=== PATIENT | female | born 1955 | race African-American/Black ===

== ENCOUNTER 2018-08-14 16:31 | Inpatient (IN) | payer MEDICARE, MEDICAID | END 2018-08-17 18:50 | LOC: ER 16:31 → OVERFLOW 20:49 → WEST WING 21:44 | DX: G40.89 Other seizures (principal); N18.6 End stage renal disease; I13.11 Hypertensive heart and chronic kidney disease without heart failure, with stage 5 chronic kidney disease, or end stage renal disease; E11.22 Type 2 diabetes mellitus with diabetic chronic kidney disease ==

== ENCOUNTER 2018-09-24 19:57 | Emergency (ER) | payer MEDICARE, MEDICAID ==
[~2018-09-24] VITALS: Ht 165.1 cm; Wt 68.0 kg
[~2018-09-24 19:57] MED LIST: ASP81EC PO; HYDR-4296 PO; KEP500T PO; MIRT15TA PO
[2018-09-24 21:20] LABS: Basophils # (auto) 0.1 uL; Basophils % (auto) 1.1 % (0.0-2.0); Eosinophils # (auto) 0.2 uL; Eosinophils % (auto) 1.7 % (0.0-7.0); Hematocrit 35.5 % (36.0-46.0); Hemoglobin 11.8 g/dL (12.2-16.2); Lymphocytes # (auto) 2.2 uL; Lymphocytes % (auto) 22.2 % (10.0-50.0); Mean Corpuscular Hemoglobin 30.3 pg (28.0-32.0); Mean Corpuscular Hgb Conc. 33.1 g/dL (32.0-36.0); Mean Corpuscular Volume 91.6 fL (80.0-100.0); Monocytes # (auto) 0.9 uL; Monocytes % (auto) 9.6 % (0.0-12.0); Neutrophils # (auto) 6.4 uL; Neutrophils % (auto) 65.4 % (37.0-80.0); Nucleated Red Blood Cells % 0.1 %; Platelet Count (auto) 217 10^3/uL (140-450); Red Blood Cells 3.88 10^6/uL (4.0-5.20); Red Cell Distribution Width 15.9 % (11.8-14.3); White Blood Cell 9.8 10^3/uL (4.4-10.8)
[2018-09-24 21:36] LABS: Albumin 3.5 g/dL (3.4-5.0)
[2018-09-24 21:40] LABS: BUN/Creatinine Ratio 4.1; Bilirubin, Total 0.6 mg/dL (0.2-1.0)
[2018-09-24 21:41] LABS: INR 0.96 (0.9-1.15); Prothrombin Time 10.3 sec (9.27-12.13)
[2018-09-24] MEDS ORDERED: LORazepam 2MG/ML-1ML VIAL ONE (21:47)
[2018-09-24] MEDS ORDERED: LORazepam 2MG/ML-1ML VIAL IV ONE (22:00)
[2018-09-24] MEDS ORDERED: cefTRIAXone 1GM/50ML D5W 50 ML IV ONE (23:15)
[2018-09-24] MEDS ORDERED: cefTRIAXone W LIDOCAINE 1 GM IM IM ONE (23:45)
[2018-09-25] MEDS ORDERED: cefTRIAXone SOD 1,000 MG VL ONE (00:17)
[2018-09-25 05:50] VITALS: BP 105/44
== END 2018-09-25 06:28 | disposition home or self-care (01) ==
LOC: EDBD → MERGE 20:02 → ER 20:02
DX: N30.01 Acute cystitis with hematuria (principal); E11.22 Type 2 diabetes mellitus with diabetic chronic kidney disease; I12.0 Hypertensive chronic kidney disease with stage 5 chronic kidney disease or end stage renal disease; N18.6 End stage renal disease; Z99.2 Dependence on renal dialysis; Z79.4 Long term (current) use of insulin; Z86.73 Personal history of transient ischemic attack (TIA), and cerebral infarction without residual deficits
CPT/HCPCS: 36415; 74176; 80053; 85025; 85610; 85730; 96372; 96374; 99284; J0696; J2060

== ENCOUNTER 2018-12-18 19:33 | Inpatient (IN) | payer MEDICARE, MEDICAID ==
[~2018-12-18] VITALS: Ht 162.6 cm; Wt 71.6 kg
[2018-12-18] MEDS ORDERED: cloNIDine HCL 0.1 MG TAB PO ONE (20:45)
[2018-12-18 20:55] LABS: Basophils # (auto) 0.1 uL; Basophils % (auto) 0.5 % (0.0-2.0); Eosinophils # (auto) 0 uL; Eosinophils % (auto) 0.4 % (0.0-7.0); Hematocrit 36.8 % (36.0-46.0); Lymphocytes # (auto) 1.5 uL; Lymphocytes % (auto) 14.1 % (10.0-50.0); Mean Corpuscular Hemoglobin 30.1 pg (28.0-32.0); Mean Corpuscular Hgb Conc. 32.7 g/dL (32.0-36.0); Mean Corpuscular Volume 91.9 fL (80.0-100.0); Monocytes # (auto) 0.9 uL; Monocytes % (auto) 8.4 % (0.0-12.0); Neutrophils # (auto) 8.4 uL; Neutrophils % (auto) 76.6 % (37.0-80.0); Nucleated Red Blood Cells % 0.1 %; Platelet Count (auto) 136 10^3/uL (140-450); Red Blood Cells 4.01 10^6/uL (4.0-5.20); Red Cell Distribution Width 15.1 % (11.8-14.3)
[2018-12-18 21:12] LABS: Chloride 101 mmol/L (98-107); Sodium 138 mmol/L (136-145)
[2018-12-18] MEDS ORDERED: MORPHINE SULF INJ 2 MG/ML SYRINGE 1ML IM ONE (21:15)
[2018-12-18 21:16] LABS: Alanine Aminotransferase 23 U/L (13-56); Albumin 3.8 g/dL (3.4-5.0); Anion Gap 14 (5-15); Aspartate Aminotransferase 28 U/L (15-37); BUN/Creatinine Ratio 5.7; Blood Alcohol < 3.0 mg/dL (0-5); Blood Urea Nitrogen 65 mg/dL (7-18); Carbon Dioxide 23 mmol/L (21-32); GFR African American 4 mL/min; GFR Non-African American 4 mL/min; Glucose 99 mg/dL (74-106)
[2018-12-18 21:18] LABS: Alkaline Phosphatase 192 U/L (45-117); Total Protein 9.4 g/dL (6.4-8.2)
[2018-12-18 21:23] LABS: Potassium 6.3 mmol/L (3.5-5.1)
[2018-12-18] MEDS ORDERED: ONDANSETRON HCL 4 MG/2 ML VIAL IV ONE (21:30)
[2018-12-18] MEDS ORDERED: SODIUM BICARBONATE 8.4 % INJ 50ML VIAL IV ONE (21:30)
[2018-12-18] MEDS ORDERED: DEXTROSE (50%) 50ML SYRG IV ONE (21:30)
[2018-12-18] MEDS ORDERED: InsuLIN REG 1unit/0.01ml Soln (100units/ml) IV ONE (21:30)
[2018-12-18] MEDS: CLOPIDOGREL BISULFATE 75 MG TAB PO ONE ×2 (23:11→23:20)
[2018-12-18] MEDS ORDERED: SODIUM CHLORIDE 0.9% 500 ML IV ONE (23:15)
[2018-12-19] VITALS (7 sets, daily range): BP systolic 139–163; BP diastolic 72–86
[2018-12-19] MEDS ORDERED: metroNIDAZOLE 500MG/100ML 100 ML IV ONE (00:45)
[2018-12-19] MEDS ORDERED: cefTRIAXone 1GM/50ML D5W 50 ML IV ONE (00:45)
[2018-12-19] MEDS ORDERED: ACETAMINOPHEN 500 MG TAB PO PRN (02:15)
[2018-12-19] MEDS ORDERED: LORazepam 2MG/ML-1ML VIAL IV PRN (02:15)
[2018-12-19] MEDS ORDERED: ONDANSETRON HCL 4 MG/2 ML VIAL IV PRN (02:15)
[2018-12-19] MEDS ORDERED: CALCIUM GLUC 4.65meq/50ml D5AE 50 ML IV ONE (02:15)
[2018-12-19] MEDS ORDERED: DEXTROSE (50%) 50ML SYRG IV PRN (03:00)
[2018-12-19 03:12] LABS: Basophils # (auto) 0 uL; Basophils % (auto) 0.3 % (0.0-2.0); Eosinophils # (auto) 0 uL; Eosinophils % (auto) 0.5 % (0.0-7.0); Lymphocytes # (auto) 1.9 uL; Mean Corpuscular Hemoglobin 29.9 pg (28.0-32.0); Mean Corpuscular Hgb Conc. 32.4 g/dL (32.0-36.0); Mean Corpuscular Volume 92.3 fL (80.0-100.0); Monocytes % (auto) 11.1 % (0.0-12.0); Neutrophils # (auto) 6.4 uL; Neutrophils % (auto) 68.1 % (37.0-80.0); Nucleated Red Blood Cells % 0.2 %; Platelet Count (auto) 122 10^3/uL (140-450); Red Blood Cells 3.69 10^6/uL (4.0-5.20); White Blood Cell 9.5 10^3/uL (4.4-10.8)
[2018-12-19 03:31] LABS: BUN/Creatinine Ratio 6.1; Calcium 10.1 mg/dL (8.5-10.1)
[2018-12-19 03:37] LABS: Potassium 6.4 mmol/L (3.5-5.1)
[2018-12-19] MEDS ORDERED: SODIUM BICARBONATE 8.4 % INJ 50ML VIAL IV ONE (03:45)
[2018-12-19] MEDS ORDERED: DEXTROSE (50%) 50ML SYRG IV ONE (03:45)
[2018-12-19] MEDS ORDERED: InsuLIN REG 1unit/0.01ml Soln (100units/ml) IV ONE (03:45)
[2018-12-19] MEDS ORDERED: hydrALAZINE HCL 20 MG/ML VL IV ONE (04:45)
[2018-12-19] MEDS: InsuLIN REG 1unit/0.01ml Soln (100units/ml) SC SCH ×3 (06:00→18:00)
[2018-12-19] MEDS: hydrALAZINE HCL 25 MG TAB PO SCH ×3 (06:00→22:14)
--- NOTE | 2018-12-19 06:10 | NUR ---
Telemetry admit from ER MIGUEL OLIVARES admitted to Telemetry unit after SBAR received. Patient oriented to Dania avendaño RN, unit, room, bed, and unit policies regarding patient care and visiting hours. Patient now on continuous telemetry monitoring, tele box # 31 and telemetry reading on arrival to unit is SINUS RHYTHM AT 63. Patient placed on bedside oxygen, weighed by bedscale and encouraged to call if they need something. All questions and concerns addressed, patient verbalized understanding. Note: FALL PRECAUTIONS AND SEIZURE PRECAUTIONS INITIATED. SOLE FILLER AT BEDSIDE. PATIENT AROUSABLE TO STERNAL RUB. WILL OPEN EYES AND THEN WILL CLOSE EYES AGAIN.
--- NOTE | 2018-12-19 06:25 | NUR ---
BLOOD SUGAR CHECKED, 27 MG/DL AND 32 MG/DL ON SECOND CHECK. WILL MEDICATED WITH D50. PATIENT UNABLE TO DRINK ANY JUICE AT THIS TIME.
[2018-12-19] MEDS: ACCU-CHEK COMFORT CURVE STRIP VI SCH ×3 (06:30→18:00)
--- NOTE | 2018-12-19 06:50 | NUR ---
PAGED HOSPITALIST RE; PRN FOR BP AND DIET. AWAITING CALLBACK.
--- NOTE | 2018-12-19 06:55 | NUR ---
RECHECKED BS - 118 MG/DL. CONTINUE PATIENT CARE
--- NOTE | 2018-12-19 07:35 | NUR ---
Opening Shift Note Assumed care of patient, currently sleeping, currently on 2L via NC, breathing even and unlabored, HOB >30, bed alarm on and call light within reach. No S/S of distress/SOB or pain reported at this time. Patient easily awakened via verbal and tactile stimuli, IV 20g to right upper shoulder site benign and patent, will continue to monitor for changes Q1hr and PRN.
--- NOTE | 2018-12-19 08:10 | NUR ---
FAMILY SPOKE WITH NIECE ANJANA, UPDATED ON POC, STATES PT LIVES AT HOME WITH HER, AND NOT AT A SNF, [facility]
--- NOTE | 2018-12-19 08:13 | NUR ---
PAGED DR CONDE REGARDING CONSULT AND DIALYSIS ORDERS, SPOKE WITH KWASI PENA
[2018-12-19] MEDS ORDERED: SODIUM CHL 0.9% 1000 ML BAG XX ONE (10:45)
--- NOTE | 2018-12-19 10:50 | NUR ---
ADJUNCT SPANISH INSTRUCTOR AT BEDSIDE GENARO S.S AT BEDSIDE DISCUSSING POC WITH PT, CONT CARE
[2018-12-19] MEDS: metroNIDAZOLE 500MG/100ML 100 ML IV SCH ×3 (10:58→22:12)
[2018-12-19] MEDS: LEVETIRACETAM 500 MG TAB PO SCH ×2 (10:58→22:15)
[2018-12-19] MEDS: PANTOPRAZOLE 40 MG TAB PO SCH (10:58)
--- NOTE | 2018-12-19 11:44 | NUR ---
DIALYSIS AT BEDSIDE FOR TX, PT ASYMPTOMATIC, AXOX4, CONT CARE
--- NOTE | 2018-12-19 15:06 | NUR ---
DIALYSIS TX ENDED 3.5L WERE REMOVED, AND VS 139/72, PT AWAKE AXOX4, REQUESTING MEAL, PT CURRENTLY NPO PENDING HIDA SCAN, PT UPDATED ON POC, CONT CARE
--- NOTE | 2018-12-19 15:32 | NUR ---
IV Insertion to Right Upper Arm, 20g, using US machine x 1 attempt. Sterile technique used, patent, intact. Tolerated well. Primary RN notified.
--- NOTE | 2018-12-19 15:48 | NUR ---
IV insertion IV access obtained, via clean sterile technique by inserting 20 gauge catheter at Right upper arm after 1 attempt by Radiology nurse Joseph. IV secured properly. No trauma to site. Patient tolerated well.
[2018-12-19] MEDS: SODIUM CHLORIDE 0.9% 1,000 ML IV SCH (16:15)
--- NOTE | 2018-12-19 16:15 | NUR ---
assessment Patient is a 63 year old female who is answering appropriately. Prior to admission patient lived home with her niece Zofia and functioned with assistance. Patient is on dialysis with [facility] . Patients emergency contact is Zofia her niece [phone]. I informed patient she has a right to speak to a medical social consultant regarding all care. I informed patient she has a right to participate in any and all discharge planning. Patient is aware of visiting hours on the hospital floor. I informed patient she has a right to privacy. Patient does not have a POA and advanced directive. I have offered patient information on POA and advanced directives. I informed the patient the advantages and benefits of having an Advanced Directive. Patient verbalized understanding and agreed to discharge plan. Per ss consult from SNF. Patient discharged from [facility] once her IV ABX was finished and went home with her family. Addendum: 12/19/18 at 1620 by Niesha PERAZA Amended: Links added.
--- NOTE | 2018-12-19 18:00 | NUR ---
SKIN SACRAL OPTIFOAM APPLIED FOR PREVENTATIVE REASON TO SACRUM, SITE INTACT, NO OPEN AREAS NOTED, ABD FOLD CONT TO APPLY Z-GUARD AND PLACE A PILLOW CASE TO MINIMIZE MOISTURE, CONT CARE
--- NOTE | 2018-12-19 19:05 | NUR ---
SHIFT REPORT GIVEN TO NIGHT RN LYNNETTE, PT CURRENTLY AWAKE, AXOX4, NO DISTRESS NOTED, BREATHING EVEN AND UNLABORED, NO C/O CP SOB, N/V AT THIS TIME, SIDE RAILS PADDED FOR SEIZURE PRECAUTIONS, HOB >30, CALL LIGHT WITHIN REACH AND BED ALARM ON
--- NOTE | 2018-12-19 19:45 | NUR ---
Opening Shift Note Assumed care of patient, that is awake and alert. No S/S of distress/SOB and patient is currently using nasal canula with 4 liters. Patient's has history of seizures so safety precautions set with padded side rails and bed at lowest height. Instructed POC which includes NPO after midnight for imaging on 12/20.Call light within reach and instructed to use for assist PRN, will continue to monitor. Signed: 12/19/18 at 2330 by SN AUSTIN <Co-Signature Required> Co-Signed: 12/19/18 at 2330 by LYNNETTE OHARA RN
[2018-12-19] MEDS: MIRTAZAPINE 30 MG TAB PO SCH (22:14)
[2018-12-20] MEDS: InsuLIN REG 1unit/0.01ml Soln (100units/ml) SC SCH ×5 (00:31→23:58)
[2018-12-20] MEDS: ACCU-CHEK COMFORT CURVE STRIP VI SCH ×5 (00:31→23:02)
[2018-12-20 04:49] VITALS: BP 136/68
[2018-12-20] MEDS: metroNIDAZOLE 500MG/100ML 100 ML IV SCH ×3 (05:32→22:00)
[2018-12-20] MEDS: hydrALAZINE HCL 25 MG TAB PO SCH ×3 (05:39→22:00)
[2018-12-20] MEDS: PANTOPRAZOLE 40 MG TAB PO SCH (06:11)
--- NOTE | 2018-12-20 07:30 | NUR ---
Opening Shift Note Assuming care of patient at this time. Patient is awake, alert, and oriented x4. Patient is resting in bed. Bed is locked and lowered with side rails upx2. Patient denies pain. Patient shows no signs or symptoms of distress or shortness of breath. Instructed patient on the plan of care for today and to call for assistance as needed. Patient is aware of nothing by mouth status. Will continue to round hourly and as needed. Call light within reach. Sitter at bedside.
--- NOTE | 2018-12-20 08:00 | NUR ---
Patient complaining of hunger Patient is complaining that she cannot have anything to eat. Notified patient that she cannot have anything to eat or drink due to her having a HIDA scan later today. Patient continues to say that she wants something to eat.
--- NOTE | 2018-12-20 08:30 | NUR ---
Patient Complaining of Hunger Patient is complaining of hunger and wants to eat. Reeducated patient on the upcoming procedure.
--- NOTE | 2018-12-20 08:45 | NUR ---
Patient complaining of Hunger Patient wants to eat. Told patient that she cannot have anything to eat. Educated patient on the upcoming procedure.
--- NOTE | 2018-12-20 08:52 | NUR ---
Call to Nuclear Medicine Patient will go to HIDA scan around 12 or 1 this afternoon. Will notify patient.
--- NOTE | 2018-12-20 08:55 | NUR ---
Call from Family Call from Niece at this time. Addressed all questions and concerns at this time.
[2018-12-20 09:00] VITALS: BP 104/44
[2018-12-20 09:32] LABS: Albumin 3.2 g/dL (3.4-5.0); Calcium 9.2 mg/dL (8.5-10.1); Magnesium 2.4 mg/dL (1.6-2.6); Potassium 4.5 mmol/L (3.5-5.1)
[2018-12-20 09:35] LABS: BUN/Creatinine Ratio 5.4; Bilirubin, Total 0.5 mg/dL (0.2-1.0); Total Protein 7.7 g/dL (6.4-8.2)
--- NOTE | 2018-12-20 09:45 | NUR ---
Patient wanting to leave AMA Patient verbalized that she wants to sign out of the hospital. Sandra notified.
--- NOTE | 2018-12-20 10:00 | NUR ---
Call from Nuclear Medicine Call from Nuclear Medicine. Patient will be going down to HIDA scan.
--- NOTE | 2018-12-20 10:21 | NUR ---
IV Insertion to Right Upper Arm, 20g x 1 attempt using US machine and with sterile technique. Called by Nuclear Medicine in Radiology. Tolerated well. Previous IV removed, infiltrated, not patent.
[2018-12-20] MEDS: LEVETIRACETAM 500 MG TAB PO SCH ×2 (11:22→22:00)
[2018-12-20] MEDS: cefTRIAXone 1GM/50ML D5W 50 ML IV SCH (11:23)
[2018-12-20] MEDS: SODIUM CHLORIDE 0.9% 1,000 ML IV SCH (12:23)
[2018-12-20 13:00] VITALS: BP 107/51
[2018-12-20 13:47] LABS: Basophils # (auto) 0.1 uL; Basophils % (auto) 1.3 % (0.0-2.0); Eosinophils # (auto) 0.2 uL; Eosinophils % (auto) 3.8 % (0.0-7.0); Hemoglobin 10.8 g/dL (12.2-16.2); Lymphocytes # (auto) 1.4 uL; Lymphocytes % (auto) 26.8 % (10.0-50.0); Mean Corpuscular Hemoglobin 29.8 pg (28.0-32.0); Mean Corpuscular Hgb Conc. 32.6 g/dL (32.0-36.0); Mean Corpuscular Volume 91.4 fL (80.0-100.0); Monocytes # (auto) 0.7 uL; Neutrophils # (auto) 2.8 uL; Neutrophils % (auto) 54.1 % (37.0-80.0); Nucleated Red Blood Cells % 0.1 %; Platelet Count (auto) 121 10^3/uL (140-450); Red Blood Cells 3.61 10^6/uL (4.0-5.20); Red Cell Distribution Width 14.8 % (11.8-14.3); White Blood Cell 5.2 10^3/uL (4.4-10.8)
--- NOTE | 2018-12-20 15:36 | NUR ---
Page to Dr. Georges Page to Dr. Georges at this time. Patient is requesting to be discharged.
[2018-12-20 17:00] VITALS: BP 99/54
--- NOTE | 2018-12-20 19:30 | NUR ---
Opening Shift Note Assumed care of patient, that is awake and alert X4 with PERIODS OF CONFUSION. Sitter at bed side for safety. No S/S of distress/SOB. Denies pain at this time. Patient's has history of seizures so safety precautions set with padded side rails and bed at lowest height. Call light within reach and instructed to use for assist PRN, will continue to monitor.
--- NOTE | 2018-12-20 19:33 | NUR ---
Closing Note Patient is resting in bed. Patient denies pain. Patient is expressing that she wants to go home. Report given. Will endorse care to the shift foreman RN.
--- NOTE | 2018-12-20 19:45 | NUR ---
OFF TELE REFUSING TO LET THIS RN FIX ELECTRODES. PATIENT STATED, " JUST GO AWAY." "LEAVE ME ALONE." TELECOM COORDINATOR ALSO ATTEMPTED TO FIX ELECTRODES PATIENT CONTINUED TO REFUSE.
--- NOTE | 2018-12-20 19:51 | NUR ---
CALLED SECURITY PATIENT OUT OF BED, SITTING ON END OF BED RAIL. REFUSING TO GET BACK IN BED OR THE CHAIR. PATIENT UNSTEADY AT RISK FOR FALLS. PATIENT HAS PERIODS OF CONFUSION. BECOMING INCREASINGLY AGITATED AND ANXIOUS. 1999-SECURITY NOW AT BEDSIDE. PATIENT CRYING STATED MULTIPLE TIME, "JUST LEAVE ME ALONE." EXPLAINED TO PATIENT SHE WAS A FALL RISK AND DIDN'T WANT HER TO FALL. PATIENT YELLING AT STAFF AND SECURITY. CRYING AT TIMES. WITH ASSISTANCE HELPED PATIENT SIT IN CHAIR NEXT TO BED .
--- NOTE | 2018-12-20 20:40 | NUR ---
HOSPITALIST CAMILA CALLED BACK INFORMER HER THAT PATIENT HAD BECOME AGITATED AND WAS HAVING PERIODS OF CONFUSION. SHE WAS REFUSING TO GET BACK IN BED, SHE WAS UNSTEADY AND AT RISK FOR FALLING. ORDERS RECEIVED READ BACK AND VERIFIED. ATIVAN IV Q8 PRN
[2018-12-20] MEDS ORDERED: LORazepam 2MG/ML-1ML VIAL IV PRN (20:45)
[2018-12-20 22:00] VITALS: BP 138/66
[2018-12-20] MEDS: MIRTAZAPINE 30 MG TAB PO SCH (22:00)
--- NOTE | 2018-12-21 | NUR ---
OFF TELE STILL REFUSING TO WEAR TELE BOX DESPITE EDUCATION ON IMPORTANCE OF MONITORING HEART.
--- NOTE | 2018-12-21 02:30 | NUR ---
ROUNDS PATIENT SLEEPING NO S/S OF DISTRESS OR SOB AT THIS TIME. RESPIRATIONS EVEN AND UNLABORED.
[2018-12-21 05:21] VITALS: BP 143/55
--- NOTE | 2018-12-21 05:45 | NUR ---
refusing morning medication
[2018-12-21] MEDS: metroNIDAZOLE 500MG/100ML 100 ML IV SCH ×2 (05:59→14:00)
[2018-12-21] MEDS: hydrALAZINE HCL 25 MG TAB PO SCH ×2 (06:00→13:27)
[2018-12-21] MEDS: InsuLIN REG 1unit/0.01ml Soln (100units/ml) SC SCH ×2 (06:00→11:06)
[2018-12-21] MEDS: ACCU-CHEK COMFORT CURVE STRIP VI SCH ×2 (06:00→11:06)
[2018-12-21] MEDS ORDERED: HEPARIN 1,000 UNITS/ml 1ML VIAL IV ONE ×2 (07:00)
[2018-12-21] MEDS ORDERED: SODIUM CHL 0.9% 1000 ML BAG XX ONE (07:00)
[2018-12-21] MEDS: PANTOPRAZOLE 40 MG TAB PO SCH ×2 (07:30→13:28)
--- NOTE | 2018-12-21 07:30 | NUR ---
Opening Shift Note Assuming care of patient at this time. Patient is awake and alert. Patient denies pain. Patient verbalizes that she wants to go home. Patient is resting in bed with bed locked and lowered with side rails up x2. Instructed patient on the plan of care for today and to call for assistance as needed. Will continue to round hourly and as needed.
--- NOTE | 2018-12-21 07:32 | NUR ---
Refusing Medication Patient is refusing her morning medication, Protonix, at this time. Educated patient on the need to take her medications as prescribed. Patient still continues to refuse. Will continue to educate.
[2018-12-21] MEDS: SODIUM CHLORIDE 0.9% 1,000 ML IV SCH (08:15)
--- NOTE | 2018-12-21 08:25 | NUR ---
Refusing Tele Box Patient is refusing to wear tele box at this time. Patient states, "There is nothing wrong with my heart." Educated patient on the importance of wearing monitor per doctor's orders but patient continues to refuse.
[2018-12-21] MEDS: cefTRIAXone 1GM/50ML D5W 50 ML IV SCH (08:51)
[2018-12-21] MEDS: LEVETIRACETAM 500 MG TAB PO SCH (08:52)
[2018-12-21 09:41] VITALS: BP 97/54
--- NOTE | 2018-12-21 11:40 | NUR ---
Call to Niece Call to patient's niece at this time to notify of discharge. No answer at this time. Will attempt to talk to niece at a later time.
--- NOTE | 2018-12-21 12:08 | NUR ---
Call to Niece Call to Patient's niece at this time. No answer. Will attempt to call again at a later time.
--- NOTE | 2018-12-21 12:13 | NUR ---
Patient refusing dialysis Patient refusing dialysis at this time. Educated patient on the importance of receiving treatment before discharge. Patient verbalizes understanding. Patient will get dialysis after she eats her lunch. Will attempt to contact niece again to make aware of discharge.
--- NOTE | 2018-12-21 12:17 | NUR ---
Spoke with Sandra Flores, Ivy, is aware of patient's discharge. Ivy has no way to sampler pickup patient. Will attempt to get taxi voucher for patient.
--- NOTE | 2018-12-21 12:20 | NUR ---
Call to Consumer Services Consultant Call to material handling warehouse supervisor at this time. No answer. Will call again.
--- NOTE | 2018-12-21 12:38 | NUR ---
Re: Taxi Voucher Spoke with housekeeper, Miriam. Will bring taxi voucher for patient to use once dialysis is finished.
[2018-12-21 12:42] VITALS: BP 97/54
[2018-12-21] MEDS ORDERED: diphenhdrAMINE HCL 50 MG/1 ML VL IM ONE (13:00)
--- NOTE | 2018-12-21 16:00 | NUR ---
Dialysis Dialysis is complete. Blood pressure is 141/75 at this time. Per Dialysis nurse, 3L removed at this time. Patient is ready for discharge.
--- NOTE | 2018-12-21 17:20 | NUR ---
Patient discharged Discharge instructions given as ordered. Encourage to follow up with PMD as instructed. All questions and concerns addressed. Patient verbalized understanding. IV removed with catheter intact, pressure dressing applied. Telemetry unit returned to [facility]. Patient taken to vehicle via wheelchair with all personal belongings, accompanied by staff. Taxi is downstairs to knot picker cloth patient to take to [place] address that niece gave. No distress noted at time of departure.
== END 2018-12-21 17:20 | disposition home or self-care (01) | DRG 70 ==
LOC: EDUNIT# 19:33 → EDBD 19:33 → ER 19:38 → TELE 12-19 02:32 → TELE-WESTW 12-19 06:07
PROVIDERS: ADMIT Nurse Practitioner Family; ATTEND Internal Medicine
PROC: 5A1D70Z Performance of Urinary Filtration, Intermittent, Less than 6 Hours Per Day (ICD-10-PCS; principal; 2018-12-19)
PROC: 5A1D70Z Performance of Urinary Filtration, Intermittent, Less than 6 Hours Per Day (ICD-10-PCS; 2018-12-21)
DX: G93.41 Metabolic encephalopathy (principal); N18.6 End stage renal disease; I12.0 Hypertensive chronic kidney disease with stage 5 chronic kidney disease or end stage renal disease; E87.5 Hyperkalemia; G40.909 Epilepsy, unspecified, not intractable, without status epilepticus; D63.8 Anemia in other chronic diseases classified elsewhere; F43.20 Adjustment disorder, unspecified; F32.9 Major depressive disorder, single episode, unspecified; E11.22 Type 2 diabetes mellitus with diabetic chronic kidney disease; K57.30 Diverticulosis of large intestine without perforation or abscess without bleeding; E78.5 Hyperlipidemia, unspecified; E87.70 Fluid overload, unspecified; Z99.2 Dependence on renal dialysis; Z95.0 Presence of cardiac pacemaker; Z86.73 Personal history of transient ischemic attack (TIA), and cerebral infarction without residual deficits; Z79.84 Long term (current) use of oral hypoglycemic drugs
CPT/HCPCS: 36415; 70450; 71045; 74176; 76705; 78226; 80048; 80053; 80061; 80320; 82140; 82962; 83036; 83690; 83735; 84132; 84484; 85025; 87040; 87081; 90935; 93005; 94761; 96365; 96366; 96375; G0378; J0610; J0696; J1815; J2405; J3490

== ENCOUNTER 2019-01-01 14:35 | Inpatient (IN) | payer MEDICARE, MEDICAID ==
[~2019-01-01] VITALS: Ht 160 cm; Wt 68.2 kg
[2019-01-01] MEDS ORDERED: SODIUM CHLORIDE 0.9% 1,000 ML IV ONE (15:33)
[2019-01-01] MEDS ORDERED: LORazepam 2MG/ML-1ML VIAL IV ONE (15:45)
[2019-01-01 15:47] LABS: Basophils # (auto) 0.1 uL; Basophils % (auto) 1.4 % (0.0-2.0); Eosinophils # (auto) 0.1 uL; Eosinophils % (auto) 1.2 % (0.0-7.0); Hematocrit 32.6 % (36.0-46.0); Hemoglobin 10.7 g/dL (12.2-16.2); Lymphocytes # (auto) 1.9 uL; Lymphocytes % (auto) 22.3 % (10.0-50.0); Mean Corpuscular Hgb Conc. 32.8 g/dL (32.0-36.0); Mean Corpuscular Volume 91.3 fL (80.0-100.0); Monocytes # (auto) 0.9 uL; Monocytes % (auto) 11.1 % (0.0-12.0); Neutrophils # (auto) 5.4 uL; Nucleated Red Blood Cells % 0.1 %; Platelet Count (auto) 128 10^3/uL (140-450); Red Blood Cells 3.56 10^6/uL (4.0-5.20); Red Cell Distribution Width 14.7 % (11.8-14.3); White Blood Cell 8.4 10^3/uL (4.4-10.8)
[2019-01-01 16:03] LABS: Albumin 3.3 g/dL (3.4-5.0); Anion Gap 8 (5-15); Blood Urea Nitrogen 36 mg/dL (7-18); Calcium 10.5 mg/dL (8.5-10.1); Carbon Dioxide 32 mmol/L (21-32); Chloride 101 mmol/L (98-107); Glucose 79 mg/dL (74-106); Potassium 4.9 mmol/L (3.5-5.1); Sodium 141 mmol/L (136-145)
[2019-01-01 16:10] LABS: Alanine Aminotransferase 22 U/L (13-56); Alkaline Phosphatase 183 U/L (45-117); Aspartate Aminotransferase 23 U/L (15-37); BUN/Creatinine Ratio 4.8; Bilirubin, Total 0.6 mg/dL (0.2-1.0); GFR African American 7 mL/min; GFR Non-African American 6 mL/min; Total Protein 8.2 g/dL (6.4-8.2)
[2019-01-01] MEDS ORDERED: MORPHINE SULF INJ 2 MG/ML SYRINGE 1ML IV PRN (19:45)
[2019-01-01] MEDS ORDERED: NITROGLYCERIN 0.4 MG SL TAB SL PRN (19:45)
--- NOTE | 2019-01-01 21:35 | NUR ---
Patient transferred from ER via gurney/bed. Patient sleeping with eyes closed, arousable to verbal stimuli, however will close eyes immediately. Patient alert and oriented x 2 with periods of forgetfulness and episodes of confusion. Patient's respiration even and unlabored, on O2 at 2lpm via nasal cannula with 100% O2 saturation tolerating well. Patient noted with frequent head banging movements, encouraged patient to calm self, however, per patient "I cannot help it" Side rails padded and extra pillows provided for safety. Patient refused body assessment at this time and patient unable to answer admission questions, patient requested RN to call Ximena Pedro/ torri for information, however, patient unable to provide contact number. Patient's chart person to notify noted "none, per patient". No family at bedside. Called the number in patient's chart, however, "disconnected". Plan of care discussed, however patient went back to sleep. Will continue to monitor.
--- NOTE | 2019-01-01 21:40 | NUR ---
Home meds unable to verify/ obtain at this time.
[2019-01-01] MEDS: HYDRALAZINE HCL 25 MG PO SCH (22:00)
[2019-01-01 22:33] VITALS: BP 144/95
[2019-01-02] MEDS: LORazepam 2MG/ML-1ML VIAL IV PRN ×2 (00:45→12:56)
--- NOTE | 2019-01-02 00:45 | NUR ---
Patient had one episode of seizure lasted for 60 seconds. Lorazepam administered as ordered. Patient placed on her side with head of bed elevated post ictal. Vital signs taken 160/55, 79, 18, 95%. Will continue to monitor.
[2019-01-02] MEDS: HYDRALAZINE HCL 25 MG PO SCH ×3 (05:27→22:00)
[2019-01-02 05:48] VITALS: BP 161/106
--- NOTE | 2019-01-02 06:18 | NUR ---
MRSA swab done, sent to lab via bullet.
--- NOTE | 2019-01-02 06:30 | NUR ---
Received call from Dialysis nurse from [facility] dialysis. Per nurse, will be in the facility at 7am.
[2019-01-02 08:03] LABS: Basophils # (auto) 0.1 uL; Eosinophils # (auto) 0.1 uL; Eosinophils % (auto) 2.5 % (0.0-7.0); Hematocrit 30.8 % (36.0-46.0); Hemoglobin 10.1 g/dL (12.2-16.2); Lymphocytes # (auto) 1.2 uL; Lymphocytes % (auto) 24.5 % (10.0-50.0); Mean Corpuscular Hemoglobin 29.9 pg (28.0-32.0); Mean Corpuscular Hgb Conc. 32.9 g/dL (32.0-36.0); Monocytes # (auto) 0.4 uL; Monocytes % (auto) 7.7 % (0.0-12.0); Neutrophils # (auto) 3.2 uL; Neutrophils % (auto) 64.3 % (37.0-80.0); Nucleated Red Blood Cells % 0.1 %; Platelet Count (auto) 116 10^3/uL (140-450); Red Blood Cells 3.39 10^6/uL (4.0-5.20); Red Cell Distribution Width 14.9 % (11.8-14.3); White Blood Cell 4.9 10^3/uL (4.4-10.8)
[2019-01-02 08:22] LABS: Potassium 4.3 mmol/L (3.5-5.1)
[2019-01-02 08:25] LABS: BUN/Creatinine Ratio 4.8; Bilirubin, Total 0.5 mg/dL (0.2-1.0); Total Protein 7.5 g/dL (6.4-8.2)
[2019-01-02 09:00] VITALS: BP 174/100
[2019-01-02] MEDS ORDERED: LEVETIRACETAM INJ 1,000 MG in D5W 5% 100 ML IV SCH (10:00)
[2019-01-02] MEDS: PANTOPRAZOLE 40 MG TAB PO SCH (11:12)
[2019-01-02] MEDS: ASPirin-EC 81 mg tab PO SCH (11:12)
[2019-01-02 13:00] VITALS: BP 149/76
[2019-01-02] MEDS: IBUPROFEN 600 MG TAB PO PRN ×2 (13:04→22:30)
[2019-01-02 17:00] VITALS: BP 146/72
--- NOTE | 2019-01-02 19:30 | NUR ---
Opening shift note Patient in bed sleeping with eyes closed easily arousable to verbal stimuli. Patient's respiration even and unlabored, denies pain and discomfort at this time. Plan of care discussed, patient verbalized understanding. All needs attended, will continue to monitor.
--- NOTE | 2019-01-02 21:30 | NUR ---
Patient requested for sandwich and juice. All needs attended, will continue to monitor.
[2019-01-02 22:00] VITALS: BP 135/105
--- NOTE | 2019-01-02 22:00 | NUR ---
POM Called Ivy/torri for patient's POM. Per Zofia, will bring medication in the am.
[2019-01-03 05:00] VITALS: BP 155/74
[2019-01-03] MEDS: HYDRALAZINE HCL 25 MG PO SCH ×3 (05:20→21:23)
[2019-01-03] MEDS ORDERED: SODIUM CHL 0.9% 1000 ML BAG XX ONE (07:00)
[2019-01-03 09:00] VITALS: BP 159/84
[2019-01-03] MEDS: ASPirin-EC 81 mg tab PO SCH (10:24)
[2019-01-03] MEDS: PANTOPRAZOLE 40 MG TAB PO SCH (10:24)
[2019-01-03] MEDS ORDERED: LEVETIRACETAM 500 MG TAB PO ONE (10:30)
[2019-01-03 13:00] VITALS: BP 159/93
[2019-01-03 17:00] VITALS: BP 154/60
--- NOTE | 2019-01-03 19:05 | NUR ---
DR. SIDHU AT BEDSIDE.
--- NOTE | 2019-01-03 19:06 | NUR ---
VERBAL ORDERS RECEIVED READ BACK AND VERIFIED IV ATIVAN 0.5MG Q6 PRN FOR ANXIETY
--- NOTE | 2019-01-03 19:15 | NUR ---
PATIENT YELLING TOOK OFF TELE BOX AND PULLED OUT IV. SITTING ON SIDE OF BED. ANXIOUS, CRYING AND YELLING. REQUESTING TO LEAVE. PER DR SIDHU PATIENT NOT STABLE TO LEAVE AT THIS TIME. EXPLAINED TO PATIENT SHE IS NOT MEDICALLY CLEARED AT THIS TIME SHE IS SCHEDULED FOR DIALYSIS TOMORROW. PATIENT CONTINUES TO BE UPSET. REFUSING ALL TREATMENT AT THIS TIME. WILL REQUEST SITTER FOR SAFETY.WILL INFORM CHARGE NURSE ODESSA.
--- NOTE | 2019-01-03 19:30 | NUR ---
SPOKE WITH FAMILY, CECILIA UPDATED WITH PATIENT STATUS. DR. SIDHU DOES NOT RECOMMEND PATIENT TO BE TO GO HOME AT THIS TIME. PATIENT AGITATED, CRYING AND WANTING TO GO HOME. PER CECILIA SHE IS NOT IN TOWN SHE IS IN [place]. PATIENT REFUSING TO TALK TO CECILIA.
[2019-01-03] MEDS ORDERED: LORazepam 2MG/ML-1ML VIAL IV PRN (20:00)
--- NOTE | 2019-01-03 20:00 | NUR ---
DESPITE EDUCATION PATIENT REFUSING PHYSICAL EXAM AND REPLACING IV. EXPLAINED THE RISKS AND BENEFITS. PATIENT CONTINUES TO REFUSE. SITTER AT BEDSIDE FOR SAFETY.
[2019-01-03] MEDS ORDERED: EPOETIN ALFA 4,000 UNIT/ML VL SC ONE (21:00)
[2019-01-03] MEDS: LEVETIRACETAM 500 MG TAB PO SCH (21:21)
--- NOTE | 2019-01-03 22:00 | NUR ---
IV START KIT AT BEDSIDE FOR EMERGENCY. PATIENT IS ON SEIZURE PRECAUTIONS. BED LOCKED IN LOWEST POSITION. SIDE RALES PADDED. PATIENT CONTINUES TO REFUSE IV PLACEMENT. SITTER AT BEDSIDE FOR SAFETY.
[2019-01-04 00:12] VITALS: BP 121/76
--- NOTE | 2019-01-04 04:30 | NUR ---
ATTEMPTED TO PLACE TELE BOX ON PATIENT BECAME UPSET STATED " NO ONE IS TOUCHING ME."
[2019-01-04] MEDS: HYDRALAZINE HCL 25 MG PO SCH (05:01)
[2019-01-04 05:37] VITALS: BP 161/84
[2019-01-04] MEDS ORDERED: SODIUM CHL 0.9% 1000 ML BAG XX ONE (07:00)
--- NOTE | 2019-01-04 07:20 | NUR ---
Opening Shift Note Assumed care of patient, awake and alert. No S/S of distress/SOB or pain. Patient is on-going dialysis at this time. Instructed on POC-continue medications as ordered, seizure precautions. Patient informed to call for assist PRN, will continue to monitor for changes Q1hr and PRN.
[2019-01-04 08:30] VITALS: BP 176/82
--- NOTE | 2019-01-04 08:56 | NUR ---
Called patient's niece, Ivy, left a message as call was not answered and informed niece that patient wanted to leave hospital and wanted to go home. Informed niece that patient may not be ready for discharge yet. Awaiting phone call. Charge nurse Maeto made aware of this.
[2019-01-04] MEDS: PANTOPRAZOLE 40 MG TAB PO SCH (10:14)
[2019-01-04] MEDS: LEVETIRACETAM 500 MG TAB PO SCH (10:14)
[2019-01-04] MEDS: ASPirin-EC 81 mg tab PO SCH (10:14)
--- NOTE | 2019-01-04 11:00 | NUR ---
Hemodialysis finished, per spray technician, 3L off. Patient is stable.
--- NOTE | 2019-01-04 12:08 | NUR ---
Page Dr. Atkinson to clarify if patient needs a statin order as per protocol, patient has a discharge diagnosis of chronic stroke. Awaiting call back from MD. Charge nurse Mateo also made aware.
[2019-01-04 12:25] VITALS: BP 148/97
--- NOTE | 2019-01-04 12:40 | NUR ---
Page Dr. Atkinson again to clarify if patient needs a statin order as per protocol, patient has a discharge diagnosis of chronic stroke. Awaiting call back from MD. Charge nurse Mateo also made aware that MD has not called back.
--- NOTE | 2019-01-04 12:45 | NUR ---
Dr. Atkinson called back, asked if patient needs to be on statin as per protocol, patient diagnosed with stroke needs to be on statin and on an anticoagulant. MD said that patient does not need to be on statin as this is chronic stroke, it is not acute stroke.
--- NOTE | 2019-01-04 13:30 | NUR ---
Discharge Discharge instructions given as ordered. Encourage to follow up with Primary MD and with Neurologist Dr. Dubon as instructed. Patient instructed to call doctor's offices on Sunday to book for an appointment as today is weekend, no appointment was made. All questions and concerns addressed. Patient verbalized understanding. Patient refused the pneumonia vaccine. Patient no longer has IV as she removed it already since last night. Telemetry unit returned to [facility] since this morning as patient is refusing to have it. Patient taken to vehicle via wheelchair with all personal belongings, accompanied by staff and family member is awaiting for her in the lobby. No distress noted at time of departure.
== END 2019-01-04 13:30 | disposition home or self-care (01) | DRG 100 ==
LOC: EDUNIT# 14:35 → EDBD 14:42 → ER 14:42 → TELE 19:42 → TELE-EAST 21:36
PROVIDERS: ADMIT Nurse Practitioner Acute Care; ATTEND Internal Medicine Pulmonary Disease
PROC: 5A1D70Z Performance of Urinary Filtration, Intermittent, Less than 6 Hours Per Day (ICD-10-PCS; principal; 2019-01-02)
PROC: 5A1D70Z Performance of Urinary Filtration, Intermittent, Less than 6 Hours Per Day (ICD-10-PCS; 2019-01-04)
DX: G40.901 Epilepsy, unspecified, not intractable, with status epilepticus (principal); N18.6 End stage renal disease; I50.23 Acute on chronic systolic (congestive) heart failure; E44.0 Moderate protein-calorie malnutrition; N17.9 Acute kidney failure, unspecified; I13.2 Hypertensive heart and chronic kidney disease with heart failure and with stage 5 chronic kidney disease, or end stage renal disease; I69.351 Hemiplegia and hemiparesis following cerebral infarction affecting right dominant side; D63.1 Anemia in chronic kidney disease; E11.22 Type 2 diabetes mellitus with diabetic chronic kidney disease; E83.52 Hypercalcemia; F17.200 Nicotine dependence, unspecified, uncomplicated; F41.9 Anxiety disorder, unspecified; F32.9 Major depressive disorder, single episode, unspecified; R27.0 Ataxia, unspecified; G93.89 Other specified disorders of brain; Z79.899 Other long term (current) drug therapy; Z82.3 Family history of stroke; Z83.3 Family history of diabetes mellitus; Z99.2 Dependence on renal dialysis; Z68.26 Body mass index [BMI] 26.0-26.9, adult; Z88.6 Allergy status to analgesic agent; Z88.5 Allergy status to narcotic agent; Z88.7 Allergy status to serum and vaccine
CPT/HCPCS: 36415; 71045; 80053; 82542; 83735; 84484; 85025; 87081; 90935; 93005; 94761; 96361; 96365; 96375; G0378; J1642; J7060

== ENCOUNTER 2019-04-30 10:54 | Emergency (ER) | payer MEDICARE, MEDICAID ==
[2019-04-30] MEDS ORDERED: SODIUM CHLORIDE 0.9% 1,000 ML IV ONE (11:16)
[2019-04-30] MEDS ORDERED: LORazepam 2MG/ML-1ML VIAL IV ONE (11:30)
[2019-04-30 13:47] LABS: Hematocrit 36.5 % (36.0-46.0); Hemoglobin 12.2 g/dL (12.2-16.2); Mean Corpuscular Hemoglobin 29.8 pg (28.0-32.0); Mean Corpuscular Hgb Conc. 33.5 g/dL (32.0-36.0); Platelet Count (auto) 160 10^3/uL (140-450); Red Blood Cells 4.09 10^6/uL (4.0-5.20); Red Cell Distribution Width 15.6 % (11.8-14.3); White Blood Cell 7.7 10^3/uL (4.4-10.8)
[2019-04-30 13:55] LABS: Basophils % (manual) 0 (0.0-2.0); Blast Cells 0; Eosinophils % (manual) 0 (0-7); Lymphocytes % (manual) 0 (10.0-50.0); Metamyelocytes % 0; Monocytes % (manual) 0 (0-12); Myelocytes % 0; Promyelocytes % 0; Reactive Lymphocytes 0
[2019-04-30 14:04] LABS: Albumin 3.2 g/dL (3.4-5.0); Potassium 3.7 mmol/L (3.5-5.1)
[2019-04-30 14:08] LABS: BUN/Creatinine Ratio 3.8; Bilirubin, Total 0.5 mg/dL (0.2-1.0); Total Protein 8.6 g/dL (6.4-8.2)
[2019-04-30 14:14] LABS: Basophils # (auto) 0.1 uL; Basophils % (auto) 0.8 % (0.0-2.0); Eosinophils # (auto) 0.1 uL; Eosinophils % (auto) 1.1 % (0.0-7.0); Lymphocytes # (auto) 1.5 uL; Lymphocytes % (auto) 19.8 % (10.0-50.0); Monocytes # (auto) 1.4 uL; Monocytes % (auto) 17.9 % (0.0-12.0); Neutrophils # (auto) 4.6 uL; Neutrophils % (auto) 60.4 % (37.0-80.0); Nucleated Red Blood Cells % 0.1 %
[2019-04-30] MEDS ORDERED: LEVETIRACETAM 500 MG TAB PO ONE (14:30)
[2019-04-30] MEDS ORDERED: LORazepam 0.5 MG TAB PO ONE (14:30)
[2019-04-30 15:53] VITALS: BP 146/45
== END 2019-04-30 17:24 | disposition home or self-care (01) ==
LOC: EDBD 10:54 → EDUNIT# 10:54 → ER 10:54
DX: G40.909 Epilepsy, unspecified, not intractable, without status epilepticus (principal); E11.22 Type 2 diabetes mellitus with diabetic chronic kidney disease; I12.0 Hypertensive chronic kidney disease with stage 5 chronic kidney disease or end stage renal disease; N18.6 End stage renal disease; Z95.0 Presence of cardiac pacemaker
CPT/HCPCS: 36415; 70450; 71045; 80053; 83735; 85007; 85025; 85027; 93005; 99284; J2060

== ENCOUNTER 2019-05-02 17:14 | Inpatient (IN) | payer MEDICARE, MEDICAID ==
[~2019-05-02] VITALS: Ht 157.5 cm; Wt 60.0 kg
[2019-05-02] MEDS ORDERED: LORazepam 2MG/ML-1ML VIAL IV ONE ×2 (18:45→20:15)
[2019-05-02] MEDS ORDERED: ONDANSETRON HCL 4 MG/2 ML VIAL IV ONE (18:45)
[2019-05-02 20:43] LABS: Basophils # (auto) 0 uL; Basophils % (auto) 0.7 % (0.0-2.0); Eosinophils # (auto) 0.1 uL; Eosinophils % (auto) 0.9 % (0.0-7.0); Hematocrit 36.3 % (36.0-46.0); Hemoglobin 11.8 g/dL (12.2-16.2); Lymphocytes # (auto) 1.2 uL; Mean Corpuscular Hgb Conc. 32.6 g/dL (32.0-36.0); Monocytes # (auto) 0.9 uL; Monocytes % (auto) 12.7 % (0.0-12.0); Neutrophils # (auto) 4.9 uL; Neutrophils % (auto) 68.7 % (37.0-80.0); Nucleated Red Blood Cells % 0.2 %; Platelet Count (auto) 167 10^3/uL (140-450); Red Blood Cells 3.94 10^6/uL (4.0-5.20); Red Cell Distribution Width 15.4 % (11.8-14.3); White Blood Cell 7.1 10^3/uL (4.4-10.8)
[2019-05-02 20:51] LABS: INR 1.03 (0.9-1.15); Partial Thromboplastin Time 33.4 sec (23.64-32.05)
[2019-05-02 21:17] LABS: Chloride 96 mmol/L (98-107); Lipase 110 U/L (73-393); Potassium 3.4 mmol/L (3.5-5.1); Sodium 137 mmol/L (136-145)
[2019-05-02 21:22] LABS: Alanine Aminotransferase 19 U/L (13-56); Albumin 3.4 g/dL (3.4-5.0); Alkaline Phosphatase 140 U/L (45-117); Amylase 75 U/L (25-115); Anion Gap 10 (5-15); Aspartate Aminotransferase 23 U/L (15-37); BUN/Creatinine Ratio 2.9; Bilirubin, Total 0.5 mg/dL (0.2-1.0); Blood Urea Nitrogen 17 mg/dL (7-18); Calcium 9.9 mg/dL (8.5-10.1); Carbon Dioxide 31 mmol/L (21-32); GFR African American 9 mL/min; GFR Non-African American 8 mL/min; Glucose 95 mg/dL (74-106); Magnesium 2.3 mg/dL (1.6-2.6)
[2019-05-03] MEDS ORDERED: SODIUM CHLORIDE 0.9% 1,000 ML IV ONE (00:15)
[2019-05-03] MEDS ORDERED: OCTREOTIDE ACETATE 500 MCG in SODIUM CHL 0.9% 99 ML IV SCH (06:00)
[2019-05-03] MEDS ORDERED: LEVETIRACETAM INJ 1,000 MG in D5W 5% 100 ML IV ONE (06:00)
[2019-05-03] MEDS ORDERED: OCTREOTIDE ACETATE 100 MCG in SODIUM CHL 0.9% 50 ML IV ONE (06:00)
[2019-05-03] MEDS ORDERED: LORazepam 2MG/ML-1ML VIAL IV PRN (06:30)
[2019-05-03] MEDS ORDERED: NITROGLYCERIN 0.4 MG SL TAB SL PRN (06:30)
[2019-05-03] MEDS ORDERED: MORPHINE SULF INJ 2 MG/ML SYRINGE 1ML IV PRN (06:30)
[2019-05-03] MEDS ORDERED: ONDANSETRON HCL 4 MG/2 ML VIAL IV PRN (06:30)
[2019-05-03] MEDS ORDERED: LEVETIRACETAM 500 MG/5ML INJ IV ONE (06:46)
[2019-05-03 07:10] LABS: Hematocrit 33.3 % (36.0-46.0); Hemoglobin 10.9 g/dL (12.2-16.2)
[2019-05-03] MEDS: SEVELAMER 800 MG TAB PO SCH ×3 (08:00→18:59)
[2019-05-03] MEDS ORDERED: NALOXONE HCL 0.4 MG/ML VIAL ONE (10:58)
[2019-05-03] MEDS ORDERED: MIDAZOLAM HCL 5 MG/ML-1ML VIAL ONE (10:59)
[2019-05-03] MEDS ORDERED: diphenhdrAMINE HCL 50 MG/1 ML VL ONE (10:59)
[2019-05-03] MEDS ORDERED: FLUMAZENIL 0.1 MG/ML INJ 10ML MDV IV ONE (10:59)
[2019-05-03] MEDS ORDERED: fentaNYL CITRATE 100 MCG/2 ML VL ONE (10:59)
[2019-05-03] MEDS ORDERED: SODIUM CHLORIDE LOCK 10 ML ONE (10:59)
[2019-05-03] MEDS ORDERED: LIDOCAINE VISCOUS 2% 15ML UD ONE (10:59)
[2019-05-03 12:32] VITALS: BP 100/44
--- NOTE | 2019-05-03 12:38 | NUR ---
PT ADMITTED TO FLOOR FROM GI LAB VIA [facility] AND STAFF. PT HAD EGD WITH DR ROBLERO. PT REPORTS NO PAIN AT THIS TIME BUT IS CRYING. SHE REPORTS SHE WANTS TO SPEAK WITH THE DOCTOR SO SHE CAN GO HOME. PT ORIENTED TO UNIT AND CALL LIGHT. BED IN LOWEST LOCKED POSITION, SIDE RAILS UP X 2, SEIZURE PRECAUTIONS IN PLACE. BED ALARM ON. PT HAD SMALL LIGHT BROWN LIQUID STOOL WHEN TRANSFERRING FROM [facility] TO BED. PT CLEANED. PT REPORTS SHE HAD DIALYSIS SUNDAY. PT HAS FISTULA ON LEFT ARM AND RU CHEST DIALYSIS CATHETER. VITALS: T 98.0, HR 70, BP 100/44, RR 18, 02 100 ON 2 L NC.
--- NOTE | 2019-05-03 12:45 | NUR ---
DR ASHER CAME TO NURSING STATION, HE REPORTS HE HAS PATIENT. NOTIFIED PT BLOOD CULTURES ARE POSITIVE. NOTIFIED PT IS CRYING AND REPORTS SHE WANTS TO GO HOME, REQUESTED ANXIETY MEDICATION. DR ASHER REQUESTS TO CALL DR CONDE, PT JOSÉ ANTONIO MCMAHON MD. CALLED DR CONDE'S OFFICE, LEFT MESSAGE REQUESTING CONSULT. CLAIM ATTORNEY REPORTS SHE WILL PAGE DR CONDE AND NOTIFY HIM. DR ASHER UPDATED. 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 ASKED DR ASHER TO UPDATE CHART.
[2019-05-03] MEDS ORDERED: VANCOMYCIN PER PHARMACY 0 MG IV SCH (13:15)
[2019-05-03] MEDS ORDERED: VANCOMYCIN 1GM/250ML 250 ML IV ONE (14:00)
[2019-05-03] MEDS: hydrALAZINE HCL 25 MG TAB PO SCH ×2 (14:00→21:26)
[2019-05-03] MEDS: PANTOPRAZOLE 40 MG TAB PO SCH ×2 (14:32→21:26)
[2019-05-03] MEDS: LEVETIRACETAM 500 MG TAB PO SCH ×2 (14:32→21:26)
--- NOTE | 2019-05-03 14:41 | NUR ---
PT APPEARS MILDLY CONFUSED. PT KEEPS REPEATING SHE HAD DIALYSIS SUNDAY AND WANTS TO SPEAK WITH THE DOCTOR. EDUCATED PT SHE ALREADY SPOKE WITH THE DOCTOR EARLIER TODAY. PT REPORTS, "THAT WAS YESTERDAY!" PT UPSET AND CRYING AND KEEPS REPEATING SHE WANTS TO SPEAK WITH THE DOCTOR AND GO HOME. (DR ASHER SPOKE WITH PATIENT EARLIER AND EDUCATED PT SHE HAS AN INFECTION IN HER BLOOD STREAM AND NEEDS TO STAY A FEW DAYS. PT REPORTED SHE DID NOT WANT TO STAY.) Addendum: 05/03/19 at 1448 by LISBETH TRENT RN MRSA SWAB SENT.
--- NOTE | 2019-05-03 15:35 | NUR ---
PT UPSET AND REPORTS SHE HAS NOT EATEN IN 7 DAYS. MEDICAL OFFICE TECHNOLOGIST REPORTS PATIENT REFUSED HER LUNCH TRAY. OFFERED PATIENT CRACKERS AND JUICE. PT REPORTS SHE DOESN'T EAT CRACKERS AND JUICE. ASKED PATIENT WHAT SHE EATS. PT REPORTS SHE EATS BREAD. OFFERED PATIENT DINNER ROLL THAT IS STILL ON BEDSIDE TABLE IN WRAPPER. PT NOW REPORTS SHE DOESN'T EAT BREAD. NOTIFIED PATIENT DINNER WILL BE BETWEEN 5 OR 6. WILL CONTINUE TO MONITOR.
--- NOTE | 2019-05-03 15:40 | NUR ---
CALLED DR ASHER, REQUESTED ANXIETY MEDICATION AGAIN, MD REPORTS PATIENT CANNOT HAVE ANXIETY MEDICATIONS, WILL CONTINUE TO MONITOR.
[2019-05-03 17:00] VITALS: BP 142/43
--- NOTE | 2019-05-03 17:21 | NUR ---
CHECKED ON PATIENT. PT SITTING UP IN BED EATING A SANDWICH AND WATCHING T.V..
--- NOTE | 2019-05-03 20:00 | NUR ---
ASSUMED CARE, PT. AWAKE, NO C/O PAIN, PT. WITH PERIODS OF CONFUSIONS, NOT IN DISTRESS.
[2019-05-03 21:32] VITALS: BP 128/81
--- NOTE | 2019-05-04 04:30 | NUR ---
pt. refused blood draw, explained to pt. the importance of having lab. to ba drawn, still refusing, asked lab. blow mold technician to come back later.
[2019-05-04 05:00] VITALS: BP 127/71
[2019-05-04] MEDS: hydrALAZINE HCL 25 MG TAB PO SCH ×3 (05:18→21:28)
--- NOTE | 2019-05-04 07:45 | NUR ---
LABS LAB AT BEDSIDE, PATIENT REFUSING LABS TO BE DRAWN.
[2019-05-04] MEDS: SEVELAMER 800 MG TAB PO SCH ×3 (08:00→18:00)
--- NOTE | 2019-05-04 08:15 | NUR ---
ROUNDS DR Don ASHER AT BEDSIDE DISCUSSING POC WITH PATIENT. PATIENT REFUSING POC, STATING "SHE WANTS TO GO BACK TO [facility]". PATIENT EDUCATED ON IMPORTANCE OF TREATMENT. PATIENT STILL REFUSING Addendum: 05/04/19 at 0848 by YASMEEN ESCALANTE RN RN PATIENT VERBALIZED UNDERSTANDING
[2019-05-04] MEDS: PANTOPRAZOLE 40 MG TAB PO SCH ×2 (08:40→21:28)
[2019-05-04] MEDS: LEVETIRACETAM 500 MG TAB PO SCH ×2 (08:40→21:28)
--- NOTE | 2019-05-04 08:41 | NUR ---
MEDS PASS PATIENT REFUSING MORNING MEDICATIONS. PATIENT EDUCATED ON IMPORTANCE OF MORNING MEDICATIONS. PATIENT STILL REFUSING Addendum: 05/04/19 at 0847 by YASMEEN ESCALANTE RN RN PATIENT VERBALIZED UNDERSTANDING
[2019-05-04 09:00] VITALS: BP 131/71
--- NOTE | 2019-05-04 12:33 | NUR ---
PHARMACY CALL PHARMACY CALLED RE: ORDERS FOR VANCOMYCIN. PHARMACIST RECOMMENDING ZYVOX DUE TO PATIENT REFUSING LABS. WILL NOTIFY
--- NOTE | 2019-05-04 12:41 | NUR ---
PAGED PAGEShanta ASHER RE: PHARMACIST RECOMMENDING ZYVOX ANTIBIOTIC. NEW ORDERS RECEIVED/CARRIED OUT. WILL CONTINUE TO MONITOR
--- NOTE | 2019-05-04 12:44 | NUR ---
PAGE LORETTA MAC PAGED LORETTA MAC RE:PATIENT REFUSING ALL TREATMENT SPOKE WITH SAMUEL ODEN RE: PATIENTS REFUSAL OF TREATMENT AND WANTING TO RETURN BACK TO [facility]. LORETTA MAC STATED "SHE WOULD SPEAK TO PATIENT ABOUT TREATMENT"
[2019-05-04 13:00] VITALS: BP 129/84
[2019-05-04] MEDS: LINEZOLID 600MG/300ML 300 ML IV SCH (13:00)
--- NOTE | 2019-05-04 13:04 | NUR ---
MEDS PASS PATIENT REFUSING AFTERNOON MEDICATIONS. PATIENT EDUCATED ON IMPORTANCE OF AFTERNOON MEDICATIONS. PATIENT VERBALIZED UNDERSTANDING. PATIENT STILL REFUSING
--- NOTE | 2019-05-04 13:23 | NUR ---
LUNCH PATIENT REFUSING TO EAT LUNCH.
--- NOTE | 2019-05-04 18:12 | NUR ---
MEDS PASS PATIENT REFUSING DINNERTIME MEDICATIONS. PATIENT EDUCATED ON IMPORTANCE OF DINNERTIME MEDICATIONS. PATIENT VERBALIZED UNDERSTANDING. PATIENT STILL REFUSING
--- NOTE | 2019-05-04 21:29 | NUR ---
PT REFUSING Pt is refusing all 2200 medications. Explained the importance of each medication and pt continues to refuse. Pt states that she does not care care what the doctor wants now because she told him she wants to go back to [facility]. Explained to pt why that is not currently an option but she continues to refuse.
[2019-05-04 22:00] VITALS: BP 119/65
[2019-05-05] MEDS: LINEZOLID 600MG/300ML 300 ML IV SCH ×2 (00:36→13:00)
[2019-05-05 05:03] VITALS: BP 142/84
[2019-05-05] MEDS: hydrALAZINE HCL 25 MG TAB PO SCH ×2 (05:53→14:00)
[2019-05-05] MEDS ORDERED: SODIUM CHL 0.9% 1000 ML BAG XX ONE ×2 (07:00)
--- NOTE | 2019-05-05 07:40 | NUR ---
Opening Shift Note Assumed care of patient asleep. No S/S of distress/SOB or pain. Bed in low/locked position, bed rails up x2. Call light within reach. Will continue to monitor for changes Q1hr and PRN.
[2019-05-05] MEDS ORDERED: diphenhdrAMINE HCL 50 MG/1 ML VL ONE (08:12)
[2019-05-05] MEDS ORDERED: MIDAZOLAM HCL 5 MG/ML-1ML VIAL ONE (08:12)
[2019-05-05] MEDS ORDERED: fentaNYL CITRATE 100 MCG/2 ML VL ONE (08:12)
[2019-05-05] MEDS ORDERED: SODIUM CHLORIDE LOCK 10 ML ONE (08:12)
[2019-05-05] MEDS ORDERED: LIDOCAINE VISCOUS 2% 15ML UD ONE (08:12)
[2019-05-05 08:21] VITALS: BP 149/72
[2019-05-05] MEDS: LEVETIRACETAM 500 MG TAB PO SCH (08:22)
[2019-05-05] MEDS: PANTOPRAZOLE 40 MG TAB PO SCH (08:23)
[2019-05-05] MEDS: SEVELAMER 800 MG TAB PO SCH ×3 (08:23→18:00)
--- NOTE | 2019-05-05 08:50 | NUR ---
MD ROUNDS DR ASHER AT BEDSIDE DISCUSSING POC WITH PATIENT. ALL QUESTIONS/CONCERNS ANSWERED. WILL CONTINUE TO MONITOR
[2019-05-05 12:58] VITALS: BP 115/53
[2019-05-05 14:08] VITALS: BP 115/53
--- NOTE | 2019-05-05 15:28 | NUR ---
assessment Patient is a 64 year old female who is answering appropriately. 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 Per patient she will return to [facility] on discharge. Patient is on dialysis with [facility] . Patients emergency contact was Zofia wild [phone]. Patient does not want to list her since she has moved out of state. I informed patient she has a right to speak to a school social worker regarding all care. I informed patient she has a right to participate in any and all discharge planning. Patient is aware of visiting hours on the hospital floor. I informed patient she has a right to privacy. Patient does not have a POA and advanced directive. I have offered patient information on POA and advanced directives. I informed the patient the advantages and benefits of having an Advanced Directive. Patient verbalized understanding and agreed to discharge plan. Addendum: 05/05/19 at 1530 by Niesha PERAZA Amended: Links added.
--- NOTE | 2019-05-05 15:47 | NUR ---
Discharge planning per consult, patient has orders to return to [facility]. Referral faxed, placed a follow up call, spoke with Nicole and was advised that they will accept this patient back into room [address] Yeison Miles. Transportation was arranged with [facility] and they will be here to pick the patient up via gurney at approximately 7pm. Nurse Donnelly was advised of the dc plan. Addendum: 05/05/19 at 1551 by ABY SPAULDING Amended: Links added.
[2019-05-05 16:54] VITALS: BP 140/70
--- NOTE | 2019-05-05 18:35 | NUR ---
REPORT GIVEN CALLED REPORT TO MARVA AT [facility]. ALL QUESTIONS/CONCERNS ANSWERED.
--- NOTE | 2019-05-05 19:07 | NUR ---
Discharge instructions given as ordered. All questions and concerns addressed. Patient verbalized understanding. IV removed with catheter intact, pressure dressing applied. Telemetry unit returned to ICU. Report given to at MARVA @ [facility]. Patient transported by [facility] with all personal belongings. No distress noted at time of departure.
== END 2019-05-05 19:07 | DRG 871 ==
LOC: EDBD 17:14 → ER 17:14 → TELE 17:15 → TELE-EAST 05-03 12:13 → UNDODISIN 05-05 19:13
PROVIDERS: ADMIT Nurse Practitioner; ATTEND Family Medicine
PROC: 0DB68ZX Excision of Stomach, Via Natural or Artificial Opening Endoscopic, Diagnostic (ICD-10-PCS; principal; 2019-05-03 11:21)
PROC: 5A1D70Z Performance of Urinary Filtration, Intermittent, Less than 6 Hours Per Day (ICD-10-PCS; 2019-05-05)
DX: A41.9 Sepsis, unspecified organism (principal); N18.6 End stage renal disease; K29.71 Gastritis, unspecified, with bleeding; G40.89 Other seizures; I12.0 Hypertensive chronic kidney disease with stage 5 chronic kidney disease or end stage renal disease; D62 Acute posthemorrhagic anemia; I31.3 Pericardial effusion (noninflammatory); N32.9 Bladder disorder, unspecified; K44.9 Diaphragmatic hernia without obstruction or gangrene; K57.30 Diverticulosis of large intestine without perforation or abscess without bleeding; E11.22 Type 2 diabetes mellitus with diabetic chronic kidney disease; F32.9 Major depressive disorder, single episode, unspecified; K21.0 Gastro-esophageal reflux disease with esophagitis; D63.8 Anemia in other chronic diseases classified elsewhere; Z99.2 Dependence on renal dialysis; Z86.73 Personal history of transient ischemic attack (TIA), and cerebral infarction without residual deficits; Z95.0 Presence of cardiac pacemaker; Z88.6 Allergy status to analgesic agent; Z88.5 Allergy status to narcotic agent; Z88.7 Allergy status to serum and vaccine; Z83.3 Family history of diabetes mellitus; Z79.899 Other long term (current) drug therapy
CPT/HCPCS: 36415; 43239; 70450; 71045; 74176; 80053; 82150; 82962; 83605; 83690; 83735; 84484; 85007; 85014; 85018; 85025; 85027; 85610; 85730; 86850; 86900; 86901; 87040; 87081; 90935; 93005; 96365; 96375; G0378; J1642; J2250; J2405; J7060

== ENCOUNTER 2019-11-25 06:34 | Inpatient (IN) | payer MEDICARE, MEDICAID ==
[~2019-11-25] VITALS: Ht 165.1 cm; Wt 69.5 kg
[2019-11-25] MEDS ORDERED: SODIUM CHLORIDE 0.9% 1,000 ML IV ONE ×2 (07:00)
[2019-11-25 07:11] LABS: Basophils # (auto) 0 10 ^3/uL (0-0.2); Basophils % (auto) 0.9 % (0.0-2.0); Eosinophils # (auto) 0.1 10 ^3/uL (0-0.8); Eosinophils % (auto) 2.1 % (0.0-7.0); Hematocrit 34.6 % (36.0-46.0); Hemoglobin 11.3 g/dL (12.2-16.2); Lymphocytes # (auto) 1.1 10 ^3/uL (0.4-5.4); Lymphocytes % (auto) 23.1 % (10.0-50.0); Mean Corpuscular Hemoglobin 29.3 pg (28.0-32.0); Mean Corpuscular Hgb Conc. 32.5 g/dL (32.0-36.0); Mean Corpuscular Volume 90.1 fL (80.0-100.0); Monocytes # (auto) 0.5 10 ^3/uL (0-1.3); Monocytes % (auto) 9.5 % (0.0-12.0); Neutrophils # (auto) 3.2 10 ^3/uL (1.6-8.6); Neutrophils % (auto) 64.4 % (37.0-80.0); Nucleated Red Blood Cells % 0.1 %; Platelet Count (auto) 144 10^3/uL (140-450); Red Blood Cells 3.84 10^6/uL (4.0-5.20); Red Cell Distribution Width 17.1 % (11.8-14.3)
[2019-11-25 07:32] LABS: Alanine Aminotransferase 14 U/L (13-56); Albumin 3.1 g/dL (3.4-5.0); Anion Gap 7 (5-15); Aspartate Aminotransferase 18 U/L (15-37); Blood Urea Nitrogen 25 mg/dL (7-18); Calcium 9.4 mg/dL (8.5-10.1); Carbon Dioxide 33 mmol/L (21-32); Chloride 98 mmol/L (98-107); GFR African American 9 mL/min; GFR Non-African American 7 mL/min; Glucose 89 mg/dL (74-106); Magnesium 2.3 mg/dL (1.6-2.6); Sodium 138 mmol/L (136-145)
[2019-11-25 07:37] LABS: Alkaline Phosphatase 262 U/L (45-117); Bilirubin, Total 0.5 mg/dL (0.2-1.0); Total Protein 8.4 g/dL (6.4-8.2)
[2019-11-25 07:40] LABS: INR 1.13 (0.9-1.15); Partial Thromboplastin Time 48.4 sec (23.64-32.05)
[2019-11-25] MEDS ORDERED: NITROGLYCERIN 0.4 MG SL TAB SL PRN (09:15)
[2019-11-25] MEDS ORDERED: HYDROcodone-ACET 5/325MG TAB PO PRN (09:15)
[2019-11-25] MEDS ORDERED: DEXTROSE (50%) 50ML SYRG IV PRN (09:15)
[2019-11-25] MEDS ORDERED: LORazepam 2MG/ML-1ML VIAL IV PRN (09:15)
[2019-11-25] MEDS ORDERED: ACETAMINOPHEN 500 MG TAB PO PRN (09:15)
[2019-11-25] MEDS ORDERED: MORPHINE SULF INJ 2 MG/ML SYRINGE 1ML IV PRN ×2 (09:15)
[2019-11-25] MEDS: GABAPENTIN 100 MG CAP PO SCH ×2 (09:35→22:19)
[2019-11-25] MEDS ORDERED: FAMOTIDINE 20 MG TAB PO SCH (10:00)
[2019-11-25] MEDS ORDERED: levETIRAcetam 500 MG TAB PO SCH (10:00)
[2019-11-25] MEDS ORDERED: amLODIPine BESYLATE 5 MG TAB PO SCH (10:00)
[2019-11-25] MEDS ORDERED: ASPirin-EC 81 mg tab PO SCH (10:00)
[2019-11-25 11:00] VITALS: BP 113/53
[2019-11-25] MEDS: InsuLIN REG 1unit/0.01ml Soln (100units/ml) SC SCH ×3 (11:30→22:00)
[2019-11-25] MEDS: ACCU-CHEK COMFORT CURVE STRIP VI SCH ×3 (11:30→22:26)
[2019-11-25] MEDS ORDERED: LABETALOL HCL 5 MG/ML 4ML SYRINGE IV PRN (11:45)
[2019-11-25 12:45] VITALS: BP 113/53
[2019-11-25] MEDS ORDERED: hydrALAZINE HCL 25 MG TAB PO SCH (14:00)
[2019-11-25 16:51] VITALS: BP 93/53
[2019-11-25] MEDS: PANTOPRAZOLE 40 MG/10 ML VIAL INJ IV SCH (17:06)
[2019-11-25] MEDS: levETIRAcetam 500 MG TAB PO SCH (22:19)
[2019-11-25] MEDS: ONDANSETRON HCL 4 MG/2 ML VIAL IV PRN (22:20)
[2019-11-26 05:00] VITALS: BP 134/64
[2019-11-26] MEDS: ONDANSETRON HCL 4 MG/2 ML VIAL IV PRN (05:10)
[2019-11-26] MEDS ORDERED: SODIUM CHL 0.9% 1000 ML BAG XX ONE (06:15)
[2019-11-26] MEDS: InsuLIN REG 1unit/0.01ml Soln (100units/ml) SC SCH ×4 (06:38→22:00)
[2019-11-26] MEDS: ACCU-CHEK COMFORT CURVE STRIP VI SCH ×4 (06:38→22:01)
[2019-11-26 08:00] VITALS: BP 146/47
[2019-11-26 09:22] VITALS: BP 146/47
[2019-11-26] MEDS: levETIRAcetam 500 MG TAB PO SCH ×2 (09:47→22:01)
[2019-11-26] MEDS: GABAPENTIN 100 MG CAP PO SCH ×2 (09:48→22:01)
[2019-11-26] MEDS: PANTOPRAZOLE 40 MG/10 ML VIAL INJ IV SCH (09:48)
[2019-11-26 11:20] LABS: Basophils # (auto) 0 10 ^3/uL (0-0.2); Basophils % (auto) 0.8 % (0.0-2.0); Eosinophils # (auto) 0.1 10 ^3/uL (0-0.8); Eosinophils % (auto) 1.7 % (0.0-7.0); Hematocrit 35.5 % (36.0-46.0); Hemoglobin 11.2 g/dL (12.2-16.2); Mean Corpuscular Hemoglobin 28.7 pg (28.0-32.0); Mean Corpuscular Hgb Conc. 31.4 g/dL (32.0-36.0); Mean Corpuscular Volume 91.4 fL (80.0-100.0); Monocytes # (auto) 0.6 10 ^3/uL (0-1.3); Monocytes % (auto) 12.6 % (0.0-12.0); Neutrophils # (auto) 3.1 10 ^3/uL (1.6-8.6); Neutrophils % (auto) 63.9 % (37.0-80.0); Nucleated Red Blood Cells % 0.1 %; Platelet Count (auto) 149 10^3/uL (140-450); Red Blood Cells 3.89 10^6/uL (4.0-5.20); Red Cell Distribution Width 17.1 % (11.8-14.3); White Blood Cell 4.8 10^3/uL (4.4-10.8)
[2019-11-26 11:39] LABS: BUN/Creatinine Ratio 3.5; Calcium 9.6 mg/dL (8.5-10.1); Potassium 4.2 mmol/L (3.5-5.1)
[2019-11-26 13:00] VITALS: BP 107/76
[2019-11-26 17:02] VITALS: BP 134/70
[2019-11-26 21:47] VITALS: BP 135/73
[2019-11-27 05:00] VITALS: BP 105/60
[2019-11-27] MEDS: ACCU-CHEK COMFORT CURVE STRIP VI SCH ×3 (06:40→17:00)
[2019-11-27] MEDS: InsuLIN REG 1unit/0.01ml Soln (100units/ml) SC SCH ×3 (06:40→17:00)
[2019-11-27 08:32] VITALS: BP 130/81
[2019-11-27] MEDS: PANTOPRAZOLE 40 MG/10 ML VIAL INJ IV SCH (09:07)
[2019-11-27] MEDS: levETIRAcetam 500 MG TAB PO SCH (09:07)
[2019-11-27] MEDS: GABAPENTIN 100 MG CAP PO SCH (09:07)
[2019-11-27 11:13] VITALS: BP 130/81
[2019-11-27 13:00] VITALS: BP 123/53
== END 2019-11-27 17:37 | DRG 100 ==
LOC: ER 06:34 → EDBD 06:34 → TELE 06:35 → TELE-CENTR 10:36
PROVIDERS: ADMIT Nurse Practitioner Acute Care; ATTEND Internal Medicine
PROC: 5A1D70Z Performance of Urinary Filtration, Intermittent, Less than 6 Hours Per Day (ICD-10-PCS; principal; 2019-11-26)
DX: G40.909 Epilepsy, unspecified, not intractable, without status epilepticus (principal); N18.6 End stage renal disease; E44.1 Mild protein-calorie malnutrition; I13.2 Hypertensive heart and chronic kidney disease with heart failure and with stage 5 chronic kidney disease, or end stage renal disease; I50.32 Chronic diastolic (congestive) heart failure; E11.22 Type 2 diabetes mellitus with diabetic chronic kidney disease; Z66 Do not resuscitate; E11.51 Type 2 diabetes mellitus with diabetic peripheral angiopathy without gangrene; D63.1 Anemia in chronic kidney disease; F03.90 Unspecified dementia, unspecified severity, without behavioral disturbance, psychotic disturbance, mood disturbance, and anxiety; Z99.2 Dependence on renal dialysis; Z86.73 Personal history of transient ischemic attack (TIA), and cerebral infarction without residual deficits; Z79.84 Long term (current) use of oral hypoglycemic drugs; Z83.3 Family history of diabetes mellitus; Z88.6 Allergy status to analgesic agent; Z88.5 Allergy status to narcotic agent
CPT/HCPCS: 36415; 70450; 71045; 80048; 80053; 82962; 83036; 83735; 84484; 85025; 85610; 85730; 87081; 93005; C9113; G0378; J1642; J2405; J7060

== ENCOUNTER 2020-01-31 04:58 | Inpatient (IN) | payer MEDICARE, MEDICAID ==
[~2020-01-31] VITALS: Ht 165.1 cm; Wt 69.1 kg
[~2020-01-31 04:58] MED LIST changes: -ASP81EC PO; +ASPI-394 PO
[2020-01-31] MEDS ORDERED: ACCU-CHEK COMFORT CURVE STRIP VI ONE (05:30)
[2020-01-31 06:30] LABS: Basophils # (auto) 0 10 ^3/uL (0-0.2); Basophils % (auto) 0.8 % (0.0-2.0); Eosinophils # (auto) 0.1 10 ^3/uL (0-0.8); Eosinophils % (auto) 2.3 % (0.0-7.0); Hematocrit 33.2 % (36.0-46.0); Hemoglobin 10.7 g/dL (12.2-16.2); Lymphocytes # (auto) 1.7 10 ^3/uL (0.4-5.4); Lymphocytes % (auto) 27.7 % (10.0-50.0); Mean Corpuscular Hemoglobin 29.5 pg (28.0-32.0); Mean Corpuscular Hgb Conc. 32.1 g/dL (32.0-36.0); Mean Corpuscular Volume 91.9 fL (80.0-100.0); Monocytes # (auto) 0.7 10 ^3/uL (0-1.3); Monocytes % (auto) 12.3 % (0.0-12.0); Neutrophils # (auto) 3.5 10 ^3/uL (1.6-8.6); Neutrophils % (auto) 56.9 % (37.0-80.0); Nucleated Red Blood Cells % 0.1 %; Platelet Count (auto) 138 10^3/uL (140-450); Red Blood Cells 3.62 10^6/uL (4.0-5.20); Red Cell Distribution Width 19.1 % (11.8-14.3); White Blood Cell 6.1 10^3/uL (4.4-10.8)
[2020-01-31 06:46] LABS: INR 1.09 (0.9-1.15); Partial Thromboplastin Time 32.9 sec (23.64-32.05)
[2020-01-31 06:52] LABS: Calcium 9.3 mg/dL (8.5-10.1); Potassium 3.2 mmol/L (3.5-5.1)
[2020-01-31 07:00] LABS: Albumin 3.1 g/dL (3.4-5.0); BUN/Creatinine Ratio 3.9; Bilirubin, Total 0.5 mg/dL (0.2-1.0); Total Protein 8.1 g/dL (6.4-8.2)
[2020-01-31] MEDS ORDERED: PANT40T (09:44)
[2020-01-31] MEDS ORDERED: SUCR1TAB (09:44)
[2020-01-31] MEDS ORDERED: LEVE500T3 (09:44)
[2020-01-31] MEDS ORDERED: SEVE800T8 (09:44)
[2020-01-31] MEDS ORDERED: FUROSEMIDE 40 MG/4 ML VIAL IV ONE (12:45)
[2020-01-31] MEDS ORDERED: DOCUSATE SOD 100 MG CAP PO PRN (13:45)
[2020-01-31] MEDS ORDERED: NITROGLYCERIN 0.4 MG SL TAB SL PRN (13:45)
[2020-01-31] MEDS ORDERED: HYDROcodone-ACET 5/325MG TAB PO PRN (13:45)
[2020-01-31] MEDS ORDERED: ALUM & MAG HYDROX-SIMETH LIQ(MAALOX) 30 ML PO PRN (13:45)
[2020-01-31] MEDS ORDERED: ONDANSETRON HCL 4 MG/2 ML VIAL IV PRN (13:45)
[2020-01-31] MEDS ORDERED: LORazepam 0.5 MG TAB PO PRN (13:45)
[2020-01-31] MEDS ORDERED: MORPHINE SULF INJ 2 MG/ML SYRINGE 1ML IV PRN ×2 (13:45)
[2020-01-31] MEDS ORDERED: hydrALAZINE HCL 20 MG/ML VL IV PRN (13:45)
[2020-01-31] MEDS: hydrALAZINE HCL 25 MG TAB PO SCH ×2 (14:00→22:00)
[2020-01-31] MEDS ORDERED: POTASSIUM EFFERVESENT TAB 25 MEQ PO ONE (14:15)
[2020-01-31 14:44] LABS: Cholesterol 134 mg/dL (< 200); HDL Cholesterol 73 mg/dL (40-59); LDL Cholesterol 43 mg/dL (< 100); Triglycerides 97 mg/dL (< 150)
[2020-01-31] MEDS ORDERED: LORazepam 2MG/ML-1ML VIAL IV PRN (16:30)
[2020-01-31] MEDS: SUCRALFATE 1 GM TAB PO SCH ×2 (17:00→22:10)
--- NOTE | 2020-01-31 18:02 | NUR ---
Telemetry admit from ER MIGUEL OLIVARES admitted to Telemetry unit after SBAR received. Patient oriented to WENDI SOTORN primary RN, unit, room 239, bed, and unit policies regarding patient care and visiting hours. Patient now on continuous telemetry monitoring, tele box #6 and telemetry reading on arrival to unit is SR70. Patient placed on bedside oxygen, weighed by bedscale and encouraged to call if they need something. All questions and concerns addressed, patient verbalized understanding. Note:
[2020-01-31 18:56] VITALS: BP 134/63
--- NOTE | 2020-01-31 19:25 | NUR ---
Opening note Assumed care of patient. Patient alert and orientated x2. only to self and time. poc reviewed. Bed locked in lowest position.Side rails up x2. Call light within reach. Will continue to monitor.
[2020-01-31 20:05] LABS: Basophils # (auto) 0.1 10 ^3/uL (0-0.2); Basophils % (auto) 1.6 % (0.0-2.0); Eosinophils # (auto) 0.1 10 ^3/uL (0-0.8); Eosinophils % (auto) 1.8 % (0.0-7.0); Hematocrit 37.4 % (36.0-46.0); Hemoglobin 11.5 g/dL (12.2-16.2); Lymphocytes # (auto) 1.3 10 ^3/uL (0.4-5.4); Lymphocytes % (auto) 30.2 % (10.0-50.0); Mean Corpuscular Hgb Conc. 30.8 g/dL (32.0-36.0); Mean Corpuscular Volume 94.4 fL (80.0-100.0); Monocytes # (auto) 0.4 10 ^3/uL (0-1.3); Monocytes % (auto) 9.3 % (0.0-12.0); Neutrophils # (auto) 2.5 10 ^3/uL (1.6-8.6); Neutrophils % (auto) 57.1 % (37.0-80.0); Nucleated Red Blood Cells % 0.2 %; Red Blood Cells 3.96 10^6/uL (4.0-5.20); Red Cell Distribution Width 19.3 % (11.8-14.3); White Blood Cell 4.4 10^3/uL (4.4-10.8)
[2020-01-31 20:06] LABS: Platelet Count (auto) 102 10^3/uL (140-450)
[2020-01-31] MEDS ORDERED: levETIRAcetam 500 MG/5ML INJ IV ONE (22:00)
[2020-01-31] MEDS: PIPERACILLIN-TAZOB 2.25GM 50 ML IV SCH (22:10)
[2020-01-31 22:17] VITALS: BP 119/76
--- NOTE | 2020-01-31 22:40 | NUR ---
Closing note Patient is covid negative. Patient alert and orientated x2. Transferred to RN Kim. after giving sbar report. Patient is going to room 222-B. ALL Belongings with patient. Patient transferred on wheelchair.
--- NOTE | 2020-01-31 22:50 | NUR ---
Transfer from covid unit, negative fo covid, per wheelchair,very weak weight,transfer in the bed by 2 person, vital signs checked.
[2020-02-01] VITALS: BP 150/81
[2020-02-01 05:00] VITALS: BP 104/50
[2020-02-01] MEDS: hydrALAZINE HCL 25 MG TAB PO SCH ×3 (06:00→21:52)
[2020-02-01] MEDS: SUCRALFATE 1 GM TAB PO SCH ×5 (06:27→21:21)
--- NOTE | 2020-02-01 07:34 | NUR ---
Report given to Guy Sanchez, patient is resting no respiratory distress, resistive to care.
[2020-02-01 09:00] VITALS: BP 130/78
[2020-02-01] MEDS: PIPERACILLIN-TAZOB 2.25GM 50 ML IV SCH ×2 (10:59→21:20)
[2020-02-01] MEDS: ENOXAPARIN SOD 30 MG/0.3 ML SYRINGE SC SCH (11:00)
[2020-02-01] MEDS: ASPirin-EC 81 mg tab PO SCH (11:00)
[2020-02-01] MEDS: PANTOPRAZOLE 40 MG TAB PO SCH (11:00)
--- NOTE | 2020-02-01 11:03 | NUR ---
Ondina is being sent for patient by pharmacy
[2020-02-01 13:00] VITALS: BP 129/50
[2020-02-01 15:19] LABS: Basophils # (auto) 0 10 ^3/uL (0-0.2); Eosinophils # (auto) 0.1 10 ^3/uL (0-0.8); Hematocrit 31.5 % (36.0-46.0); Hemoglobin 10.1 g/dL (12.2-16.2); Lymphocytes # (auto) 1.2 10 ^3/uL (0.4-5.4); Mean Corpuscular Hemoglobin 29.6 pg (28.0-32.0); Mean Corpuscular Hgb Conc. 31.9 g/dL (32.0-36.0); Mean Corpuscular Volume 92.8 fL (80.0-100.0); Monocytes # (auto) 0.5 10 ^3/uL (0-1.3); Monocytes % (auto) 11.2 % (0.0-12.0); Neutrophils # (auto) 2.8 10 ^3/uL (1.6-8.6); Neutrophils % (auto) 59.8 % (37.0-80.0); Platelet Count (auto) 125 10^3/uL (140-450); Red Blood Cells 3.39 10^6/uL (4.0-5.20); Red Cell Distribution Width 18.6 % (11.8-14.3); White Blood Cell 4.7 10^3/uL (4.4-10.8)
[2020-02-01 15:35] LABS: INR 1.09 (0.9-1.15); Partial Thromboplastin Time 31.8 sec (23.64-32.05)
[2020-02-01 15:47] LABS: Albumin 2.8 g/dL (3.4-5.0); Calcium 8.9 mg/dL (8.5-10.1); Potassium 3.8 mmol/L (3.5-5.1)
[2020-02-01 15:51] LABS: BUN/Creatinine Ratio 4.5; Bilirubin, Total 0.5 mg/dL (0.2-1.0); Magnesium 2.6 mg/dL (1.6-2.6); Phosphorus 3.5 mg/dL (2.5-4.90); Total Protein 7.5 g/dL (6.4-8.2)
--- NOTE | 2020-02-01 16:34 | NUR ---
PATIENT REFUSED CARAFATE STATES "IM NOT TAKING THAT STUFF".
[2020-02-01 17:00] VITALS: BP 128/62
--- NOTE | 2020-02-01 17:57 | NUR ---
applied lotion/barrier cream to patient for dry itchy skin.
--- NOTE | 2020-02-01 20:05 | NUR ---
Opening Shift Note Assumed care of patient, awake and alert. No S/S of distress/SOB or pain. Instructed on POC and to call for assist PRN, will continue to monitor for changes Q1hr and PRN.
--- NOTE | 2020-02-02 01:15 | NUR ---
Noted that the patient is shaking her head eyes open but looks like blank, non responsive to verbal stimuli ,vital signs checked 126/110,98% oxygen saturation,tele monitor asked the reading its SR 80, blood sugar checked its 95, and at 0117 given Ativan 1mg.i.v.p for seizure,
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
[2020-02-02 02:10] VITALS: BP 125/58
[2020-02-02 05:57] VITALS: BP 106/70
[2020-02-02] MEDS: hydrALAZINE HCL 25 MG TAB PO SCH ×3 (05:57→21:35)
[2020-02-02] MEDS: SUCRALFATE 1 GM TAB PO SCH ×4 (05:59→21:41)
[2020-02-02 07:08] LABS: Basophils # (auto) 0.1 10 ^3/uL (0-0.2); Basophils % (auto) 0.9 % (0.0-2.0); Eosinophils # (auto) 0.2 10 ^3/uL (0-0.8); Eosinophils % (auto) 3.6 % (0.0-7.0); Hematocrit 34.5 % (36.0-46.0); Hemoglobin 10.6 g/dL (12.2-16.2); Lymphocytes # (auto) 1.6 10 ^3/uL (0.4-5.4); Lymphocytes % (auto) 24.6 % (10.0-50.0); Mean Corpuscular Hemoglobin 29.6 pg (28.0-32.0); Mean Corpuscular Hgb Conc. 30.6 g/dL (32.0-36.0); Mean Corpuscular Volume 96.7 fL (80.0-100.0); Monocytes # (auto) 0.8 10 ^3/uL (0-1.3); Monocytes % (auto) 11.8 % (0.0-12.0); Neutrophils # (auto) 3.9 10 ^3/uL (1.6-8.6); Neutrophils % (auto) 59.1 % (37.0-80.0); Nucleated Red Blood Cells % 0.4 %; Platelet Count (auto) 130 10^3/uL (140-450); Red Blood Cells 3.57 10^6/uL (4.0-5.20); Red Cell Distribution Width 18.6 % (11.8-14.3); White Blood Cell 6.6 10^3/uL (4.4-10.8)
--- NOTE | 2020-02-02 07:25 | NUR ---
Opening Note Received report from maintenance technician 3rd shift RN. Patient is resting in bed, easy to wake by calling name. Patient is alert and oriented to self and place. Patient is on 2L NC, respirations even and unlabored. Patient denies pain at this time. Seizure precautions in place. Bed in low and locked position, call light within reach. Will continue to monitor Q1 hour and PRN.
[2020-02-02 07:30] LABS: Potassium 4.3 mmol/L (3.5-5.1)
[2020-02-02 07:36] LABS: BUN/Creatinine Ratio 4.8; Calcium 9.3 mg/dL (8.5-10.1)
[2020-02-02 09:00] VITALS: BP_SYST 113; BP_SYST 120; BP_DIAS 55; BP_DIAS 56
[2020-02-02] MEDS: PANTOPRAZOLE 40 MG TAB PO SCH (09:45)
[2020-02-02] MEDS: ENOXAPARIN SOD 30 MG/0.3 ML SYRINGE SC SCH (09:45)
[2020-02-02] MEDS: ASPirin-EC 81 mg tab PO SCH (09:45)
[2020-02-02] MEDS: PIPERACILLIN-TAZOB 2.25GM 50 ML IV SCH ×2 (09:46→22:12)
[2020-02-02 13:00] VITALS: BP 119/60
--- NOTE | 2020-02-02 14:15 | NUR ---
ELECTROENCEPHALOGRAM PT REFUSED EEG AT THIS TIME. STATES SHE IS SEVERELY ITCHY AND WILL NOT HOLD STILL FOR EXAM. DR. SIDHU AND RN CHRISTIANO NOTIFIED.
--- NOTE | 2020-02-02 14:25 | NUR ---
Dr. Pack at bedside Discussing plan of care with patient and this RN. Will continue to monitor Q1 hour and PRN.
--- NOTE | 2020-02-02 14:31 | NUR ---
Unable to complete EEG Per tech they were unable to complete EEG on the patient at this time.
--- NOTE | 2020-02-02 14:45 | NUR ---
Call from Dr. Sahni Patient on schedule for dialysis tomorrow. Patient updated on plan of care. Will continue to monitor Q1 hour and PRN.
[2020-02-02 17:00] VITALS: BP 139/64
--- NOTE | 2020-02-02 19:20 | NUR ---
Closing Note Report given to maintenance supervisor 2nd shift RN. No signs or symptoms of distress noted at this time.
[2020-02-02 22:00] VITALS: BP 106/67
[2020-02-02] MEDS ORDERED: CALCIUM CARB 500 MG CHEW TAB PO ONE (23:15)
[2020-02-03 05:00] VITALS: BP 104/59
[2020-02-03] MEDS: SUCRALFATE 1 GM TAB PO SCH ×4 (05:09→21:43)
[2020-02-03] MEDS: hydrALAZINE HCL 25 MG TAB PO SCH ×3 (05:49→22:00)
[2020-02-03] MEDS ORDERED: SODIUM CHL 0.9% 1000 ML BAG XX ONE (09:00)
[2020-02-03 09:21] VITALS: BP 101/65
--- NOTE | 2020-02-03 10:00 | NUR ---
IV medications held due to Pt starting Hemodialysis, as per HD nurse to be given after dialysis.
[2020-02-03] MEDS: ASPirin-EC 81 mg tab PO SCH (10:39)
[2020-02-03] MEDS: PANTOPRAZOLE 40 MG TAB PO SCH (10:39)
[2020-02-03] MEDS: ENOXAPARIN SOD 30 MG/0.3 ML SYRINGE SC SCH (10:39)
--- NOTE | 2020-02-03 10:40 | NUR ---
Called EEG department, spoke to tech to inquire on pt's order for EEG, as per hazmat technician, pt refused yesterday, pt stated that she does not need a brain test, tech also stated that Dr. Dubon /neuro was informed, Dr. Pack informed.
--- NOTE | 2020-02-03 10:40 | NUR ---
Dr. Pack at bed side to see pt,
[2020-02-03] MEDS ORDERED: diphenhdrAMINE HCL 25 MG CAP PO PRN (10:45)
[2020-02-03] MEDS ORDERED: CALCIUM CARB 500 MG CHEW TAB PO PRN (10:45)
[2020-02-03 12:12] LABS: Basophils # (auto) 0 10 ^3/uL (0-0.2); Basophils % (auto) 0.3 % (0.0-2.0); Eosinophils # (auto) 0.3 10 ^3/uL (0-0.8); Eosinophils % (auto) 5.2 % (0.0-7.0); Hematocrit 30.6 % (36.0-46.0); Hemoglobin 9.8 g/dL (12.2-16.2); Lymphocytes # (auto) 0.7 10 ^3/uL (0.4-5.4); Lymphocytes % (auto) 12.9 % (10.0-50.0); Mean Corpuscular Hemoglobin 29.2 pg (28.0-32.0); Mean Corpuscular Hgb Conc. 32.1 g/dL (32.0-36.0); Monocytes # (auto) 0.3 10 ^3/uL (0-1.3); Monocytes % (auto) 6.8 % (0.0-12.0); Neutrophils # (auto) 3.8 10 ^3/uL (1.6-8.6); Neutrophils % (auto) 74.8 % (37.0-80.0); Platelet Count (auto) 119 10^3/uL (140-450); Red Blood Cells 3.36 10^6/uL (4.0-5.20); Red Cell Distribution Width 18.1 % (11.8-14.3); White Blood Cell 5.1 10^3/uL (4.4-10.8)
[2020-02-03 12:21] VITALS: BP 114/62
[2020-02-03 12:27] LABS: BUN/Creatinine Ratio 4.4; Calcium 8.6 mg/dL (8.5-10.1); Potassium 3.4 mmol/L (3.5-5.1)
--- NOTE | 2020-02-03 14:00 | NUR ---
Attempted to turn pt and reposition, pt refused to turn at this time, pt stated that she can turn by herself.
--- NOTE | 2020-02-03 14:13 | NUR ---
Est energy needs 1259-5518 kcal (25-30 kcal/kg BW 692.kg) Est protein needs 69-90g (1-1.3g/kg BW 69.2kg ESRD, HD ) will reassess prn Addendum: 02/03/20 at [address] Amended: Links added.
--- NOTE | 2020-02-03 14:30 | NUR ---
Received a call from [facility] regarding floor representative to inform me that pt will be back to room 96 and that she will arrange for transportation.
[2020-02-03] MEDS: PIPERACILLIN-TAZOB 2.25GM 50 ML IV SCH ×2 (14:43→21:44)
--- NOTE | 2020-02-03 15:07 | NUR ---
Called pt's sister/ Louise Macedo at [phone] to inform that pt will be transfer back to [facility] today, no answer and unable to leave a message.
--- NOTE | 2020-02-03 15:45 | NUR ---
assessment Patient is a 64-year old female who is alert and oriented. Prior to admission patient was a long-term at [facility]. Patient is on dialysis with [facility] MWF. Patient will return to [facility] on discharge. consult for patient to return to [facility] has been sent to [facility]. Per Nicole patient will go back to room 9a and Dr Juan Miles will follow. [employer] will transport patient to [facility] at 1015pm tonight. JACKIE Hutson has been notified as well as Jami charge nurse. Informed patient she has the right to participate in all discharge planning. Patient verbalized understanding and agrees to discharge plan back to [facility]. Addendum: 02/03/20 at 1550 by Niesha PERAZA Amended: Links added.
[2020-02-03 15:47] VITALS: BP 114/62
--- NOTE | 2020-02-03 16:00 | NUR ---
Called [facility] [phone] spoke to JACKIE De Jesus and gave report. 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
--- NOTE | 2020-02-03 16:26 | NUR ---
Discharge instructions given as ordered. Encourage to follow up with PMD as instructed. All questions and concerns addressed. Patient verbalized understanding. Medication reconciliation form completed and copy given to patient. No home medications held in Pharmacy, and no needed vaccines to be given. 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
[2020-02-03 16:51] VITALS: BP 106/58
--- NOTE | 2020-02-03 16:53 | NUR ---
As per Niesha Kin/ social worker assistant, time of flower picker has been changed to 2300.
--- NOTE | 2020-02-03 23:50 | NUR ---
Patient discharged Patient picked up by [facility], patient to be transported to [facility]. IV DC'd with sterile technique, catheter fully intact. Pressure dressing applied to site. Patient tolerated procedure well. Telemetry box sent to ICU. At this time patient has no s/s of distress or SOB. Discharged with aftercare instructions per MD.
[2020-02-05 09:30] LABS: Hepatitis B Surface Antibody Negative
[2020-02-05 12:41] LABS: Hepatitis B Surface Antigen Negative (Negative)
== END 2020-02-03 23:59 | DRG 100 ==
LOC: ER 04:58 → EDBD 04:58 → EDUNIT# 04:58 → TELE 04:59 → TELE-EAST 17:46 → TELE-CENTR 23:08
PROVIDERS: ADMIT Hospitalist; ATTEND Internal Medicine
PROC: 5A1D70Z Performance of Urinary Filtration, Intermittent, Less than 6 Hours Per Day (ICD-10-PCS; principal; 2020-02-03)
DX: G40.909 Epilepsy, unspecified, not intractable, without status epilepticus (principal); N18.6 End stage renal disease; J69.0 Pneumonitis due to inhalation of food and vomit; E44.0 Moderate protein-calorie malnutrition; I69.351 Hemiplegia and hemiparesis following cerebral infarction affecting right dominant side; I12.0 Hypertensive chronic kidney disease with stage 5 chronic kidney disease or end stage renal disease; D63.8 Anemia in other chronic diseases classified elsewhere; F41.9 Anxiety disorder, unspecified; E11.22 Type 2 diabetes mellitus with diabetic chronic kidney disease; E87.6 Hypokalemia; F03.90 Unspecified dementia, unspecified severity, without behavioral disturbance, psychotic disturbance, mood disturbance, and anxiety; Z20.828 Contact with and (suspected) exposure to other viral communicable diseases; K21.9 Gastro-esophageal reflux disease without esophagitis; K29.70 Gastritis, unspecified, without bleeding; Z79.82 Long term (current) use of aspirin; Z79.899 Other long term (current) drug therapy; Z82.3 Family history of stroke; Z83.3 Family history of diabetes mellitus; Z91.14 Patient's other noncompliance with medication regimen; Z95.0 Presence of cardiac pacemaker
CPT/HCPCS: 36415; 70450; 71045; 80048; 80053; 80061; 82962; 83036; 83605; 83735; 83880; 84100; 84443; 84484; 85025; 85610; 85730; 86704; 86706; 87040; 87340; 93005; 93306; 96365; G0378; J2405; J2543; J7060

== ENCOUNTER 2020-02-17 05:44 | Inpatient (IN) | payer MEDICARE, MEDICAID ==
[~2020-02-17] VITALS: Ht 157.5 cm; Wt 65.0 kg
--- NOTE | 2020-02-17 00:05 | NUR ---
Respiratory note: PT SEEN FOR SCHEDULED MED NEB TX. PT REFUSED TREATMENT AT THIS TIME, REFUSING TO WEAR AEROSOL MASK. NO DISTRESS NOTED. HR 75 18 RR 18 SP02 95% ON ROOM AIR.
[~2020-02-17 05:44] MED LIST changes: +LEVE500T3; +PANT40T PO; +SEVE800T8; +SUCR1TAB PO
[2020-02-17 08:49] LABS: Basophils # (auto) 0.1 10 ^3/uL (0-0.2); Basophils % (auto) 1.3 % (0.0-2.0); Eosinophils # (auto) 0.5 10 ^3/uL (0-0.8); Eosinophils % (auto) 9.7 % (0.0-7.0); Hematocrit 36.2 % (36.0-46.0); Hemoglobin 11.4 g/dL (12.2-16.2); Lymphocytes # (auto) 1.5 10 ^3/uL (0.4-5.4); Lymphocytes % (auto) 26.6 % (10.0-50.0); Mean Corpuscular Hemoglobin 29.8 pg (28.0-32.0); Mean Corpuscular Hgb Conc. 31.6 g/dL (32.0-36.0); Mean Corpuscular Volume 94.4 fL (80.0-100.0); Monocytes # (auto) 0.7 10 ^3/uL (0-1.3); Monocytes % (auto) 12.9 % (0.0-12.0); Neutrophils # (auto) 2.7 10 ^3/uL (1.6-8.6); Neutrophils % (auto) 49.5 % (37.0-80.0); Nucleated Red Blood Cells % 0.1 %; Platelet Count (auto) 136 10^3/uL (140-450); Red Blood Cells 3.83 10^6/uL (4.0-5.20); White Blood Cell 5.6 10^3/uL (4.4-10.8)
[2020-02-17 09:16] LABS: INR 1.07 (0.9-1.15); Partial Thromboplastin Time 34.1 sec (23.64-32.05)
[2020-02-17 09:18] LABS: Albumin 3.1 g/dL (3.4-5.0); Calcium 9.6 mg/dL (8.5-10.1); Potassium 3.6 mmol/L (3.5-5.1)
[2020-02-17 09:24] LABS: BUN/Creatinine Ratio 3.5; Bilirubin, Total 0.6 mg/dL (0.2-1.0); Total Protein 7.9 g/dL (6.4-8.2)
[2020-02-17] MEDS ORDERED: diphenhdrAMINE HCL 50 MG/1 ML VL IV ONE (13:00)
[2020-02-17] MEDS ORDERED: diphenhdrAMINE HCL 50 MG/1 ML VL ONE (13:01)
[2020-02-17] MEDS ORDERED: cefTRIAXone 1GM/50ML D5W 50 ML IV ONE (13:30)
[2020-02-17] MEDS ORDERED: NITROGLYCERIN 0.4 MG SL TAB SL PRN (13:30)
[2020-02-17] MEDS ORDERED: hydrOXYzine 25 MG TAB or CAP PO ONE (13:45)
[2020-02-17] MEDS ORDERED: cefTRIAXone SOD 1,000 MG VL ONE (14:38)
[2020-02-17] MEDS ORDERED: ACYC-166 PO (15:15)
[2020-02-17] MEDS ORDERED: ONDA-188 PO (15:15)
[2020-02-17] MEDS ORDERED: HYDR-4833 PO (15:15)
[2020-02-17] MEDS ORDERED: HYDR-2691 PO (15:15)
[2020-02-17] MEDS ORDERED: LORA0.5T20 PO (15:15)
[2020-02-17] MEDS ORDERED: ZOLPIDEM TARTRATE 5 MG TAB PO PRN (16:45)
[2020-02-17] MEDS ORDERED: ACETAMINOPHEN 500 MG TAB PO PRN (16:45)
[2020-02-17] MEDS ORDERED: LACTULOSE 20Gm/30ML SOLN PO PRN (16:45)
[2020-02-17] MEDS ORDERED: ALBUTEROL SULF 2.5 MG/0.5ML(0.5%) NEB SOLN NEB PRN (16:45)
[2020-02-17] MEDS ORDERED: LABETALOL HCL 5 MG/ML ML 20ML VIAL IV PRN (16:45)
[2020-02-17] MEDS ORDERED: DEXTROSE (50%) 50ML SYRG IV PRN (16:45)
[2020-02-17 17:14] LABS: CRP High Sensitivity 1.24 mg/dL (< 0.3)
[2020-02-17] MEDS: FUROSEMIDE 40 MG/4 ML VIAL IV SCH (17:47)
[2020-02-17] MEDS ORDERED: LORazepam 2MG/ML-1ML VIAL IV PRN (18:45)
[2020-02-17] MEDS: IPRATROPIUM BROM 0.5 MG/2.5ML INH SOL NEB SCH (19:09)
[2020-02-17] MEDS: ALBUTEROL SULF 2.5 MG/0.5ML(0.5%) NEB SOLN NEB SCH (19:09)
[2020-02-17] MEDS: ACCU-CHEK COMFORT CURVE STRIP VI SCH (20:00)
[2020-02-17] MEDS: hydrALAZINE HCL 25 MG TAB PO SCH (23:15)
[2020-02-17] MEDS ORDERED: diphenhdrAMINE HCL 25 MG CAP PO ONE (23:15)
[2020-02-17] MEDS: ATORVASTATIN 20 MG TAB PO SCH (23:16)
[2020-02-17] MEDS: levETIRAcetam 500 MG TAB PO SCH (23:16)
[2020-02-17] MEDS: cefTRIAXone 1GM/50ML D5W 50 ML IV SCH (23:36)
[2020-02-18] MEDS: LORazepam 0.5 MG TAB PO PRN (01:53)
[2020-02-18] MEDS ORDERED: hydrOXYzine HCL 10 MG TAB PO ONE (02:45)
[2020-02-18 04:03] VITALS: BP 132/54
[2020-02-18 05:00] VITALS: BP 161/81
--- NOTE | 2020-02-18 05:00 | NUR ---
PT RECEIVED ON STRETCHER FROM ED, ALERT AND ORIENTED TO SELF, CONFUSED AT TIME, ON CONTINUOUS TELE MONITOR SR, LUNGS SOUND ARE DIMINISHED, PT BREATHING IN RA, NO SOB REPORTED. PULSE TO ALL EXTREMITY INTACT, PT COMPLAINT OF ITCHING BENADRYL GIVEN IN ER, LOW BLOOD GLUCOSE REPORTED AND RESOLVED FROM ED. OLD AV GRAFT TO LEFT UPPER ARM NOTED, MID-LINE SINGLE LUMEN TO LEFT UPPER ARM. LEFT CHEST PORT A CATH FOR DIALYSIS. OLD HEALING WOUND TO LEFT BUTTOCK. CLOSE WOUND TO RIGHT WRIST. NO ACUTE DISTRESS NOTED, WILL CONTINUE MONITOR. Addendum: 02/18/20 at 0649 by SHARON SCHUSTER RN RN PT REMAIN ON FALL AND SEIZURE PRECAUTION, LEXI SEIZURE ACTIVITY NOTED AT THIS TIME.
[2020-02-18] MEDS: FUROSEMIDE 40 MG/4 ML VIAL IV SCH ×2 (06:34→17:59)
[2020-02-18] MEDS: hydrALAZINE HCL 25 MG TAB PO SCH ×3 (06:34→22:03)
--- NOTE | 2020-02-18 07:30 | NUR ---
Opening Shift Note Assumed care of patient, awake and alert. No S/S of distress/SOB or pain. Instructed on POC and to call for assist PRN, will continue to monitor for changes Q1hr and PRN. Fall precautions in place per safety protocol.
[2020-02-18] MEDS: IPRATROPIUM BROM 0.5 MG/2.5ML INH SOL NEB SCH ×4 (08:11→19:21)
[2020-02-18] MEDS: ALBUTEROL SULF 2.5 MG/0.5ML(0.5%) NEB SOLN NEB SCH ×4 (08:11→19:21)
[2020-02-18] MEDS: ACCU-CHEK COMFORT CURVE STRIP VI SCH ×6 (08:30→23:44)
[2020-02-18 09:37] LABS: Albumin 3.4 g/dL (3.4-5.0); Calcium 8.4 mg/dL (8.5-10.1); Potassium 4.3 mmol/L (3.5-5.1)
[2020-02-18 09:40] LABS: BUN/Creatinine Ratio 18.5; Bilirubin, Total 0.7 mg/dL (0.2-1.0)
[2020-02-18] MEDS: NITROGLYCERIN 0.2MG/HR TOPICAL PATCH TD SCH (10:00)
[2020-02-18] MEDS: ENALAPRIL MALEATE 2.5 MG TAB PO SCH (10:00)
[2020-02-18] MEDS: PANTOPRAZOLE 40 MG TAB PO SCH (11:19)
[2020-02-18] MEDS: ENOXAPARIN SOD 30 MG/0.3 ML SYRINGE SC SCH (11:19)
[2020-02-18] MEDS: cefTRIAXone 1GM/50ML D5W 50 ML IV SCH ×2 (11:19→22:03)
[2020-02-18] MEDS: levETIRAcetam 500 MG TAB PO SCH ×2 (11:19→22:03)
[2020-02-18] MEDS: AZITHROMYCIN 500MG/ 250ML 250 ML IV SCH (11:19)
--- NOTE | 2020-02-18 11:42 | NUR ---
WOUND CARE NOTE: Wound care in to see patient per wound care request regarding multiple skin integrity issue that are noted present on admission. Bedside nurse took photograph of patient's skin issue upon admission for reference. Patient is 64 years old female with admitting diagnosis of ALOC, Poss Seizure, Pna, HF. Patient is resting in bed in room 209A. Patient is awake, alert and oriented x2. Patient is in no stated pain at this time. She' s self turning and repositioning. Her Gilles score is 19. Skin assessment done with the assistance of patient's nurse, JACKIE High. Patient's Rt forearm noted with multiple dry intact scabs. Her L posterior thigh, ischial area has multi intact pink collagen scar tissue, are s clean and dry, left open to air. Patient is incontinent of bowel and bladder. She passed moderate amount of soft stool. Assisted JACKIE High to clean patient. Noted erythema with skin erosion to her lower buttocks, and perirectal area consistent with moisture associated skin damage. Applied Z Guard cream to patient's sacral, buttocks area. Patient tolerated well, JACKIE High at bedside. RECOMMENDATION: Nursing to continue with BID/PRN cleaning and application of Barrier cream to sacral/buttocks per MD order, redistribute pressure points with pillows, frequent rosanna care/check, keep clean and dry, elevate heels on pillows, continue monitoring by wound care while patient is hospitalized. Addendum: 02/18/20 at 1616 by Denia Mckeon RN Amended: Links added.
[2020-02-18] MEDS: diphenhdrAMINE HCL 25 MG CAP PO PRN ×2 (12:03→20:36)
[2020-02-18 13:00] VITALS: BP 136/73
[2020-02-18 17:00] VITALS: BP 121/83
--- NOTE | 2020-02-18 19:20 | NUR ---
Opening Shift Note Received report from Anila MEJIA. Assumed care of patient, awake and alert. No S/S of distress/SOB or pain. Instructed on POC and to call for assist PRN. Fall precaution measures in place, will continue to monitor for changes Q1hr and PRN.
--- NOTE | 2020-02-18 19:51 | NUR ---
1950 BS 97 no coverage needed Signed: 02/18/20 at 1952 by REYES MA SN <Co-Signature Required> Co-Signed: 02/18/20 at 1952 by Anali Price RN
[2020-02-18 21:37] VITALS: BP 118/71
[2020-02-18] MEDS ORDERED: CALCIUM CARB 500 MG CHEW TAB PO PRN (21:45)
[2020-02-18] MEDS: ATORVASTATIN 20 MG TAB PO SCH (22:03)
--- NOTE | 2020-02-18 23:42 | NUR ---
Bs 97 no coverage needed Signed: 02/18/20 at 2343 by REYES MA SN <Co-Signature Required> Co-Signed: 02/18/20 at 2343 by Anali Price RN
--- NOTE | 2020-02-19 01:26 | NUR ---
Respiratory note: PT IS REFUSING SCHED MED NEB TX AT THIS TIME. PT STATES SHE IS TIRED AND WOULD LIKE TO SLEEP. PT SHOWS NO S/S OF SOB OR RESPIRATORY DISTRESS. WILL CONTINUE TO MONITOR.
[2020-02-19] MEDS: diphenhdrAMINE HCL 25 MG CAP PO PRN ×2 (02:14→11:06)
--- NOTE | 2020-02-19 02:16 | NUR ---
Tele monitor off, went to change leads pt. was found sitting at edge of bed naked and had removed midline. Signed: 02/19/20 at 216 by REYES MA SN <Co-Signature Required> Co-Signed: 02/19/20 at 216 by Anali Price RN
[2020-02-19] MEDS: ACCU-CHEK COMFORT CURVE STRIP VI SCH ×3 (03:51→12:20)
[2020-02-19] MEDS: LORazepam 0.5 MG TAB PO PRN (03:52)
--- NOTE | 2020-02-19 03:55 | NUR ---
IV insertion IV access obtained, via clean sterile technique by inserting 24 gauge catheter at R wrist after 1 attempt(s). IV secured properly. No trauma to site. Patient tolerated well.
--- NOTE | 2020-02-19 04:01 | NUR ---
BS 72 pt. awake no coverage needed Signed: 02/19/20 at 0403 by REYES MA SN <Co-Signature Required> Co-Signed: 02/19/20 at 0403 by Anali Price RN
[2020-02-19 05:07] VITALS: BP 104/77
[2020-02-19] MEDS: FUROSEMIDE 40 MG/4 ML VIAL IV SCH (05:35)
[2020-02-19] MEDS: hydrALAZINE HCL 25 MG TAB PO SCH ×2 (05:36→14:00)
--- NOTE | 2020-02-19 05:36 | NUR ---
BP 104/77 Chelsey held pt. is due for dialysis in am. Signed: 02/19/20 at 0537 by REYES MA SN <Co-Signature Required> Co-Signed: 02/19/20 at 0537 by Anali Price RN
[2020-02-19] MEDS: ALBUTEROL SULF 2.5 MG/0.5ML(0.5%) NEB SOLN NEB SCH ×2 (07:31)
[2020-02-19] MEDS: IPRATROPIUM BROM 0.5 MG/2.5ML INH SOL NEB SCH ×2 (07:31)
[2020-02-19 09:00] VITALS: BP 130/77
[2020-02-19] MEDS: cefTRIAXone 1GM/50ML D5W 50 ML IV SCH (10:00)
[2020-02-19] MEDS: levETIRAcetam 500 MG TAB PO SCH (11:06)
[2020-02-19] MEDS: PANTOPRAZOLE 40 MG TAB PO SCH (11:06)
[2020-02-19] MEDS: ENOXAPARIN SOD 30 MG/0.3 ML SYRINGE SC SCH (11:06)
--- NOTE | 2020-02-19 11:33 | NUR ---
Assessment Patient is a 64-year old female who is alert and oriented. Prior to admission patient was a long-term patient at [facility]. Patient is on dialysis with [facility] Sunday, Sunday and Sunday. Patient will return to [facility] to her prior living arrangements post discharge and the facility will arrange transportation. Advised patient there is a Social Service to return to [facility]. Informed patient clinical information will be faxed to [facility]. Informed patient she has the right to participate in all discharge planning. Patient verbalized understanding and agrees to discharge plan. Faxed clinical information to [facility]. Per Nicole with [facility] patient will return to room 6c accepting , Dr. Yeison Miles. [facility] transportation has been arranged via [employer] with a 15:00 brass pickler time. Informed JACKIE Quintanilla. Addendum: 02/19/20 at 1141 by LILY PERAZA Amended: Links added.
--- NOTE | 2020-02-19 11:45 | NUR ---
Dialysis complete by Quincy MEJIA 2.5 liters removed
--- NOTE | 2020-02-19 12:26 | NUR ---
Dr. Galicia at bedside to secure dialysis tunnel catheter with one 3 0 Prolene suture. Patient tolerated procedure well.
[2020-02-19] MEDS: AZITHROMYCIN 500MG/ 250ML 250 ML IV SCH (12:36)
[2020-02-19] MEDS: ENALAPRIL MALEATE 2.5 MG TAB PO SCH (12:44)
[2020-02-19] MEDS: NITROGLYCERIN 0.2MG/HR TOPICAL PATCH TD SCH (12:45)
[2020-02-19 13:03] VITALS: BP 126/69
--- NOTE | 2020-02-19 15:15 | NUR ---
Ariadne at bedside to transport patient to [facility]. Attempted 3 times to notify patients next of kin-sister Louise Macedo of patients transfer by calling but there was no answering machine and no answer. Patients tele box and IV removed. Patient stable at the time of discharge with v/s WNL. Called and gave complete SBAR to Cristina at [facility], she stated she if familiar with the patient.
== END 2020-02-19 15:15 | DRG 100 ==
LOC: EDUNIT# 05:44 → EDBD 05:44 → ER 05:44 → TELE 05:45 → TELE-CENTR 02-18 05:00
PROVIDERS: ADMIT Internal Medicine; ATTEND Family Medicine
PROC: 5A1D70Z Performance of Urinary Filtration, Intermittent, Less than 6 Hours Per Day (ICD-10-PCS; principal; 2020-02-19)
DX: G40.409 Other generalized epilepsy and epileptic syndromes, not intractable, without status epilepticus (principal); N18.6 End stage renal disease; J18.9 Pneumonia, unspecified organism; I13.2 Hypertensive heart and chronic kidney disease with heart failure and with stage 5 chronic kidney disease, or end stage renal disease; I69.351 Hemiplegia and hemiparesis following cerebral infarction affecting right dominant side; E87.8 Other disorders of electrolyte and fluid balance, not elsewhere classified; I50.9 Heart failure, unspecified; D63.8 Anemia in other chronic diseases classified elsewhere; K21.9 Gastro-esophageal reflux disease without esophagitis; E11.21 Type 2 diabetes mellitus with diabetic nephropathy; E11.22 Type 2 diabetes mellitus with diabetic chronic kidney disease; F32.9 Major depressive disorder, single episode, unspecified; Z79.82 Long term (current) use of aspirin; Z99.2 Dependence on renal dialysis; I69.393 Ataxia following cerebral infarction; Z79.899 Other long term (current) drug therapy; Z82.3 Family history of stroke; Z83.3 Family history of diabetes mellitus; Z03.818 Encounter for observation for suspected exposure to other biological agents ruled out; E11.649 Type 2 diabetes mellitus with hypoglycemia without coma
CPT/HCPCS: 36415; 70450; 71045; 80053; 82550; 82962; 83036; 83880; 84443; 84484; 85025; 85610; 85652; 85730; 86141; 90935; 93005; 94640; 96365; 96375; G0378; J0696

== ENCOUNTER 2020-03-04 05:22 | Inpatient (IN) | payer MEDICARE, MEDICAID ==
[~2020-03-04] VITALS: Ht 165.1 cm; Wt 63.5 kg
[~2020-03-04 05:22] MED LIST changes: +ACYC-166 PO; +HYDR-2691 PO; +HYDR-4833 PO; +LORA0.5T20 PO; +ONDA-188 PO
[2020-03-04] MEDS ORDERED: LABETALOL HCL 5 MG/ML 4ML SYRINGE IV ONE (07:00)
[2020-03-04 07:13] LABS: Basophils # (auto) 0 10 ^3/uL (0-0.2); Basophils % (auto) 0.2 % (0.0-2.0); Eosinophils # (auto) 0.4 10 ^3/uL (0-0.8); Eosinophils % (auto) 5.6 % (0.0-7.0); Hematocrit 35.8 % (36.0-46.0); Hemoglobin 11.7 g/dL (12.2-16.2); Lymphocytes # (auto) 1.6 10 ^3/uL (0.4-5.4); Lymphocytes % (auto) 25.5 % (10.0-50.0); Mean Corpuscular Hemoglobin 30.8 pg (28.0-32.0); Mean Corpuscular Hgb Conc. 32.5 g/dL (32.0-36.0); Mean Corpuscular Volume 94.7 fL (80.0-100.0); Monocytes # (auto) 0.6 10 ^3/uL (0-1.3); Monocytes % (auto) 10.2 % (0.0-12.0); Neutrophils # (auto) 3.6 10 ^3/uL (1.6-8.6); Neutrophils % (auto) 58.5 % (37.0-80.0); Nucleated Red Blood Cells % 0.1 %; Platelet Count (auto) 87 10^3/uL (140-450); Red Blood Cells 3.78 10^6/uL (4.0-5.20); Red Cell Distribution Width 16.1 % (11.8-14.3); White Blood Cell 6.2 10^3/uL (4.4-10.8)
[2020-03-04 07:32] LABS: Potassium 4.2 mmol/L (3.5-5.1)
[2020-03-04 07:41] LABS: Albumin 3.2 g/dL (3.4-5.0); BUN/Creatinine Ratio 3.5; Bilirubin, Total 0.5 mg/dL (0.2-1.0); Calcium 9.7 mg/dL (8.5-10.1); INR 1.13 (0.9-1.15); Magnesium 2.6 mg/dL (1.6-2.6); Partial Thromboplastin Time 41.5 sec (23.0-31.2); Total Protein 8.2 g/dL (6.4-8.2)
[2020-03-04] MEDS ORDERED: NITROGLYCERIN 0.4 MG SL TAB SL PRN (09:45)
[2020-03-04] MEDS ORDERED: cefTRIAXone 1GM/50ML D5W 50 ML IV ONE (10:00)
[2020-03-04] MEDS: levETIRAcetam 500 MG TAB PO SCH ×2 (10:00→21:15)
[2020-03-04] MEDS ORDERED: ACETAMINOPHEN 500 MG TAB PO PRN (10:00)
[2020-03-04] MEDS ORDERED: traMADol HCL 50 MG TAB PO PRN (10:00)
[2020-03-04] MEDS ORDERED: DEXTROSE (50%) 50ML SYRG IV PRN (10:00)
[2020-03-04] MEDS ORDERED: LORazepam 2MG/ML-1ML VIAL IV PRN (10:00)
[2020-03-04] MEDS: FAMOTIDINE 20 MG TAB PO SCH (10:00)
[2020-03-04] MEDS: InsuLIN REG 1unit/0.01ml Soln (100units/ml) SC SCH ×3 (11:30→21:14)
[2020-03-04] MEDS: ACCU-CHEK COMFORT CURVE STRIP VI SCH ×3 (11:54→21:14)
[2020-03-04] MEDS: hydrALAZINE HCL 25 MG TAB PO SCH ×2 (14:00→22:00)
[2020-03-04] MEDS ORDERED: MIRTAZAPINE 30 MG TAB PO SCH (18:00)
[2020-03-04] MEDS: ONDANSETRON HCL 4 MG/2 ML VIAL IV PRN ×2 (18:47→21:30)
[2020-03-04] MEDS ORDERED: GABAPENTIN PO SCH (22:00)
[2020-03-05] MEDS ORDERED: PROMETHAZINE HCL 25 MG/ML 1ML IM ONE (00:45)
[2020-03-05] MEDS: hydrALAZINE HCL 25 MG TAB PO SCH ×2 (05:58→14:00)
[2020-03-05] MEDS: ACCU-CHEK COMFORT CURVE STRIP VI SCH ×3 (06:11→17:00)
[2020-03-05] MEDS: InsuLIN REG 1unit/0.01ml Soln (100units/ml) SC SCH ×3 (06:11→17:00)
[2020-03-05] MEDS ORDERED: cefTRIAXone 1GM/50ML D5W 50 ML IV SCH (09:00)
[2020-03-05] MEDS ORDERED: ASPirin 81 mg TAB PO SCH (10:00)
[2020-03-05] MEDS: FAMOTIDINE 20 MG TAB PO SCH (10:44)
[2020-03-05] MEDS: levETIRAcetam 500 MG TAB PO SCH (10:44)
[2020-03-05] MEDS ORDERED: CALCIUM CARB 500 MG CHEW TAB PO PRN (11:00)
[2020-03-05 13:09] VITALS: BP 125/50
[2020-03-06] MEDS ORDERED: SODIUM CHL 0.9% 1000 ML BAG XX ONE (07:00)
[2020-03-06] MEDS ORDERED: EPOETIN ALFA 4,000 UNIT/ML VL SC ONE (21:00)
== END 2020-03-05 17:58 | DRG 100 ==
LOC: ER 05:22 → EDSEX 05:22 → EDBD 05:22 → TELE 05:23
PROVIDERS: ADMIT Internal Medicine; ATTEND Internal Medicine
DX: G40.909 Epilepsy, unspecified, not intractable, without status epilepticus (principal); N18.6 End stage renal disease; E44.1 Mild protein-calorie malnutrition; I69.951 Hemiplegia and hemiparesis following unspecified cerebrovascular disease affecting right dominant side; I12.0 Hypertensive chronic kidney disease with stage 5 chronic kidney disease or end stage renal disease; D63.1 Anemia in chronic kidney disease; H70.91 Unspecified mastoiditis, right ear; E11.22 Type 2 diabetes mellitus with diabetic chronic kidney disease; E78.00 Pure hypercholesterolemia, unspecified; F32.9 Major depressive disorder, single episode, unspecified; K21.9 Gastro-esophageal reflux disease without esophagitis; F03.90 Unspecified dementia, unspecified severity, without behavioral disturbance, psychotic disturbance, mood disturbance, and anxiety; Z99.2 Dependence on renal dialysis; Z83.3 Family history of diabetes mellitus; Z88.6 Allergy status to analgesic agent; Z88.5 Allergy status to narcotic agent; Z88.8 Allergy status to other drugs, medicaments and biological substances; Z79.899 Other long term (current) drug therapy; Z79.82 Long term (current) use of aspirin; Z82.3 Family history of stroke; E11.21 Type 2 diabetes mellitus with diabetic nephropathy
CPT/HCPCS: 36415; 70450; 71045; 78582; 80053; 82962; 83036; 83735; 84484; 85025; 85379; 85610; 85730; G0378; J0696; J2405; J3490

== ENCOUNTER 2020-04-13 05:18 | Inpatient (IN) | payer MEDICARE, MEDICAID ==
[~2020-04-13] VITALS: Ht 160 cm; Wt 78.9 kg
[2020-04-13] VITALS (21 sets, daily range): BP systolic 87–200; BP diastolic 13–116
[~2020-04-13 05:18] MED LIST changes: -HYDR-2691 PO; -LEVE500T3
[2020-04-13 06:39] LABS: Basophils # (auto) 0 10 ^3/uL (0-0.2); Basophils % (auto) 0.6 % (0.0-2.0); Eosinophils # (auto) 0.2 10 ^3/uL (0-0.8); Eosinophils % (auto) 2.6 % (0.0-7.0); Hematocrit 26.2 % (36.0-46.0); Hemoglobin 8.6 g/dL (12.2-16.2); Lymphocytes # (auto) 1.6 10 ^3/uL (0.4-5.4); Lymphocytes % (auto) 26.6 % (10.0-50.0); Mean Corpuscular Hemoglobin 30.2 pg (28.0-32.0); Mean Corpuscular Hgb Conc. 32.7 g/dL (32.0-36.0); Mean Corpuscular Volume 92.4 fL (80.0-100.0); Monocytes # (auto) 0.7 10 ^3/uL (0-1.3); Monocytes % (auto) 11.5 % (0.0-12.0); Neutrophils # (auto) 3.5 10 ^3/uL (1.6-8.6); Neutrophils % (auto) 58.7 % (37.0-80.0); Platelet Count (auto) 100 10^3/uL (140-450); Red Blood Cells 2.83 10^6/uL (4.0-5.20); Red Cell Distribution Width 15.3 % (11.8-14.3)
[2020-04-13 07:04] LABS: INR 1.04 (0.9-1.15); Partial Thromboplastin Time 47.3 sec (23.0-31.2)
[2020-04-13 07:06] LABS: BUN/Creatinine Ratio 11.8; Bilirubin, Total 0.4 mg/dL (0.2-1.0); Calcium 10.2 mg/dL (8.5-10.1); Magnesium 2.9 mg/dL (1.6-2.6); Total Protein 7.4 g/dL (6.4-8.2)
[2020-04-13] MEDS ORDERED: MORPHINE SULF INJ 2 MG/ML SYRINGE 1ML IV PRN ×3 (10:15→12:15)
[2020-04-13] MEDS ORDERED: NITROGLYCERIN 0.4 MG SL TAB SL PRN ×2 (10:15→12:15)
[2020-04-13] MEDS ORDERED: DEXTROSE 10% 1,000 ML IV ONE (10:15)
[2020-04-13] MEDS ORDERED: LACTATED RINGER'S 1,000 ML IV ONE (11:30)
[2020-04-13] MEDS ORDERED: PANTOPRAZOLE 40 MG/10 ML VIAL INJ IV ONE (11:30)
--- NOTE | 2020-04-13 11:45 | NUR ---
Midline Placement: Patient educated on need for midline placement. All risks and benefits explained and all questions and concerns addresses prior to procedure. 18g/10 cm midline inserted via right basilic vein using Ultrasound. Sterile technique utilized. Blood return obtained from lumen and flushed easily with NS using proper technique. Midline secured with saline lock; biodisc and occlusive dressing applied. Primary RN Cheryl notified. Midline lot # [id number]
[2020-04-13 12:01] LABS: Basophils # (auto) 0 10 ^3/uL (0-0.2); Eosinophils # (auto) 0.1 10 ^3/uL (0-0.8); Lymphocytes # (auto) 1.6 10 ^3/uL (0.4-5.4); Monocytes # (auto) 0.7 10 ^3/uL (0-1.3); Red Blood Cells 2.25 10^6/uL (4.0-5.20); White Blood Cell 6.5 10^3/uL (4.4-10.8)
[2020-04-13 12:03] LABS: Basophils % (auto) 0.5 % (0.0-2.0); Eosinophils % (auto) 1.8 % (0.0-7.0); Hematocrit 20.6 % (36.0-46.0); Lymphocytes % (auto) 24.8 % (10.0-50.0); Mean Corpuscular Hemoglobin 30.2 pg (28.0-32.0); Mean Corpuscular Volume 91.5 fL (80.0-100.0); Monocytes % (auto) 10.5 % (0.0-12.0); Neutrophils % (auto) 62.4 % (37.0-80.0); Platelet Count (auto) 87 10^3/uL (140-450); Red Cell Distribution Width 15.1 % (11.8-14.3)
[2020-04-13 12:08] LABS: Hemoglobin 6.8 g/dL (12.2-16.2)
[2020-04-13] MEDS ORDERED: ALBUTEROL SULF 2.5 MG/0.5ML(0.5%) NEB SOLN NEB PRN ×2 (12:15→14:00)
[2020-04-13] MEDS ORDERED: VANCOMYCIN PER PHARMACY 0 MG IV SCH (12:15)
[2020-04-13] MEDS ORDERED: HYDROcodone-ACET 5/325MG TAB PO PRN (12:15)
[2020-04-13] MEDS ORDERED: ALUM & MAG HYDROX-SIMETH LIQ(MAALOX) 30 ML PO PRN (12:15)
[2020-04-13] MEDS ORDERED: DOCUSATE SOD 100 MG CAP PO PRN (12:15)
[2020-04-13] MEDS ORDERED: ONDANSETRON HCL 4 MG/2 ML VIAL IV PRN (12:15)
[2020-04-13] MEDS ORDERED: PIPERACILLIN-TAZOB 2.25GM 50 ML IV ONE (12:30)
[2020-04-13 12:31] LABS: Cholesterol 102 mg/dL (< 200)
[2020-04-13 12:34] LABS: HDL Cholesterol 61 mg/dL (40-59); LDL Cholesterol 28 mg/dL (< 100); Triglycerides 90 mg/dL (< 150)
[2020-04-13] MEDS ORDERED: BISA10SU52 PR (12:35)
[2020-04-13] MEDS ORDERED: ACET-6 PO (12:35)
[2020-04-13] MEDS ORDERED: ALBUAER3 IN (12:35)
[2020-04-13] MEDS ORDERED: ATOR20TA50 PO (12:35)
[2020-04-13] MEDS ORDERED: LORA1TAB23 PO (12:35)
[2020-04-13] MEDS ORDERED: NITR0.4S29 SL (12:36)
[2020-04-13] MEDS ORDERED: ENAL5TAB10 PO (12:36)
[2020-04-13] MEDS ORDERED: MAGNSUS48 PO (12:36)
[2020-04-13] MEDS ORDERED: NITR0.2D3 TD (12:36)
[2020-04-13] MEDS ORDERED: ASPI-498 PO (12:37)
--- NOTE | 2020-04-13 13:40 | NUR ---
Admit to [facility] admitted to [facility] via gurney on telemetry monitor. Patient transfered to bed, connected to unit monitoring and oxygen, and weighed by bedscale. Patient oriented to Miriam avendaño RN, unit, room, bed, and unit policies regarding patient care and visiting hours. All questions and concerns addressed, patient verbalized understanding. Patient awake and oriented x3, fatigue, follows simple commands, able to answer simple questions but unable to provide complete information including vaccination history and home medications. See interventions for complete assessment. Bed locked on low position, side rails up x2, bed alarms on at all times, call hickey within reach, instructed to call for needed assistance. Will continue to monitor.
--- NOTE | 2020-04-13 14:00 | NUR ---
Duval catheter insertion Patient assessed and determined to be in need of flexi seal. Patient educated on fllexi seal and reason for insertion. All questions answered. Flexi seal inserted by Jayden MEJIA. Patient tolerated well.
--- NOTE | 2020-04-13 14:50 | NUR ---
This RN came back from lunch, per cover maker Paul blood transfusion was completed at 1430. No transfusion reaction noted.
[2020-04-13] MEDS ORDERED: VANCOMYCIN 1GM/250ML 250 ML IV ONE (15:00)
--- NOTE | 2020-04-13 15:51 | NUR ---
Received call from Dr Romo. Updated on patient's status, verbalized understanding. Orders received. Will carry out.
--- NOTE | 2020-04-13 16:59 | NUR ---
Received call from Dr Raghavendra Aguilar, updated on patient's status, verbalized understanding. Orders received, read back and verified. Will carry out.
--- NOTE | 2020-04-13 17:15 | NUR ---
Patient's blood pressure 70's to 80's/ 40's to 50's. Paged Dr Henderson and called back, updated on patient's status. Informed of low BP, verbalized understanding. Orders received. Will carry out.
[2020-04-13] MEDS ORDERED: SODIUM CHLORIDE 0.9% 500 ML IV ONE (17:30)
[2020-04-13] MEDS: OCTREOTIDE ACETATE 500 MCG in SODIUM CHL 0.9% 99 ML IV SCH (18:07)
[2020-04-13] MEDS: NOREPINEPHRINE 8 MG/250ML KIT 250 ML IV SCH (18:30)
--- NOTE | 2020-04-13 18:51 | NUR ---
Spoke to patient's sister Aura who's listed as the next of Kin, unable to get information. Sister states "I have not seen her for a while."
[2020-04-13] MEDS ORDERED: METOPROLOL TARTRATE 1MG/1ML-5ML VIAL IV PRN (19:00)
--- NOTE | 2020-04-13 19:00 | NUR ---
Opening Shift Note Assumed care of patient, awake and alert. No S/S of distress/SOB or pain. Instructed on POC and to call for assist PRN, will continue to monitor for changes Q1hr and PRN. Patient currently receiving FFP. RN will continue to monitor and assess patient for changes in condition and for s/s of discomfort or distress.
--- NOTE | 2020-04-13 19:10 | NUR ---
Dr Aguilar at bedside, updated on patient's status. Patient seen and examined. Will carry out new orders.
--- NOTE | 2020-04-13 19:15 | NUR ---
Consents: Teaching was provided to the patient regarding EGD tomorrow. Patient was able to verbalize understanding and consented to having the procedure done. Patient is currently unable to physically provide an adequate signature d/t previous CVA, so this RN and previous day shift RN of the patient both witnessed the patient agreeing and verbalizing understanding of procedure. Patient still attempted her best to provide a signature.
--- NOTE | 2020-04-13 20:20 | NUR ---
Code assist: RN was rounding on patient. RN asked patient how is she feeling. Patient stated "fine" and then became unresponsive immediately and began to foam at the mouth. RN provided oral suctioning, provided supplemental oxygen and called a code assist. RN provided PRN ativan 1mg IVP per hospitalist orders. Patient only began to mumble words but still unresponsive. Patient was desaturating and having severe dyspnea and was intubated by hospitalist.
[2020-04-13] MEDS ORDERED: LORazepam 2MG/ML-1ML VIAL ONE (20:21)
[2020-04-13] MEDS ORDERED: NOREPINEPHRINE 8 MG/250ML KIT 250 ML IV ONE (20:30)
[2020-04-13] MEDS ORDERED: ETOMIDATE (2MG/ML) 20ML VIAL IV ONE (20:33)
[2020-04-13] MEDS ORDERED: SUCCINYLCHOLINE CHLORIDE 20 MG/ML 10ML VIAL IV ONE (20:33)
[2020-04-13] MEDS ORDERED: MIDAZOLAM DRIP 50 mg/50mL 50 ML IV ONE (20:39)
[2020-04-13] MEDS: MIDAZOLAM DRIP 50 mg/50mL 50 ML IV SCH (20:50)
--- NOTE | 2020-04-13 21:21 | NUR ---
Second unit of FFP started.
[2020-04-13] MEDS: ATORVASTATIN 20 MG TAB PO SCH (21:49)
[2020-04-13] MEDS: PANTOPRAZOLE 40 MG/10 ML VIAL INJ IV SCH (22:00)
[2020-04-13] MEDS: PIPERACILLIN-TAZOB 2.25GM 50 ML IV SCH (22:00)
[2020-04-13] MEDS: PANTOPRAZOLE 40mg/50ML NS AE 50 ML IV SCH (22:00)
[2020-04-13] MEDS ORDERED: fentaNYL Drip 2500mCg/250mlNS 250 ML IV ONE (22:31)
--- NOTE | 2020-04-13 22:43 | NUR ---
PRBC's transfusion started. RN will continue to monitor and assess patient.
[2020-04-13] MEDS: fentaNYL Drip 2500mCg/250mlNS 250 ML IV SCH (22:45)
[2020-04-14] VITALS (76 sets, daily range): BP systolic 57–193; BP diastolic 10–95
--- NOTE | 2020-04-14 00:10 | NUR ---
Blood transfusion ended. Patient last blood transfusion ended. No adverse reactions noted. RN will continue to monitor and assess patient.
[2020-04-14 01:00] LABS: Basophils # (auto) 0 10 ^3/uL (0-0.2); Basophils % (auto) 0.1 % (0.0-2.0); Eosinophils # (auto) 0 10 ^3/uL (0-0.8); Eosinophils % (auto) 0.2 % (0.0-7.0); Hemoglobin 8.2 g/dL (12.2-16.2); Lymphocytes # (auto) 1.2 10 ^3/uL (0.4-5.4); Monocytes # (auto) 1.6 10 ^3/uL (0-1.3); Monocytes % (auto) 9.2 % (0.0-12.0); Platelet Count (auto) 103 10^3/uL (140-450)
[2020-04-14 01:02] LABS: Hematocrit 24.4 % (36.0-46.0); Lymphocytes % (auto) 6.8 % (10.0-50.0); Mean Corpuscular Hemoglobin 30.5 pg (28.0-32.0); Mean Corpuscular Hgb Conc. 33.6 g/dL (32.0-36.0); Mean Corpuscular Volume 90.7 fL (80.0-100.0); Neutrophils # (auto) 14.7 10 ^3/uL (1.6-8.6); Neutrophils % (auto) 83.7 % (37.0-80.0); Red Blood Cells 2.69 10^6/uL (4.0-5.20); Red Cell Distribution Width 14.7 % (11.8-14.3); White Blood Cell 17.6 10^3/uL (4.4-10.8)
[2020-04-14 01:33] LABS: BUN/Creatinine Ratio 12.6; Calcium 10.3 mg/dL (8.5-10.1)
[2020-04-14 01:35] LABS: Potassium 5.9 mmol/L (3.5-5.1)
[2020-04-14] MEDS: PANTOPRAZOLE 40mg/50ML NS AE 50 ML IV SCH ×3 (03:00→12:48)
[2020-04-14] MEDS: OCTREOTIDE ACETATE 500 MCG in SODIUM CHL 0.9% 99 ML IV SCH ×2 (03:15→13:15)
--- NOTE | 2020-04-14 06:30 | NUR ---
Family: RN received call from family member "Ivy Pedro", patient's niece. Ivy was able to verify patients date of and other personal information, including current residence. Password was set up.
--- NOTE | 2020-04-14 08:00 | NUR ---
Opening Shift Note Assumed care of patient, ET to [facility] vent, sedated. No S/S of distress/SOB or pain. Temperature 97F axillary, warming measures done. See interventions for complete assessment. Bed locked on low position, side rails up x2, bed alarms on at all times, will continue to monitor for changes Q1hr and PRN.
--- NOTE | 2020-04-14 08:01 | NUR ---
Eye lids noted to be puffy, will inform MD's.
--- NOTE | 2020-04-14 09:00 | NUR ---
Received call from patient's hernanece Ivy who's able to provide password. Updated on patient's status and POC, verbalized understanding. All questions and concerns addressed.
[2020-04-14] MEDS: PANTOPRAZOLE 40 MG/10 ML VIAL INJ IV SCH ×2 (10:00→22:00)
[2020-04-14] MEDS: PIPERACILLIN-TAZOB 2.25GM 50 ML IV SCH ×2 (10:26→22:00)
[2020-04-14] MEDS: MIDAZOLAM DRIP 50 mg/50mL 50 ML IV SCH ×3 (10:42→20:00)
--- NOTE | 2020-04-14 11:00 | NUR ---
Received call from Dr Aguilar. Updated on patient's status, verbalized understanding. Orders received. Will carry out.
[2020-04-14] MEDS ORDERED: VANCOMYCIN 1GM/250ML 250 ML IV ONE (11:15)
--- NOTE | 2020-04-14 11:45 | NUR ---
Dr Rich at bedside. Updated on patient's status. Informed of patient's low diastolic. MD verbalized understanding. Patient seen and examined. Will carry out new orders.
--- NOTE | 2020-04-14 11:50 | NUR ---
Paged Dr Romo at 1150 and called back. Updated on patient's status. verbalized understanding.
[2020-04-14] MEDS ORDERED: OCTREOTIDE ACETATE 500 MCG in SODIUM CHL 0.9% 99 ML IV SCH (12:00)
--- NOTE | 2020-04-14 12:03 | NUR ---
WOUND CARE NOTE: Wound care in to see patient per wound care request regarding low Gilles score of 12 and intubation status, putting patient to high risk for skin breakdown. Patient is 65 years old female with admitting diagnosis of Metabolic Encephalopathy. Patient is resting in SDU bed in Rm. 264. Patient is intubated, sedated and mechanically ventilated. Patient appears to be in no pain using Lowe Guzman Faces Pain Scale. Skin assessment done with the assistance of patient's nurse, JACKIE Wie. No wound noted, no pressure injury noted. Patient has rectal tube in placed with liquid stools in tubing and in collection bag. Patient is receiving BID/PRN cleaning and application of Barrier cream to sacral, buttocks as preventative. Repositioned patient for comfort facing her Rt. side, redistributed pressure points with pillows. Patient tolerated well. JACKIE Wei at bedside. RECOMMENDATION: Nursing to continue with BID/PRN cleaning and application of Barrier cream to sacral, buttocks as preventative, frequent turning and repositioning schedule as condition permits, redistribute pressure points with pillows, elevate heels on pillows, continue monitoring by wound care while patient is intubated. Addendum: 04/14/20 at 1737 by Denia Mckeon RN Amended: Links added.
[2020-04-14] MEDS ORDERED: SODIUM CHL 0.9% 1000 ML BAG XX ONE (12:30)
--- NOTE | 2020-04-14 12:45 | NUR ---
Dr Aguilar at bedside. Updated on patient's status. Patient seen and examined. Will carry out new orders.
[2020-04-14] MEDS ORDERED: DEXTROSE (50%) 50ML SYRG IV PRN (13:00)
[2020-04-14 13:07] LABS: Basophils # (auto) 0 10 ^3/uL (0-0.2); Eosinophils # (auto) 0.4 10 ^3/uL (0-0.8); Lymphocytes # (auto) 2.4 10 ^3/uL (0.4-5.4); Mean Corpuscular Hgb Conc. 31.8 g/dL (32.0-36.0); White Blood Cell 11.7 10^3/uL (4.4-10.8)
[2020-04-14 13:09] LABS: Basophils % (auto) 0.1 % (0.0-2.0); Eosinophils % (auto) 3.6 % (0.0-7.0); Hematocrit 23.7 % (36.0-46.0); Hemoglobin 7.5 g/dL (12.2-16.2); Lymphocytes % (auto) 20.1 % (10.0-50.0); Mean Corpuscular Volume 91.1 fL (80.0-100.0); Monocytes # (auto) 0.9 10 ^3/uL (0-1.3); Monocytes % (auto) 7.9 % (0.0-12.0); Neutrophils % (auto) 68.3 % (37.0-80.0); Platelet Count (auto) 102 10^3/uL (140-450)
--- NOTE | 2020-04-14 13:26 | NUR ---
Received call from Dr Aguilar, updated on patient's labs. Plan to do EGD. Will hold off on OGT/NGT per Dr Aguilar.
--- NOTE | 2020-04-14 14:11 | NUR ---
Nutrition Assessment Notes Please refer to link for full assessment notes. Est Energy needs: 2151-7314 kcals (23-25 kcal/kgBW) Est Protein needs: 75-82 gms/day (1.1-1.2 gm/kgBW) d/t respiratory distress Will continue to monitor and reassess prn. Addendum: 04/14/20 at [address] Amended: Links added.
--- NOTE | 2020-04-14 14:16 | NUR ---
Dr. Romo at the bedside, MD already talked to Dr. Fatima and will transfer service to Dr. Fatima.
--- NOTE | 2020-04-14 14:20 | NUR ---
Hemodialysis in progess at bedside.
[2020-04-14] MEDS ORDERED: MIDAZOLAM HCL 5 MG/ML-1ML VIAL ONE (15:03)
[2020-04-14] MEDS ORDERED: EPINEPHrine HCL 1 MG/1 ML AMP ONE (15:03)
[2020-04-14] MEDS ORDERED: SIMETHICONE 40 MG/0.6 ML ORAL DROP ONE (15:03)
[2020-04-14] MEDS ORDERED: fentaNYL CITRATE 100 MCG/2 ML VL ONE (15:04)
[2020-04-14] MEDS ORDERED: diphenhdrAMINE HCL 50 MG/1 ML VL ONE (15:04)
--- NOTE | 2020-04-14 15:13 | NUR ---
PAGED DR CONDE (LEFT MESSAGE WITH HIS EXCHANGE) GI TEAM AT BEDSIDE FOR EGD, NEED TO STOP DIALYSIS EARLY DO TO ACTIVE BLEEDING.
--- NOTE | 2020-04-14 15:30 | NUR ---
HD at bedside interrupted to give way for EGD. 75 ml pulled out. Patient tolerated well. Will continue to monitor.
--- NOTE | 2020-04-14 16:10 | NUR ---
Bedside EGD that started 1539 completed. See operative record by Dr Aguilar for findings. Patient tolerated well. VS WNL. Will continue to monitor patient.
--- NOTE | 2020-04-14 16:15 | NUR ---
Received verbal order from Dr Aguilar to go ahead and insert OGT/NGT and to discontinue Protonix and Sandostatin drip, CBC and BMP every 8 hours. Read back and verified. Will carry out.
--- NOTE | 2020-04-14 16:30 | NUR ---
Nasogastric tube insertion RT NGT inserted per MD order. Placement verified by aspiration of stomach contents and auscultation with Lakhwinder MEJIA.
--- NOTE | 2020-04-14 16:36 | NUR ---
HD at bedside resumed. Will continue to monitor.
[2020-04-14] MEDS: InsuLIN REG 1unit/0.01ml Soln (100units/ml) SC SCH (18:00)
--- NOTE | 2020-04-14 18:08 | NUR ---
Hemodialysis at bedside completed. Pulled out 1.4 L. Patient tolerated well.
--- NOTE | 2020-04-14 18:20 | NUR ---
Dr Oreilly at bedside, updated on patient's status. Patient seen and examined. Will carry out new orders.
[2020-04-14] MEDS: fentaNYL Drip 2500mCg/250mlNS 250 ML IV SCH (18:33)
[2020-04-14] MEDS: ACCU-CHEK COMFORT CURVE STRIP VI SCH (18:34)
[2020-04-14] MEDS: NOREPINEPHRINE 8 MG/250ML KIT 250 ML IV SCH (18:36)
--- NOTE | 2020-04-14 19:00 | NUR ---
Patient's blood sugar 149 mg/dl. Held Insulin coverage. Patient running D10 to consume.
--- NOTE | 2020-04-14 20:00 | NUR ---
ADMITTED FROM A DIALYSIS UNIT WITH LOW BLOOD SUGAR, LOW BLOOD PRESSURE, LOW HG OF 6.8, CONFUSED AND WITH ABDOMINAL PAIN. INTUBATED ON 04/13/20. SEDATION: VERSED, FENTANYL. HYPOTENSION: LEVOPHED . SEIZURE PRECAUTIONS. RAILS UP AND UPPER RAILS PADDED. LOW BLOOD SUGAR TREATMENT: D10 AT 30CC/HR X 1. LAST BLOOD SUGAR 149. DIALYSIS: CARLOS RIGHT SUBCLAVIAN. NONWORKING FISTULA ERROL. DIALYSIS TODAY. NORMAL SCHEDULE IS ,, SUN. GI BLEED DIAGNOSIS: RIGHT NGT TO LIS. DRAINING A MEDIUM RED LIQUID IN SMALL AMOUNTS. FLEXASEAL: DRAINING A DARK RED LIQUID IN SMALL AMOUNTS. SCDS ON. ECHO ORDERED. PENDING. BMP, CBC Q 8 HOURS. ONE DUE NOW
[2020-04-14] MEDS ORDERED: EPOETIN ALFA 10,000 UNIT/1 ML VIAL SC ONE (21:00)
[2020-04-14] MEDS ORDERED: EPOETIN ALFA 10,000 UNIT/1 ML VIAL IV ONE (21:00)
[2020-04-14 21:39] LABS: Basophils # (auto) 0 10 ^3/uL (0-0.2); Basophils % (auto) 0.1 % (0.0-2.0); Eosinophils # (auto) 0.2 10 ^3/uL (0-0.8); Lymphocytes # (auto) 1.1 10 ^3/uL (0.4-5.4); Monocytes # (auto) 0.8 10 ^3/uL (0-1.3); Red Cell Distribution Width 14.8 % (11.8-14.3)
[2020-04-14 21:41] LABS: Eosinophils % (auto) 2.2 % (0.0-7.0); Hematocrit 23.3 % (36.0-46.0); Hemoglobin 7.5 g/dL (12.2-16.2); Lymphocytes % (auto) 13.3 % (10.0-50.0); Mean Corpuscular Hemoglobin 29.5 pg (28.0-32.0); Mean Corpuscular Hgb Conc. 32.3 g/dL (32.0-36.0); Mean Corpuscular Volume 91.2 fL (80.0-100.0); Monocytes % (auto) 9.7 % (0.0-12.0); Neutrophils # (auto) 6.2 10 ^3/uL (1.6-8.6); Neutrophils % (auto) 74.7 % (37.0-80.0); Platelet Count (auto) 46 10^3/uL (140-450); Red Blood Cells 2.56 10^6/uL (4.0-5.20); White Blood Cell 8.3 10^3/uL (4.4-10.8)
[2020-04-14] MEDS: ATORVASTATIN 20 MG TAB PO SCH (22:00)
[2020-04-14] MEDS ORDERED: GABAPENTIN 100 MG CAP PO SCH (22:00)
--- NOTE | 2020-04-14 22:00 | NUR ---
NSR WITH OCCASIONAL PACS, PVCS. ATTEMPTS AT DECREASING LEVOPHED HAVE HAD PARTIAL SUCCESS. LUNGS CLEAR. NOTHING SUCTIONED FROM THE ETT. NGT HAS MINIMAL RED DRNG. FLEXASEAL NOT DRAINING VERY MUCH. ABDOMEN ROUND AND SOFT. ANURIC.
[2020-04-14 22:32] LABS: BUN/Creatinine Ratio 10.2; Calcium 8.9 mg/dL (8.5-10.1); Potassium 3.4 mmol/L (3.5-5.1)
[2020-04-15] VITALS (103 sets, daily range): BP systolic 71–151; BP diastolic 12–55
--- NOTE | 2020-04-15 | NUR ---
REPOSITIONED. ORAL CARE DONE. LUNGS CLEAR. NOTHING SUCTIONED FROM THE ETT. ORAL CARE DONE.
[2020-04-15] MEDS: MIDAZOLAM DRIP 50 mg/50mL 50 ML IV SCH ×2 (01:00→06:09)
[2020-04-15 01:20] LABS: Albumin 2.9 g/dL (3.4-5.0); BUN/Creatinine Ratio 12.5; Calcium 10.1 mg/dL (8.5-10.1)
[2020-04-15 01:22] LABS: Bilirubin, Total 0.4 mg/dL (0.2-1.0); Total Protein 6.3 g/dL (6.4-8.2)
[2020-04-15 01:26] LABS: Potassium 6.6 mmol/L (3.5-5.1)
--- NOTE | 2020-04-15 02:00 | NUR ---
LEVOPHED STABILIZED AT 10 MCG. IF I GO TO 8, WITHIN AN HOUR IT WILL DROP TO LESS THAN 90.NSR WITHOUT ECTOPY.
[2020-04-15 05:09] LABS: Basophils # (auto) 0 10 ^3/uL (0-0.2); Basophils % (auto) 0.2 % (0.0-2.0); Eosinophils # (auto) 0.3 10 ^3/uL (0-0.8); Eosinophils % (auto) 2.9 % (0.0-7.0); Hematocrit 22.2 % (36.0-46.0); Hemoglobin 7.4 g/dL (12.2-16.2); Lymphocytes # (auto) 1.4 10 ^3/uL (0.4-5.4); Lymphocytes % (auto) 15.4 % (10.0-50.0); Mean Corpuscular Hemoglobin 30.1 pg (28.0-32.0); Mean Corpuscular Hgb Conc. 33.2 g/dL (32.0-36.0); Mean Corpuscular Volume 90.7 fL (80.0-100.0); Monocytes # (auto) 1.1 10 ^3/uL (0-1.3); Neutrophils # (auto) 6.3 10 ^3/uL (1.6-8.6); Neutrophils % (auto) 69.5 % (37.0-80.0); Platelet Count (auto) 50 10^3/uL (140-450); Red Blood Cells 2.45 10^6/uL (4.0-5.20)
[2020-04-15 05:39] LABS: Calcium 9.2 mg/dL (8.5-10.1); Potassium 3.9 mmol/L (3.5-5.1)
[2020-04-15 05:41] LABS: BUN/Creatinine Ratio 10.6
[2020-04-15] MEDS ORDERED: NOREPINEPHRINE 8 MG/250ML KIT 250 ML IV ONE (05:54)
[2020-04-15] MEDS: InsuLIN REG 1unit/0.01ml Soln (100units/ml) SC SCH ×4 (06:00→17:43)
--- NOTE | 2020-04-15 06:00 | NUR ---
HAVE TRIED HOURLY TO DECREASE THE LEVOPHED TO THE NEXT LEVEL, AND THE BLOOD PRESSURE DROPS TO 80S. LEFT THE LEVOPHED AT 10 MCG/MIN. DECREASED THE VERSED THROUGH THE NIGHT FROM 14 TO 8. NO CHANGE IN MENTATION. LUNGS CLEAR. NOT SUCTIONING ANYTHING THIS HOUR. O2 SATURATIONS HAVE ALL BEEN 99-100. GOOD SEAL AROUND THE FLEXASEAL TONIGHT. NOTHING THROUGH THE FLEXASEAL TUBING., NGT PUT OU 250CC OF A GREENISH/BROWN COLOR. NSR WITH OCCASIONAL BIGEMINAL PVC S. TEMP IMPROVED BY JUST PLACING A BLANKET ON HER. IV SITES SHOW NO REDNESS OR SWELLING .
[2020-04-15] MEDS: ACCU-CHEK COMFORT CURVE STRIP VI SCH ×4 (06:01→17:43)
[2020-04-15] MEDS: PIPERACILLIN-TAZOB 2.25GM 50 ML IV SCH ×2 (09:23→22:00)
[2020-04-15] MEDS: PANTOPRAZOLE 40 MG/10 ML VIAL INJ IV SCH ×2 (09:23→22:00)
--- NOTE | 2020-04-15 11:00 | NUR ---
DR CASILLAS SPOKE TO THE NIECE IN [place] AND DISCUSSED CODE STATUS AND DECIDED DNR STATUS FOR THE PATIENT. DOCUMENTED TO CHART.
--- NOTE | 2020-04-15 15:36 | NUR ---
PATIENT REMAINED INTUBATED PATIENT NON RESPONSIVE VERSED TURNED OFF AND ATTEMTED TO REMOVE THE LEVOPHED AND THE BP WENT DOWN TO 70'S. PATIENT'S DIASTOLIC LOW BUT THE MAP IS 65 AND ABOVE. PATIENT ANURIC FLEXESEAL DRAINING BROWNIISH COLOR BUT SMELLS MELENA. NO SEIZURE ACTIVITY NOTED THIS MORNING.DR SIDHU CAME AND SAW THE PATIENT SUCCESSFACTORS CONSULTANT.
--- NOTE | 2020-04-15 17:51 | NUR ---
PATIENT'S BLOOD SUGAR TEST DONE AND OBTAINED 58 D50 1 AMP GIVEN IV .WILL RECHECK IN BLOOD SUGAR IN 30 MINS.
--- NOTE | 2020-04-15 18:15 | NUR ---
RECHECKED BLOOD SUGAR AND OBTAINED 126.
[2020-04-15] MEDS: ATORVASTATIN 20 MG TAB PO SCH (22:00)
[2020-04-15] MEDS: fentaNYL Drip 2500mCg/250mlNS 250 ML IV SCH (22:03)
[2020-04-15] MEDS: NOREPINEPHRINE 8 MG/250ML KIT 250 ML IV SCH (22:19)
[2020-04-16] VITALS (97 sets, daily range): BP systolic 79–167; BP diastolic 14–93
[2020-04-16 03:24] LABS: Basophils # (auto) 0 10 ^3/uL (0-0.2); Basophils % (auto) 0.1 % (0.0-2.0); Eosinophils # (auto) 0.4 10 ^3/uL (0-0.8); Eosinophils % (auto) 3.9 % (0.0-7.0); Hematocrit 20.5 % (36.0-46.0); Lymphocytes # (auto) 1.1 10 ^3/uL (0.4-5.4); Lymphocytes % (auto) 10.5 % (10.0-50.0); Mean Corpuscular Hemoglobin 30.6 pg (28.0-32.0); Mean Corpuscular Hgb Conc. 33.7 g/dL (32.0-36.0); Mean Corpuscular Volume 90.7 fL (80.0-100.0); Monocytes # (auto) 1.3 10 ^3/uL (0-1.3); Monocytes % (auto) 12.2 % (0.0-12.0); Neutrophils # (auto) 7.8 10 ^3/uL (1.6-8.6); Neutrophils % (auto) 73.3 % (37.0-80.0); Platelet Count (auto) 55 10^3/uL (140-450); Red Blood Cells 2.26 10^6/uL (4.0-5.20); Red Cell Distribution Width 14.7 % (11.8-14.3); White Blood Cell 10.6 10^3/uL (4.4-10.8)
[2020-04-16 03:26] LABS: Hemoglobin 6.9 g/dL (12.2-16.2)
[2020-04-16 03:41] LABS: BUN/Creatinine Ratio 9.6; Calcium 9.2 mg/dL (8.5-10.1); Potassium 4.7 mmol/L (3.5-5.1)
[2020-04-16] MEDS: InsuLIN REG 1unit/0.01ml Soln (100units/ml) SC SCH ×4 (05:45→18:00)
[2020-04-16] MEDS: ACCU-CHEK COMFORT CURVE STRIP VI SCH ×4 (05:46→18:00)
--- NOTE | 2020-04-16 06:07 | NUR ---
AM Hg REPORTED 6.9, THE HOSPITALIST PAGED , NO ANSWER YET. PATIENT WILL BE TRANSFERED TO ICU RM 104 VIA BED, ACCOMPANIED BY RT, AND CRYPTOLOGIC TECHNICIAN ON PORTABLE MONITOR AND MANUAL VENTILATION.REPORT GIVEN TO JACKIE MATHUR IN MAIN ICU.ALL BELONGINGS GOING WITH THE PATIENT INCLUDING W/C AND DENTURES.
--- NOTE | 2020-04-16 06:20 | NUR ---
SPOKE WITH HOSPITALIST: YANIRA MORA, ASSIGNED RN, ASKED STEEL ROLLER TO SPEAK TO TYRESE VEGA ON HER BEHALF REGARDING HEMOGLOBIN. PER JACKIE MORA PATIENT IS A DNR AND GI BLEED, AND FAMILY CONSIDERING TERMINAL WEAN. PER TYRESE VEGA RECHECK H/H IN 4 HOURS. ORDERS READBACK AND VERIFIED. NOTIFIED JACKIE MATHUR OF ORDERS
--- NOTE | 2020-04-16 06:30 | NUR ---
RT Transport Note: Patient transported to 104 with RN. Patient transported to and from procedure on ventilator with previous ordered settings. Patient on property assessment monitor with alarms set and audible, ambu-bag/mask connected to 02 tank. Patient returned to room with no adverse reaction noted. Transport completed without incident.
--- NOTE | 2020-04-16 06:43 | NUR ---
Arrival note to ICU. Pt transferred to ICU rm 104 on bed and being bagged by RT. Pt connected to ICU monitoring and mechanical ventilator. Pt started to open eyes but no appropriate movement, sedated on fentanyl at 50mcg. Levophed at 8mcg with B/P 120/30. SEE IV spreadsheet for details. VSS. Will continue to monitor closely.
--- NOTE | 2020-04-16 07:04 | NUR ---
Report given to JACKIE Carrera.
[2020-04-16] MEDS: PIPERACILLIN-TAZOB 2.25GM 50 ML IV SCH ×2 (10:00→22:00)
[2020-04-16] MEDS: PANTOPRAZOLE 40 MG/10 ML VIAL INJ IV SCH ×2 (10:00→22:00)
[2020-04-16 10:10] LABS: Hemoglobin 6.7 g/dL (12.2-16.2)
[2020-04-16] MEDS ORDERED: SODIUM CHL 0.9% 1000 ML BAG XX ONE (10:45)
--- NOTE | 2020-04-16 11:00 | NUR ---
Respiratory note: SPOKE WITH DR. CASILLAS REGARDING DAILY ABG'S. PER DR. CASILLAS DAILY ABG NO LONGER NEEDED UNLESS VENT CHANGES OR ORDERED.
--- NOTE | 2020-04-16 11:55 | NUR ---
EEG COMPLETED AT BEDSIDE.PRIMARY RN KEVIN MARTINEZ.
--- NOTE | 2020-04-16 12:20 | NUR ---
1 UNIT PRBC'S GIVEN BY DIALYSIS NURSE, PATIENT TOLERATED WELL. NO REACTION NOTED.
--- NOTE | 2020-04-16 13:22 | NUR ---
INFORMED BY HDX RN THAT UNABLE TO GET A BP READING. GOT A NEW CUFF AND APPLIED TO PT'S LEFT ARM. PRESSURE OF 61/23. INCREASED LEVOPHED TO 6 MCG AND HDX RN ADMINISTERED A 100ML NS BOLUS. CONTINUE TO MONITOR.
--- NOTE | 2020-04-16 13:29 | NUR ---
BP NOW 116/53. CONTINUE TO MONITOR.
--- NOTE | 2020-04-16 13:50 | NUR ---
1 UNIT OF PRBC'S GIVEN. PATIENT TOLERATED WELL.
--- NOTE | 2020-04-16 14:22 | NUR ---
Nutrition Followup Notes Wt: 73.9 kg Pt was intubated, sedated when rounded this am. per records pt s/p EGD. pt is currently NPO with no new diet orders. pt had HD 04/14 Est Energy needs: 6942-0394 kcals (23-25 kcal/kgBW), Est Protein needs: 75-82 gms/day (1.1-1.2 gm/kgBW) d/t respiratory distress. Will continue to monitor and reassess prn. LABS: BUN 73 H CREAT 7.57 H GLU 112 H GI: Pt has no BM reported gastric drainage of 50 ml per RN doc BS: 15 mod risk. Refer to wound assessment report for full details. PES: 1) Increased nutrient needs aeb pt is intubated, sedated, NPO r/t pt with no PO intake 2) Altered nutrition relate lab values aeb hyperkalemia, elev RFTs, elev GFR, hyperglycemia, mod hypoalbuminemia r/t current/chronic medical condition Comments: Will continue to monitor NPO status, skin status, pertinent labs and weight trends. Will f/u in 2-3 days. 1) If pt remains NPO for the next 48 hours, consider EN nutrition support Nepro with Carb Steady 1.8 @ 40 ml/hr goal rate as tolerated and per MD approval. 3) Gradually advance pt to oral Renal Standard diet when medically feasible and as tolerated 4) Continue with current plan of care
--- NOTE | 2020-04-16 14:27 | NUR ---
Assessment Patient is a 65 year old female who is on a vent in ICU. Per patients hernanjanis Zofia prior to admission patient resided at [facility]. Per Zofia patient will return to [facility] on discharge. Patients PCP is Dr Bass. Per Zofia patient has a seizure during dialysis and she was transported here to ER. Patient is on Dialysis with [facility]. Patient has a wheelchair for home use. I informed Zofia I will continue to monitor and follow up as appropriate. Zofia verbalized understanding. Addendum: 04/16/20 at 1435 by Niesha PERAZA Amended: Links added.
[2020-04-16 14:53] LABS: Basophils # (auto) 0 10 ^3/uL (0-0.2); Eosinophils # (auto) 0.5 10 ^3/uL (0-0.8); Hemoglobin 10.4 g/dL (12.2-16.2); Lymphocytes # (auto) 0.9 10 ^3/uL (0.4-5.4); Platelet Count (auto) 62 10^3/uL (140-450); White Blood Cell 13.3 10^3/uL (4.4-10.8)
[2020-04-16 14:56] LABS: Eosinophils % (auto) 3.7 % (0.0-7.0); Hematocrit 30.7 % (36.0-46.0); Lymphocytes % (auto) 6.6 % (10.0-50.0); Mean Corpuscular Hgb Conc. 33.8 g/dL (32.0-36.0); Mean Corpuscular Volume 91.7 fL (80.0-100.0); Monocytes # (auto) 1.1 10 ^3/uL (0-1.3); Neutrophils # (auto) 10.8 10 ^3/uL (1.6-8.6); Neutrophils % (auto) 81.7 % (37.0-80.0); Nucleated Red Blood Cells % 0.1 %; Red Blood Cells 3.35 10^6/uL (4.0-5.20); Red Cell Distribution Width 14.5 % (11.8-14.3)
[2020-04-16 15:04] LABS: BUN/Creatinine Ratio 9.9; Calcium 8.5 mg/dL (8.5-10.1)
--- NOTE | 2020-04-16 15:15 | NUR ---
DIALYSIS FINISHED. 1 LITER REMOVED.
[2020-04-16] MEDS: NOREPINEPHRINE 8 MG/250ML KIT 250 ML IV SCH (18:30)
--- NOTE | 2020-04-16 19:30 | NUR ---
Opening shift note Received pt on mechanical ventilator, off sedation at this time. Pt opens eyes to painful stimuli and extremity movement seen. No purposeful movement seen. Full assessment done see interventions. VSS. Will continue to monitor closely.
[2020-04-16] MEDS ORDERED: EPOETIN ALFA 4,000 UNIT/ML VL SC ONE (21:00)
[2020-04-16] MEDS: MIDAZOLAM DRIP 50 mg/50mL 50 ML IV SCH (21:46)
[2020-04-16] MEDS: ATORVASTATIN 20 MG TAB PO SCH (22:00)
[2020-04-16] MEDS: fentaNYL Drip 2500mCg/250mlNS 250 ML IV SCH (22:53)
[2020-04-17] VITALS (85 sets, daily range): BP systolic 13–151; BP diastolic 31–80
--- NOTE | 2020-04-17 05:30 | NUR ---
CARES PT GIVEN COMPLETE BED BATH. Linen change. Bloody stool leaking from flexi-seal. cleansed. pt tolerated well. Optifoam to sacrum.
[2020-04-17] MEDS: InsuLIN REG 1unit/0.01ml Soln (100units/ml) SC SCH ×5 (06:00→23:56)
[2020-04-17] MEDS: ACCU-CHEK COMFORT CURVE STRIP VI SCH ×5 (06:00→23:57)
--- NOTE | 2020-04-17 06:50 | NUR ---
Received call from Zofia wild. Password verified, all questions and concerns addressed at this time.
--- NOTE | 2020-04-17 07:04 | NUR ---
Report given and care endorsed to JACKIE Carrera
[2020-04-17 09:03] LABS: Basophils # (auto) 0 10 ^3/uL (0-0.2); Basophils % (auto) 0.1 % (0.0-2.0); Eosinophils # (auto) 0.5 10 ^3/uL (0-0.8); Hematocrit 27.3 % (36.0-46.0); Hemoglobin 9.4 g/dL (12.2-16.2); Lymphocytes # (auto) 0.7 10 ^3/uL (0.4-5.4); Mean Corpuscular Hgb Conc. 34.3 g/dL (32.0-36.0); Monocytes # (auto) 0.9 10 ^3/uL (0-1.3); Neutrophils # (auto) 7.6 10 ^3/uL (1.6-8.6); Neutrophils % (auto) 77.9 % (37.0-80.0); Platelet Count (auto) 53 10^3/uL (140-450); Red Blood Cells 3.02 10^6/uL (4.0-5.20); White Blood Cell 9.8 10^3/uL (4.4-10.8)
[2020-04-17 09:05] LABS: Eosinophils % (auto) 5.3 % (0.0-7.0); Mean Corpuscular Hemoglobin 31.1 pg (28.0-32.0); Mean Corpuscular Volume 90.5 fL (80.0-100.0); Monocytes % (auto) 9.7 % (0.0-12.0); Nucleated Red Blood Cells % 0.1 %; Red Cell Distribution Width 14.6 % (11.8-14.3)
[2020-04-17 09:38] LABS: BUN/Creatinine Ratio 7.6; Potassium 4.3 mmol/L (3.5-5.1)
[2020-04-17] MEDS: PANTOPRAZOLE 40 MG/10 ML VIAL INJ IV SCH ×2 (09:58→21:52)
[2020-04-17] MEDS: PIPERACILLIN-TAZOB 2.25GM 50 ML IV SCH ×2 (09:59→21:52)
[2020-04-17] MEDS: NOREPINEPHRINE 8 MG/250ML KIT 250 ML IV SCH (17:49)
[2020-04-17] MEDS ORDERED: CLINIMIX PER PHARMACY 0 ML IV SCH (18:15)
--- NOTE | 2020-04-17 19:45 | NUR ---
OPENING NOTE: INTUBATED AND OFF SEDATION. OPENS EYES TO NOXIOUS STIMULI. FREQUENT COUGHING AND HIGH PRESSURING THE VENTILATOR. APPEARS UNCOMFORTABLE. MOVING EXTREMITIES UP TOWARD ETT. 2+ PUPILS, BRISK. NSR WITH BBB AND PAC, HR 80s. SBP 120s. 8.0 ETT, 24 AT THE LIP. LS CTA, DIMINISHED THROUGHOUT. SHALLOW, EVEN AND UNLABORED BREATHING. SMALL AMOUNT OF CREAMY ORAL SECRETIONS, AND MODERATE CREAMY ETT SECRETIONS. ABD SOFT. HYPOACTIVE BS. FLEXISEAL INTACT, DRAINING FOUL SMELLING LIQUID BURGUNDY STOOL. NGT PLACED TO LIS, + AIR BOLUS, BILIOUS OUTPUT. ANURIC. SKIN GROSSLY INTACT. RIGHT UPPER ARM MIDLINE, CDI, AND PATENT WITH BLOOD RETURN. RIGHT FEMORAL CVC, CDI, AND PATENT WITH BLOOD RETURN. RIGHT SC CARLOS CATH, CDI. LEFT UPPER ARM AVF WITHOUT BRUIT OR THRILL. REINFORCED POC. MAINTAINED PATIENT SAFETY: BED LOCKED AND IN THE LOWEST POSITION, FREQUENT VISUAL CHECKS, BED ALARM ON, BILATERAL SOFT MITTENS FOR SAFETY. WILL CONT CARE. Addendum: 04/17/20 at 2346 by Bailee Davila RN RN LEFT UPPER ARM IS NOT AV FISTULA BUT A HeRO GRAFT.
[2020-04-17] MEDS ORDERED: AMINO ACID INFUSION IN D5W 2,000 ML IV ONE (20:00)
[2020-04-17] MEDS: LORazepam 2MG/ML-1ML VIAL IV PRN (20:52)
--- NOTE | 2020-04-17 20:53 | NUR ---
FREQUENT COUGHING, AND APPEARS UNCOMFORTABLE - ATIVAN PRN GIVEN
[2020-04-17] MEDS: MIDAZOLAM DRIP 50 mg/50mL 50 ML IV SCH (21:46)
[2020-04-17] MEDS: ATORVASTATIN 20 MG TAB PO SCH (21:52)
[2020-04-17] MEDS: fentaNYL Drip 2500mCg/250mlNS 250 ML IV SCH (22:53)
[2020-04-18] VITALS (81 sets, daily range): BP systolic 72–146; BP diastolic 19–59
[2020-04-18] MEDS: fentaNYL Drip 2500mCg/250mlNS 250 ML IV SCH (00:22)
--- NOTE | 2020-04-18 00:32 | NUR ---
FENTANYL GTT STARTED: PATIENT CONTINUOUSLY COUGHING, AND GAGGING ON ETT. GRIMACING. WILL REASSESS RASS AND TITRATE APPROPRIATE
--- NOTE | 2020-04-18 04:00 | NUR ---
FLEXISEAL D/C'D PER MD ORDER: ALBINA CARE PERFORMED WITH SOAP AND WATER. PAT DRY, APPLIED THIN LAYER OF ZGUARD.
--- NOTE | 2020-04-18 04:15 | NUR ---
BED BATH WITH SOAP AND WATER, ALBINA CARE, ORAL CARE, AND PARTIAL LINEN CHANGED
[2020-04-18 04:37] LABS: Basophils # (auto) 0 10 ^3/uL (0-0.2); Basophils % (auto) 0.3 % (0.0-2.0); Eosinophils # (auto) 0.5 10 ^3/uL (0-0.8); Eosinophils % (auto) 6.1 % (0.0-7.0); Hematocrit 25.9 % (36.0-46.0); Lymphocytes # (auto) 0.9 10 ^3/uL (0.4-5.4); Lymphocytes % (auto) 9.8 % (10.0-50.0); Mean Corpuscular Hemoglobin 31.6 pg (28.0-32.0); Mean Corpuscular Hgb Conc. 34.7 g/dL (32.0-36.0); Mean Corpuscular Volume 91.2 fL (80.0-100.0); Monocytes # (auto) 0.8 10 ^3/uL (0-1.3); Monocytes % (auto) 8.9 % (0.0-12.0); Neutrophils # (auto) 6.5 10 ^3/uL (1.6-8.6); Neutrophils % (auto) 74.9 % (37.0-80.0); Platelet Count (auto) 66 10^3/uL (140-450); Red Blood Cells 2.83 10^6/uL (4.0-5.20); Red Cell Distribution Width 14.2 % (11.8-14.3); White Blood Cell 8.7 10^3/uL (4.4-10.8)
[2020-04-18 04:56] LABS: Potassium 4.1 mmol/L (3.5-5.1)
[2020-04-18 05:02] LABS: BUN/Creatinine Ratio 7.2; Bilirubin, Total 0.6 mg/dL (0.2-1.0); Calcium 8.9 mg/dL (8.5-10.1); Magnesium 2.3 mg/dL (1.6-2.6); Phosphorus 4.3 mg/dL (2.5-4.90); Pre Albumin 10.9 mg/dL (20.0-40.0); Total Protein 5.5 g/dL (6.4-8.2)
[2020-04-18] MEDS: ACCU-CHEK COMFORT CURVE STRIP VI SCH ×3 (05:45→17:48)
[2020-04-18] MEDS: InsuLIN REG 1unit/0.01ml Soln (100units/ml) SC SCH ×3 (05:45→17:48)
--- NOTE | 2020-04-18 06:00 | NUR ---
CENTRAL LINE DRESSING CHANGED VIA STERILE TECHNIQUE: PREVIOUS DRESSING BLEEDING, SLIGHT OOZING NOTED FROM INSERTION SITE. WILL ENDORSE TO DAY SHIFT TO MONITOR. WILL CONT CARE.
--- NOTE | 2020-04-18 06:47 | NUR ---
FAMILY UPDATE: AFTER PASSWORD VERIFIED, UPDATED ON PATIENTS' STATUS. ANSWERED ALL QUESTIONS ABLE.
--- NOTE | 2020-04-18 07:14 | NUR ---
REPORT AND CARE ENDORSED TO JACKIE JAMES
--- NOTE | 2020-04-18 08:30 | NUR ---
HOSPITALIST DR. ASHER AT BEDSIDE. MD UPDATED ON PATIENTS STATUS. SEE NEW ORDERS.
--- NOTE | 2020-04-18 08:30 | NUR ---
Neuro status Patient responsive to light pain, cares done and patient noted to slighlty open eyes. Patient moving upper extremities and occasionally lower legs. Patient not yet tracking or following commands. Sedation off. Will continue to monitor.
--- NOTE | 2020-04-18 09:00 | NUR ---
Elimination Patient had a smear of keo arango. Skin cleansed. Skin noted to have masd with area of concern to buttock due to diarrhea, previous rectal tube removed by noc nurse. Upper buttock/ lower back noted to have an abrasion. Pictures taken for reference. Zguard applied. Optifoam in place. Wound care nurse to be notified.
--- NOTE | 2020-04-18 10:14 | NUR ---
Nutrition Followup Notes Wt: 78.1 kg Pt was intubated, sedated when rounded this am. per records pt s/p EGD. pt is currently NPO with no diet orders. Consider Nepro CS 1.8 at a goal rate of 40 ml/hr if TF is recommended per MD order. Consider TPN if GI is not accessible. Est Energy needs: 2505-0673 kcals (23-25 kcal/kgBW), Est Protein needs: 75-82 gms/day (1.1-1.2 gm/kgBW) d/t respiratory distress. Will continue to monitor and reassess prn. LABS: BUN 43H, Creat 5.98H, Alb 2.0L GI: Pt has no BM reported gastric drainage of 150 ml per RN doc on 04/18 BS: 12 high risk. Refer to wound assessment report for full details. PES: 1) Increased nutrient needs aeb pt is intubated, sedated, NPO r/t pt with no PO intake 2) Altered nutrition relate lab values aeb hyperkalemia, elev RFTs, elev GFR, hyperglycemia, mod hypoalbuminemia r/t current/chronic medical condition Comments: Will continue to monitor NPO status, skin status, pertinent labs and weight trends. Will f/u in 2-3 days. 1) If pt remains NPO for the next 48 hours, consider EN nutrition support Nepro with Carb Steady 1.8 @ 40 ml/hr goal rate as tolerated and per MD approval. 3) Gradually advance pt to oral Renal Standard diet when medically feasible and as tolerated 4) Continue with current plan of care
--- NOTE | 2020-04-18 11:00 | NUR ---
WOUND CARE NOTE: PATIENT NOTED TO HAVE A SMALL OPEN 0.3 X 0.5 CM PARTIAL THICKNESS WOUND TO THE RIGHT BUTTOCK, OVER MASD. WOUND PHOTO TAKEN AT THAT TIME BY BEDSIDE NURSE FOR REFERENCE. PATIENT IS RESTING ON ICU LOW [facility] BED. SHE REMAINS INTUBATED, SEDATED. DEANNA SCORE IS 12. SHE IS RECEIVING ZGUARD, OPTIFOAM GENTLE SACRAL DRESSING TO THE AREA. SKIN/WOUND CARE PLAN UPDATED. RECOMMEND: CONTINUE WITH ZGUARD, OPTIFOAM GENTLE SACRAL DRESSING BID/PRN; FREQUENT PERICARE NEEDED, AVOIDING RUBBING OF SKIN TO PROTECT SKIN; CONTINUATION WITH ALL OTHER WOUND CARE ORDERS. WOUND CARE TEAM WILL CONTINUE TO MONITOR. Addendum: 04/18/20 at 1405 by Jnea Croft RN Amended: Links added.
[2020-04-18] MEDS: PIPERACILLIN-TAZOB 2.25GM 50 ML IV SCH ×2 (11:26→22:23)
[2020-04-18] MEDS: PANTOPRAZOLE 40 MG/10 ML VIAL INJ IV SCH ×2 (11:27→22:23)
[2020-04-18] MEDS: SODIUM CHLORIDE 0.9% 1,000 ML IV SCH (14:00)
--- NOTE | 2020-04-18 16:00 | NUR ---
Neuro status Sedation remains off. Patient continues to be responsive to light pain during cares and slightly opening eyes, not yet tracking or following commands. Will continue to monitor.
[2020-04-18] MEDS: NOREPINEPHRINE 8 MG/250ML KIT 250 ML IV SCH (17:48)
--- NOTE | 2020-04-18 17:59 | NUR ---
Respiratory note: RECEIVED PT ON VENT 14, VENT CONNECTED TO RED OUTLET AND O2 SOURCE. ALARMS ARE SET AND AUDIBLE AMBU BAG AND MASK AT BEDSIDE. BS ARE FINE COURSE T/O, SXD VIA ETT FOR SMALL THICK CREAMY WHITE. GAG SEEN W/ SXD. RT NAME AND PAGER ASSIGNMENT WRITTEN ON PTS ROOM BOARD. WILL CONTINUE TO MONITOR.
--- NOTE | 2020-04-18 18:03 | NUR ---
Family updated on pt status Family of MIGUEL OLIVARES updated on patient's status and condition. All questions and concerns addressed. Ivy verbalized understanding.
--- NOTE | 2020-04-18 19:09 | NUR ---
Report given Updated noc shift on plan of care. Patient tolerating ventilator at this time. VSS.
--- NOTE | 2020-04-18 19:54 | NUR ---
Respiratory note: AT BEDSIDE FOR ROUTINE VENT CHECK. NO CHANGES MADE. WILL CONTINUE TO MONITOR.
[2020-04-18] MEDS: MIDAZOLAM DRIP 50 mg/50mL 50 ML IV SCH (21:46)
--- NOTE | 2020-04-18 22:13 | NUR ---
Respiratory note: AT BEDSIDE FOR ROUTINE VENT CHECK. SXD FOR MODERATE AMOUNT OF THICK COUGHLIN/WHITE. HME AND SX BERNAL CHANGED. WILL CONTINUE TO MONITOR.
[2020-04-18] MEDS: AMINO ACID INFUSION IN D5W 1,000 ML IV NR (22:22)
[2020-04-18] MEDS: ATORVASTATIN 20 MG TAB PO SCH (22:24)
[2020-04-19] VITALS (72 sets, daily range): BP systolic 70–167; BP diastolic 13–89
[2020-04-19] MEDS ORDERED: DEXTROSE (50%) 50ML SYRG IV SCH
[2020-04-19] MEDS ORDERED: InsuLIN REG 1unit/0.01ml Soln (100units/ml) SC SCH
[2020-04-19] MEDS ORDERED: ACCU-CHEK COMFORT CURVE STRIP VI SCH
--- NOTE | 2020-04-19 00:39 | NUR ---
Respiratory note: AT BEDSIDE FOR ROUTINE VENT CHECK. JACKIE HOFFMAN AT BESIDE PERFORMING CARES. WILL CONTINUE TO MONITOR.
--- NOTE | 2020-04-19 02:16 | NUR ---
Respiratory note: AT BEDSIDE FOR ROUTINE VENT CHECK. NO CHANGES MADE. WILL CONTINUE TO MONITOR.
[2020-04-19] MEDS: SODIUM CHLORIDE 0.9% 1,000 ML IV SCH (02:28)
--- NOTE | 2020-04-19 03:00 | NUR ---
CARES FULL BED LINEN CHANGE, PARTIAL BED BATH. PATIENT TOLERATED TURNS WELL.
[2020-04-19 04:17] LABS: Albumin 2.1 g/dL (3.4-5.0); Calcium 8.8 mg/dL (8.5-10.1); Magnesium 2.1 mg/dL (1.6-2.6); Potassium 3.6 mmol/L (3.5-5.1)
[2020-04-19 04:19] LABS: BUN/Creatinine Ratio 7.6; Bilirubin, Total 0.5 mg/dL (0.2-1.0); Phosphorus 3.8 mg/dL (2.5-4.90)
[2020-04-19] MEDS: InsuLIN REG 1unit/0.01ml Soln (100units/ml) SC SCH ×4 (05:58→18:00)
[2020-04-19] MEDS: ACCU-CHEK COMFORT CURVE STRIP VI SCH ×4 (05:58→18:00)
--- NOTE | 2020-04-19 06:08 | NUR ---
NEUROLOGICAL REASSESSMENT PATIENT RESPONDS TO LIGHT PAIN. ABLE TO SQUEEZE WITH RIGHT HAND ON DEMAND AND WIGGLE FEET BILATERALLY. THE MOVEMENT IS SLOW, MINIMUM AND DELAYED. SEE INTERVENTIONS FOR FULL ASSESSMENT.
[2020-04-19 07:44] LABS: Basophils # (auto) 0.1 10 ^3/uL (0-0.2); Basophils % (auto) 0.8 % (0.0-2.0); Eosinophils # (auto) 0.6 10 ^3/uL (0-0.8); Hematocrit 26.5 % (36.0-46.0); Lymphocytes # (auto) 0.7 10 ^3/uL (0.4-5.4); Lymphocytes % (auto) 8.7 % (10.0-50.0); Mean Corpuscular Hemoglobin 31.2 pg (28.0-32.0); Monocytes # (auto) 0.7 10 ^3/uL (0-1.3); Monocytes % (auto) 8.9 % (0.0-12.0); Neutrophils # (auto) 5.9 10 ^3/uL (1.6-8.6); Neutrophils % (auto) 73.6 % (37.0-80.0); Platelet Count (auto) 83 10^3/uL (140-450); Red Blood Cells 2.88 10^6/uL (4.0-5.20); Red Cell Distribution Width 14.3 % (11.8-14.3)
[2020-04-19] MEDS: PIPERACILLIN-TAZOB 2.25GM 50 ML IV SCH ×2 (09:41→21:44)
[2020-04-19] MEDS: PANTOPRAZOLE 40 MG/10 ML VIAL INJ IV SCH ×2 (09:41→21:44)
[2020-04-19] MEDS: NOREPINEPHRINE 8 MG/250ML KIT 250 ML IV SCH (16:40)
--- NOTE | 2020-04-19 18:08 | NUR ---
Respiratory note: RECEIVED PT ON VENT V14, VENT CONNECTED TO RED OUTLET AND O2 SOURCE ALARMS ARE SET AND AUDIBLE. AMBU BAG AND MASK AT BEDSIDE, BS ARE FINE COURSE T/O RIGHT LUNG LUA DIMINISHED T/O LEFT LUNG LUA. SXD VIA ETT FOR MODERATE THICK COUGHLIN. ETT MOVED FORM LEFT TO CENTER WITHOUT INCIDENT. NO OTHER CHANGES MADE WILL CONTINUE TO MONITOR.
[2020-04-19] MEDS: AMINO ACID INFUSION IN D5W 1,000 ML IV NR ×2 (19:49→20:00)
--- NOTE | 2020-04-19 20:00 | NUR ---
RIGHT FEMORAL DRESSING CHANGED USING PICC LINE KIT AND STERILE TECHNIQUE. APPLIED BIO DISK, APPLIED SNOW TO STOP BLEEDING.
--- NOTE | 2020-04-19 20:04 | NUR ---
Respiratory note: AT BEDSIDE FOR ROUTINE VENT CHECK. NO CHANGES MADE WILL CONTINUE TO MONITOR.
[2020-04-19] MEDS: MIDAZOLAM DRIP 50 mg/50mL 50 ML IV SCH (21:43)
[2020-04-19] MEDS: ATORVASTATIN 20 MG TAB PO SCH (21:44)
--- NOTE | 2020-04-19 22:13 | NUR ---
Respiratory note: AT BEDSIDE FOR ROUTINE VENT CHECK. SXD VIA ETT FOR SMALL THIN COUGHLIN. NO VENT CHANGES MADE. WILL CONTINUE TO MONITOR.
[2020-04-19] MEDS: fentaNYL Drip 2500mCg/250mlNS 250 ML IV SCH (22:53)
[2020-04-20] VITALS (44 sets, daily range): BP systolic 74–158; BP diastolic 24–78
[2020-04-20] MEDS: ACCU-CHEK COMFORT CURVE STRIP VI SCH ×5 (00:05→23:54)
--- NOTE | 2020-04-20 00:05 | NUR ---
Respiratory note: AT BEDSIDE FOR ROUTINE VENT CHECK. SXD FOR MODERATE THICK COUGHLIN/WHITE. NO VENT CHANGES MADE. WILL CONTINUE TO MONITOR.
--- NOTE | 2020-04-20 02:06 | NUR ---
Respiratory note: AT BEDSIDE FOR ROUTINE VENT CHECK. PLACES PT ON HEATED WIRE CIRCUIT WITHOUT INCIDENT, JACKIE HOFFMAN AT BEDSIDE AND AWARE OF CHANGE. WILL CONTINUE TO MONITOR.
[2020-04-20 04:07] LABS: Hematocrit 24.4 % (36.0-46.0); Hemoglobin 8.5 g/dL (12.2-16.2); Mean Corpuscular Hemoglobin 31.5 pg (28.0-32.0); Mean Corpuscular Hgb Conc. 34.7 g/dL (32.0-36.0); Mean Corpuscular Volume 90.8 fL (80.0-100.0); Platelet Count (auto) 88 10^3/uL (140-450); Red Blood Cells 2.69 10^6/uL (4.0-5.20); Red Cell Distribution Width 14.1 % (11.8-14.3); White Blood Cell 7.1 10^3/uL (4.4-10.8)
--- NOTE | 2020-04-20 04:10 | NUR ---
CARES FULL BED LINEN CHANGE, CHG BATH, OPTIFOAM TO SACRUM. PATIENT TOLERATED TURNS AND CARES WELL.
[2020-04-20 04:26] LABS: Albumin 1.9 g/dL (3.4-5.0); Calcium 8.5 mg/dL (8.5-10.1); Magnesium 1.8 mg/dL (1.6-2.6); Potassium 3.3 mmol/L (3.5-5.1)
[2020-04-20 04:29] LABS: BUN/Creatinine Ratio 7.6; Bilirubin, Total 0.4 mg/dL (0.2-1.0); Phosphorus 3.7 mg/dL (2.5-4.90); Total Protein 5.7 g/dL (6.4-8.2)
[2020-04-20 04:53] LABS: Basophils % (manual) 0 (0.0-2.0); Blast Cells 0; Metamyelocytes % 0; Myelocytes % 0; Promyelocytes % 0; Reactive Lymphocytes 0
[2020-04-20] MEDS: InsuLIN REG 1unit/0.01ml Soln (100units/ml) SC SCH ×5 (05:39→23:54)
[2020-04-20 06:06] LABS: Band Neutrophils % (manual) 1; Eosinophils % (manual) 10 (0-7); Lymphocytes % (manual) 15 (10.0-50.0); Monocytes % (manual) 2 (0-12)
[2020-04-20] MEDS ORDERED: SODIUM CHL 0.9% 1000 ML BAG XX ONE (07:00)
--- NOTE | 2020-04-20 10:51 | NUR ---
DIALYSIS: HD nurse at bedside for treatment.
[2020-04-20] MEDS ORDERED: POTASSIUM CHL 20MEQ/100ML 100 ML IV ONE (11:00)
--- NOTE | 2020-04-20 11:01 | NUR ---
Nutrition Followup Notes Wt: 78.3 kg Pt was intubated, sedated when rounded this am. Pt is NPO and currently has Clinimix ordered and running at 42 ml/hr when rounding this morning. Consider nutrition per MD orders and family. Pt is still receiving dialysis, pt with dialysis today 04/20. Est Energy needs: 9225-9190 kcals (23-25 kcal/kgBW), Est Protein needs: 75-82 gms/day (1.1-1.2 gm/kgBW) d/t respiratory distress. Will continue to monitor and reassess prn. LABS: BUN 54H, Creat 2.14H, Alb 1.9L, K 3.3L, Na 130L GI: Pt has no BM reported gastric drainage of 150 ml and 200 ml per RN doc on 04/18 BS: 9 high risk. Refer to wound assessment report for full details. PES: 1) Increased nutrient needs aeb pt is intubated, sedated, NPO r/t pt with no PO intake 2) Altered nutrition relate lab values aeb hyperkalemia, elev RFTs, elev GFR, hyperglycemia, mod hypoalbuminemia r/t current/chronic medical condition Comments: Will continue to monitor NPO status, skin status, pertinent labs and weight trends. Will f/u in 2-3 days. 1) If pt remains NPO for the next 48 hours, consider EN nutrition support Nepro with Carb Steady 1.8 @ 40 ml/hr goal rate as tolerated and per MD approval. 3) Gradually advance pt to oral Renal Standard diet when medically feasible and as tolerated 4) Continue with current plan of care
[2020-04-20] MEDS: PANTOPRAZOLE 40 MG/10 ML VIAL INJ IV SCH ×2 (14:28→21:50)
[2020-04-20] MEDS: PIPERACILLIN-TAZOB 2.25GM 50 ML IV SCH ×2 (14:47→21:49)
[2020-04-20] MEDS: NOREPINEPHRINE 8 MG/250ML KIT 250 ML IV SCH (18:30)
[2020-04-20] MEDS: AMINO ACID INFUSION IN D5W 1,000 ML IV NR (19:49)
[2020-04-20] MEDS: AMINO ACID INFUSION IN D5W 2,000 ML IV NR (20:20)
[2020-04-20] MEDS ORDERED: EPOETIN ALFA 4,000 UNIT/ML VL SC ONE (21:00)
[2020-04-20] MEDS: MIDAZOLAM DRIP 50 mg/50mL 50 ML IV SCH (21:46)
[2020-04-20] MEDS: ATORVASTATIN 20 MG TAB PO SCH (21:49)
[2020-04-20] MEDS: fentaNYL Drip 2500mCg/250mlNS 250 ML IV SCH (22:53)
[2020-04-21] VITALS (36 sets, daily range): BP systolic 107–162; BP diastolic 30–140
--- NOTE | 2020-04-21 | NUR ---
Dialysis catheter Dressing Changes Rt. sub. dialysis catheter dressing change done with a sterile technique. Cleansed with chloraprep scrub/betadine. bio-patch applied to the site. Occlusive dressing applied.
--- NOTE | 2020-04-21 00:30 | NUR ---
Patient bathe/linen change Patient given complete bath with chlorhexidine wipes. Skin integrity assessed for any changes. Linens changed. Patient repositioned for comfort.
[2020-04-21 04:29] LABS: Hematocrit 23.8 % (36.0-46.0); Hemoglobin 8.4 g/dL (12.2-16.2)
[2020-04-21 04:30] LABS: Mean Corpuscular Hemoglobin 31.7 pg (28.0-32.0); Mean Corpuscular Hgb Conc. 35.3 g/dL (32.0-36.0); Mean Corpuscular Volume 89.8 fL (80.0-100.0); Platelet Count (auto) 85 10^3/uL (140-450); Red Blood Cells 2.65 10^6/uL (4.0-5.20); White Blood Cell 6.8 10^3/uL (4.4-10.8)
[2020-04-21 04:40] LABS: Calcium 8.8 mg/dL (8.5-10.1); Magnesium 1.9 mg/dL (1.6-2.6)
[2020-04-21 04:42] LABS: Band Neutrophils % (manual) 0; Basophils % (manual) 0 (0.0-2.0); Metamyelocytes % 0
[2020-04-21 04:43] LABS: Blast Cells 0; Myelocytes % 0; Promyelocytes % 0; Reactive Lymphocytes 0
[2020-04-21 04:45] LABS: BUN/Creatinine Ratio 6.8; Bilirubin, Total 0.4 mg/dL (0.2-1.0); Phosphorus 2.8 mg/dL (2.5-4.90); Total Protein 5.8 g/dL (6.4-8.2)
[2020-04-21 04:58] LABS: Potassium 2.9 mmol/L (3.5-5.1)
--- NOTE | 2020-04-21 05:14 | NUR ---
PAGED HOSPITALIST REGARDING HYPOKALEMIA.
[2020-04-21] MEDS ORDERED: POTASSIUM CHL 20MEQ/100ML 100 ML IV ONE ×2 (05:30→09:45)
[2020-04-21 05:38] LABS: Eosinophils % (manual) 6 (0-7); Lymphocytes % (manual) 9 (10.0-50.0); Monocytes % (manual) 7 (0-12)
[2020-04-21] MEDS: InsuLIN REG 1unit/0.01ml Soln (100units/ml) SC SCH ×3 (05:40→18:00)
[2020-04-21] MEDS: ACCU-CHEK COMFORT CURVE STRIP VI SCH ×3 (05:40→18:13)
[2020-04-21] MEDS ORDERED: SODIUM CHL 0.9% 1000 ML BAG XX ONE (07:00)
[2020-04-21] MEDS: PANTOPRAZOLE 40 MG/10 ML VIAL INJ IV SCH ×2 (09:51→22:14)
[2020-04-21] MEDS: PIPERACILLIN-TAZOB 2.25GM 50 ML IV SCH ×2 (09:51→22:14)
--- NOTE | 2020-04-21 11:00 | NUR ---
LUBRICATION WORKER SPOKE TO PATIENT'S ANDRA CECILIA - UPDATED HER ON PATIENT CONDITION UNCHANGED.
--- NOTE | 2020-04-21 11:15 | NUR ---
DR CASILLAS VISITS AND EXAMINES PATIENT - NO NEW ORDERS AT PRESENT.
--- NOTE | 2020-04-21 14:40 | NUR ---
CLOTHES MODEL SPOKE TO PATIENT'S SISTER NATASHA-INFORMED HER OF PLAN FOR WITHDRAWAL OF LIFE SUPPORT - PATIENT;S SISTER IN AGREEMENT, TEARFUL- SUPPORT OFFERED.
--- NOTE | 2020-04-21 15:30 | NUR ---
PATIENT AWAKE AND ALERT, FOLLOWING COMMANDS, ABLE TO MOVE ALL EXTREMITIES - DR CASILLAS NOTIFIED-STATES TO ATTEMPT CPAP TRIAL. PATIENT HAS VISITOR AT BEDSIDE - COMMUNICATING WITH VISITOR.- ORDERS RECEIVED TO TRY CPAP TRIAL - RT RUCKER NOTIFIED.
--- NOTE | 2020-04-21 15:35 | NUR ---
7 BEAT RUN VT BEATS NOTED - STRIP POSTED TO CHART
--- NOTE | 2020-04-21 15:45 | NUR ---
Respiratory note: CPAP TRIAL INITIATED, HR 73, RR 14, SPO2 100%, BP 127/40.
--- NOTE | 2020-04-21 16:30 | NUR ---
Respiratory note: TERMINATED CPAP TRIAL AND PLACED PT BACK ON AC MODE ON PREVIOUS SETTINGS. CPAP TRIAL IN THE AM.
[2020-04-21] MEDS: AMINO ACID INFUSION IN D5W 2,000 ML IV NR (19:49)
[2020-04-21] MEDS ORDERED: CLINIMIX PER PHARMACY IV NR (20:00)
[2020-04-21] MEDS ORDERED: EPOETIN ALFA 10,000 UNIT/1 ML VIAL SC ONE (21:00)
--- NOTE | 2020-04-21 21:00 | NUR ---
EPOGEN HELD NO DIALYSIS TODAY(ORDER IS POST DIALYSIS)
[2020-04-21] MEDS: MIDAZOLAM DRIP 50 mg/50mL 50 ML IV SCH (21:46)
[2020-04-21] MEDS: ATORVASTATIN 20 MG TAB PO SCH (22:14)
[2020-04-21] MEDS: fentaNYL Drip 2500mCg/250mlNS 250 ML IV SCH (22:53)
[2020-04-22] VITALS (53 sets, daily range): BP systolic 94–179; BP diastolic 23–99
[2020-04-22] MEDS: ACCU-CHEK COMFORT CURVE STRIP VI SCH ×5 (00:19→23:54)
--- NOTE | 2020-04-22 02:30 | NUR ---
Oral gastric tube insertion Patient removed NGT. Mittens applied on both hands. Patient educated on need for OG tube. OGT inserted. Placement verified by aspiration of stomach contents, and auscultation.
--- NOTE | 2020-04-22 03:00 | NUR ---
Patient bathe/linen change Patient given complete bath. Skin integrity assessed for any changes. Linens changed. Patient repositioned for comfort.
[2020-04-22 05:31] LABS: BUN/Creatinine Ratio 6.3; Potassium 3.1 mmol/L (3.5-5.1)
[2020-04-22 05:32] LABS: Albumin 2.1 g/dL (3.4-5.0); Bilirubin, Total 0.3 mg/dL (0.2-1.0); Calcium 9.1 mg/dL (8.5-10.1); Phosphorus 3.3 mg/dL (2.5-4.90); Total Protein 6.1 g/dL (6.4-8.2)
[2020-04-22] MEDS: InsuLIN REG 1unit/0.01ml Soln (100units/ml) SC SCH ×5 (06:45→23:54)
[2020-04-22] MEDS ORDERED: SODIUM CHL 0.9% 1000 ML BAG XX ONE (07:00)
--- NOTE | 2020-04-22 07:45 | NUR ---
HD TREATMENT STARTED
--- NOTE | 2020-04-22 08:00 | NUR ---
NEURO PATIENT ALERT AND TRYING TO TALK AROUND ETT, FOLLOWING COMMANDS AND MOVING ALL EXTREMITIES. HYPERACTIVE COUGH/GAG NOTED. CPAP TRIAL PLANNED FOR AFTER HD TREATMENT.
[2020-04-22 08:01] LABS: Hemoglobin 8.8 g/dL (12.2-16.2); Mean Corpuscular Hemoglobin 31.9 pg (28.0-32.0); Mean Corpuscular Hgb Conc. 35.1 g/dL (32.0-36.0); Mean Corpuscular Volume 91.1 fL (80.0-100.0); Platelet Count (auto) 97 10^3/uL (140-450); Red Blood Cells 2.74 10^6/uL (4.0-5.20); Red Cell Distribution Width 14.6 % (11.8-14.3); White Blood Cell 6.9 10^3/uL (4.4-10.8)
[2020-04-22 08:11] LABS: Band Neutrophils % (manual) 0; Basophils % (manual) 0 (0.0-2.0); Blast Cells 0; Metamyelocytes % 0; Myelocytes % 0; Promyelocytes % 0; Reactive Lymphocytes 0
[2020-04-22 09:26] LABS: Eosinophils % (manual) 18 (0-7); Lymphocytes % (manual) 9 (10.0-50.0); Monocytes % (manual) 5 (0-12)
--- NOTE | 2020-04-22 09:53 | NUR ---
DR CASILLAS VISITS AND EXAMINES PATIENT - ORDER RECEIVED.
--- NOTE | 2020-04-22 10:00 | NUR ---
DR SIDHU VISITS AND EXAMINES PATIENT - NO NEW ORDERS RECEIVED. Addendum: 04/22/20 at 1000 by Mone Mehta RN CHARTING TIME SHOULD BE 0810
[2020-04-22] MEDS: NOREPINEPHRINE 8 MG/250ML KIT 250 ML IV SCH ×2 (10:01→18:30)
--- NOTE | 2020-04-22 10:45 | NUR ---
HD TREATMENT COMPLETED - 2.8L REMOVED AND PATIENT DANIEL WELL.
[2020-04-22] MEDS: PANTOPRAZOLE 40 MG/10 ML VIAL INJ IV SCH ×2 (11:20→21:26)
[2020-04-22] MEDS: PIPERACILLIN-TAZOB 2.25GM 50 ML IV SCH ×2 (11:20→21:26)
--- NOTE | 2020-04-22 11:30 | NUR ---
PLACED PT. ON CPAP 5, PS 8, PER DR. CASILLAS'S ORDERS. PT. IS AWAKE AND ABLE TO FOLLOW SIMPLE COMMANDS. PT. APPEARS TO BE TOLERATING WELL AT THIS TIME, WILL CONTINUE TO MONITOR RESP. STATUS AND 02 SATS.
--- NOTE | 2020-04-22 11:41 | NUR ---
Nutrition Followup Notes Wt: 77.8 kg Pt was intubated, sedated when rounded this am. Pt is NPO off PN support. pt to have HD today. per records pt failed CPAP yesterday and to have another CPAP trial today Est Energy needs: 6046-7962 kcals (27-30 kcal/kgBW), Est Protein needs: 81-95 gms/day (1.2-1.4 gm/kgBW) reassesed due to HD. Will continue to monitor and reassess prn. LABS: BUN 35 H CREAT 5.6 H ALB 2.1 L GI: Pt has no BM reported gastric drainage of 50 ml and 200 ml per RN doc BS: 12 high risk. Refer to wound assessment report for full details. PES: 1) Increased nutrient needs aeb pt is intubated, sedated, NPO r/t pt with no PO intake 2) Altered nutrition relate lab values aeb hyperkalemia, elev RFTs, elev GFR, hyperglycemia, mod hypoalbuminemia r/t current/chronic medical condition Comments: Will continue to monitor NPO status, skin status, pertinent labs and weight trends. Will f/u in 2-3 days. 1) If pt remains NPO for the next 48 hours, consider EN nutrition support Nepro with Carb Steady 1.8 @ 40 ml/hr goal rate as tolerated and per MD approval OR resume PN support. 3) Gradually advance pt to oral Renal Standard diet when medically feasible and as tolerated 4) Continue with current plan of care Addendum: 04/22/20 at [address] pt is on PN support with Clinimix @ 42 ml/hr providing 240 kcals and 42.5 gm proteins.
[2020-04-22] MEDS ORDERED: POTASSIUM CHL 20MEQ/100ML 100 ML IV ONE (13:00)
--- NOTE | 2020-04-22 14:08 | NUR ---
ABG RESULTS REPORTED TO DR. LOCKETT. RECEIVED T.O. AT THIS TIME TO EXTUBATE PT.
--- NOTE | 2020-04-22 14:20 | NUR ---
PT. EXTUBATED AND PLACED ON 30% COOL AEROSOL MASK. HR=92,RR=16,LF33=025%. NO RESP. DISTRESS NOTED, BS. DECREASED, NO STIDOR NOTED. PT. DOING WELL AT THIS TIME.
--- NOTE | 2020-04-22 16:58 | NUR ---
CAMPAIGN CONSULTANT PHONES PATIENT'S NIECE - INFORMED HER OF PATIENT'S SUCCESSFUL EXTUBATION - VERBALIZES UNDERSTANDING AND STATES WILL INFORM PATIENT'S SISTER NATASHA.
[2020-04-22] MEDS: POTASSIUM CHL 20MEQ/100ML 100 ML IV SCH ×2 (17:24→19:07)
--- NOTE | 2020-04-22 19:40 | NUR ---
OPENING NOTE REPORT RECEIVED FROM JOHANNY RN. PATIENT IS ALERT AND ORIENTED, S/P EXTUBATION TODAY. PATIENT IS CONNECTED TO CONTINUOS BEDSIDE MONITORS. PATIENT TRYING TO VERBALIZE NEEDS. VOICE IS LOW AND RASPY, BUT AUDIBLE. PATIENT ABLE TO FOLLOW SIMPLE COMMANDS AND NOD HEAD YES OR NO APPROPRIATELY TO QUESTIONS. PATIENT PLACED ON 4L NASAL CANNULA, SPO2 MAINTAINING AT 100%. RIGHT SUBCLAVIAN HD CATH IN PLACE, LAST DIALYSIS WAS TODAY 04/22/20 WITH 2.8L OUT PER REPORT. RIGHT UPPER ARM MIDLINE 18G SALINE LOCKED. RIGHT TRIPLE LUMEN FEMORAL CATHETER-SEE IV SPREADSHEET. SKIN INTEGRITY ISSUE TO SACRAL AREA. MASD TO BUTTOCK/PERIRECTAL AREA. OPTIFOAM IN PLACE. Q2H TURNS IN PLACE.
[2020-04-22] MEDS ORDERED: CLINIMIX PER PHARMACY IV NR (20:00)
[2020-04-22] MEDS ORDERED: EPOETIN ALFA 4,000 UNIT/ML VL SC ONE (21:00)
[2020-04-22] MEDS: MIDAZOLAM DRIP 50 mg/50mL 50 ML IV SCH (21:27)
[2020-04-22] MEDS: ATORVASTATIN 20 MG TAB PO SCH (21:27)
[2020-04-22] MEDS: fentaNYL Drip 2500mCg/250mlNS 250 ML IV SCH (22:53)
[2020-04-23] VITALS (43 sets, daily range): BP systolic 96–172; BP diastolic 20–91
--- NOTE | 2020-04-23 01:12 | NUR ---
ROUNDED: COVERING ASSIGNED RN FOR LUNCH BREAK. EVEN AND UNLABORED BREATHING, NO SIGNS OF RESPIRATORY DISTRESS. VSS OTHERWISE. NO PAIN BEHAVIORS IDENTIFIED. WILL ENDORSE CARE BACK TO ASSIGNED RN
[2020-04-23 03:49] LABS: Hemoglobin 8.4 g/dL (12.2-16.2); White Blood Cell 6.3 10^3/uL (4.4-10.8)
[2020-04-23 03:51] LABS: Hematocrit 24.1 % (36.0-46.0); Mean Corpuscular Volume 91.6 fL (80.0-100.0); Platelet Count (auto) 85 10^3/uL (140-450); Red Blood Cells 2.63 10^6/uL (4.0-5.20); Red Cell Distribution Width 14.2 % (11.8-14.3)
[2020-04-23 03:53] LABS: Band Neutrophils % (manual) 0; Basophils % (manual) 0 (0.0-2.0); Blast Cells 0; Metamyelocytes % 0; Myelocytes % 0; Promyelocytes % 0; Reactive Lymphocytes 0
--- NOTE | 2020-04-23 04:00 | NUR ---
AM CARES PATIENT PROVIDED WITH COMPLETE BED BATH AND LINEN CHANGE. PATIENT NOTED TO HAVE SMALL GREENISH/BROWN LIQUID BM. PATIENT CLEANED AND BED BATH PERFORMED WITH CHG WIPES. COMPLETE LINEN AND GOWN CHANGE PROVIDED TO PATIENT. SKIN REASSESSED DURING THIS TIME. NO CHANGES SINCE START OF SHIFT. PATIENT REPOSITIONED AT THIS TIME. ORAL CARE PROVIDED TO PATIENT. NEW SUCTION TUBING AND CANISTER PROVIDED.
[2020-04-23 04:09] LABS: BUN/Creatinine Ratio 5.7; Calcium 9.1 mg/dL (8.5-10.1); Potassium 3.5 mmol/L (3.5-5.1)
[2020-04-23 04:10] LABS: % Iron Saturation 43.7 % (15-50)
[2020-04-23 04:30] LABS: Eosinophils % (manual) 24 (0-7); Lymphocytes % (manual) 19 (10.0-50.0); Monocytes % (manual) 2 (0-12)
[2020-04-23] MEDS: ACCU-CHEK COMFORT CURVE STRIP VI SCH ×3 (05:47→18:00)
[2020-04-23] MEDS: InsuLIN REG 1unit/0.01ml Soln (100units/ml) SC SCH ×3 (05:50→18:00)
--- NOTE | 2020-04-23 07:20 | NUR ---
CLOSING REPORT ENDORSED TO AM SHIFT RN TO ASSUME CARE OF PATIENT. PATIENT IS RESTING COMFORTABLY IN BED. PATIENT CONNECTED TO CONTINUOUS MONITORS AND IS NOW ON ROOM AIR WITH SPO2 95%, NO SOB OR DISTRESS NOTED.
--- NOTE | 2020-04-23 08:00 | NUR ---
LUNGS WITH EXP WHEEZES THROUGHOUT BILAT WITH MILD SOB NOTED WITH PATIENT SPEAKING. PATIENT ON RA - SAO2 99%, PATIENT DENIES SOB. RT MERCED NOTIFIED OF EXP WHEEZES-WILL GIVE TREATMENT. PATIENT'S VOICE RASPY AND DRY, PATIENT ORIENTED X 3 AND FOLLOWS ALL COMMANDS - MOVES ALL EXTREMITIES. PATIENT REPOSITIONED.
--- NOTE | 2020-04-23 08:45 | NUR ---
Respiratory note: PRN MEDNEB TX ADMINISTERED. LUNG SOUNDS COARSE EXP WHEEZES T/O, WITH IMPROVED AERATION POST-TX. NO STRIDOR NOTED. HR 79, RR 22, SPO2 97% ON ROOM AIR. WILL CONT TO MONITOR.
[2020-04-23] MEDS: PIPERACILLIN-TAZOB 2.25GM 50 ML IV SCH ×2 (10:15→22:31)
[2020-04-23] MEDS: PANTOPRAZOLE 40 MG/10 ML VIAL INJ IV SCH ×2 (10:15→22:32)
[2020-04-23 10:34] LABS: Albumin 2.1 g/dL (3.4-5.0); Calcium 8.8 mg/dL (8.5-10.1); Magnesium 1.9 mg/dL (1.6-2.6); Potassium 3.3 mmol/L (3.5-5.1)
[2020-04-23 10:38] LABS: BUN/Creatinine Ratio 5.6; Bilirubin, Total 0.4 mg/dL (0.2-1.0); Phosphorus 2.8 mg/dL (2.5-4.90); Total Protein 6.2 g/dL (6.4-8.2)
[2020-04-23] MEDS ORDERED: POTASSIUM CHL 20MEQ/100ML 100 ML IV ONE ×3 (11:00→23:30)
--- NOTE | 2020-04-23 14:32 | NUR ---
SWALLOW EVALUATED. PATIENT ALOC. PATIENT HAS LOWER TEETH ONLY. ABLE TO TOLERATE PUREE DIET TEXTURE WITH NECTAR THICKENED LIQUIDS WITH NO OVERT SIGNS OR SYMPTOMS OF ASPIRATION. PATIENT COUGHED ON TRIAL OF THIN LIQUIDS. NURSING NOTIFIED.
[2020-04-23] MEDS: POTASSIUM CHL 20MEQ/100ML 100 ML IV SCH ×2 (16:30→20:24)
--- NOTE | 2020-04-23 18:08 | NUR ---
Respiratory note: PT RECIEVED ON RA. PT AWAKE AND RESPONSIVE. NO RESP DISTRESS NOTED. SPO2 98%, HR 81, RR 16. BS CLEAR/DIMINISHED T/O. PT AWARE TO CALL FOR PRN TX'S IF SOB/WHEEZING.
--- NOTE | 2020-04-23 19:30 | NUR ---
OPENING NOTE REPORT RECEIVED FROM [facility] JACKIE CUEVAS. PATIENT IS AWAKE, ALERT/ORIENTED X4. PATIENT IS CONNECTED TO CONTINUOUS BEDSIDE MONITORS, HEART RATE IN 80'S, SPO2 98% ON ROOM AIR. NO SIGNS OF DISTRESS NOTED. PHYSICAL ASSESSMENT DONE-SEE INTERVENTIONS. NO NEW SKIN INTEGRITY ISSUES NOTED. MASD AROUND PERIRECTAL AREA. OPTIFOAM IN PLACE TO SACRUM. PATIENT HAS BEEN DOWNGRADED TO TELE. BED ASSIGNMENT 217A WITH JACKIE PALACIOS. WILL CALL AND GIVE REPORT SHORTLY.
--- NOTE | 2020-04-23 19:45 | NUR ---
REPORT/SBAR CALLED AND GAVE REPORT TO COMMERCIAL COLLECTIONS SPECIALISTJACKIE PALACIOS. RN WILL BE RECEIVING PATIENT IN ROOM 217A. ALL QUESTIONS ANSWERED.
[2020-04-23] MEDS ORDERED: CLINIMIX PER PHARMACY IV NR (20:00)
--- NOTE | 2020-04-23 20:55 | NUR ---
PATIENT BEING TRANSFERRED ONTO TELE BED TELE BOX PLACED ON PATIENT. TELE #[id number], PATIENT TO GO TO ROOM 217A.
--- NOTE | 2020-04-23 20:56 | NUR ---
FAMILY SPOKE WITH PATIENTS NIECE. CORRECT PASSWORD GIVEN, UPDATE PROVIDED, ALL QUESTIONS ANSWERED, FAMILY MADE AWARE OF ROOM CHANGE, PT GOING TO TELE.
--- NOTE | 2020-04-23 21:08 | NUR ---
ICU patient trans to floor MIGUEL OLIVARES transferred to ROOM 217A via gurney on electronic device monitor and portable 02. Patient placed on Tele box #[id number]. All patient medications and personal belongings transferred with patient to receiving floor. Patient care transferred to JACKIE PALACIOS.
[2020-04-23] MEDS: ATORVASTATIN 20 MG TAB PO SCH (22:32)
[2020-04-24] MEDS: ACCU-CHEK COMFORT CURVE STRIP VI SCH ×5 (00:04→23:38)
[2020-04-24] MEDS: ACETAMINOPHEN 325 MG TAB PO PRN (01:54)
[2020-04-24 05:00] VITALS: BP 154/96
[2020-04-24 05:30] VITALS: BP 146/85
[2020-04-24] MEDS: InsuLIN REG 1unit/0.01ml Soln (100units/ml) SC SCH ×5 (05:40→23:47)
[2020-04-24 06:41] LABS: Hematocrit 24.2 % (36.0-46.0); Hemoglobin 8.6 g/dL (12.2-16.2); Mean Corpuscular Hemoglobin 31.8 pg (28.0-32.0); Mean Corpuscular Hgb Conc. 35.3 g/dL (32.0-36.0); Platelet Count (auto) 94 10^3/uL (140-450); Red Blood Cells 2.69 10^6/uL (4.0-5.20); Red Cell Distribution Width 14.3 % (11.8-14.3); White Blood Cell 7.5 10^3/uL (4.4-10.8)
[2020-04-24 06:54] LABS: Albumin 2.3 g/dL (3.4-5.0); Calcium 9.2 mg/dL (8.5-10.1)
[2020-04-24 06:58] LABS: BUN/Creatinine Ratio 6.3; Bilirubin, Total 0.4 mg/dL (0.2-1.0); Total Protein 6.6 g/dL (6.4-8.2)
[2020-04-24] MEDS ORDERED: SODIUM CHL 0.9% 1000 ML BAG XX ONE (07:00)
[2020-04-24 07:59] LABS: Band Neutrophils % (manual) 0; Basophils % (manual) 0 (0.0-2.0); Blast Cells 0; Metamyelocytes % 0; Myelocytes % 0; Promyelocytes % 0; Reactive Lymphocytes 0
--- NOTE | 2020-04-24 08:00 | NUR ---
OPENING SHIFT NOTE ASSUMED CARE OF PATIENT AWAKE. NO S/S OF DISTRESS NOTED OR COMPLAINTS OF PAIN. PATIENT UPDATED ON POC FOR THE DAY AND ALL QUESTIONS ANSWERED. BED IS IN LOWEST, LOCKED POSITION WITH SIDE RAILS UP X2, CALL LIGHT WITHIN REACH, AND BED ALARM ON FOR SAFETY. WILL CONTINUE TO MONITOR Q1H AND PRN.
[2020-04-24 09:00] VITALS: BP 99/64
[2020-04-24] MEDS: PANTOPRAZOLE 40 MG/10 ML VIAL INJ IV SCH ×2 (10:27→22:37)
[2020-04-24] MEDS: PIPERACILLIN-TAZOB 2.25GM 50 ML IV SCH ×2 (10:27→22:37)
--- NOTE | 2020-04-24 11:10 | NUR ---
HD DIALYSIS START TIME: 1110 END TIME: 1410 2.2L REMOVED. PATIENT TOLERATED WELL. WILL CONTINUE CARE.
[2020-04-24 11:38] LABS: Eosinophils % (manual) 21 (0-7); Lymphocytes % (manual) 11 (10.0-50.0); Monocytes % (manual) 5 (0-12)
--- NOTE | 2020-04-24 11:55 | NUR ---
Nutrition Followup Notes Wt: 74.8 kg Pt is s/p extubation and off sedation. Pt is s/p swallow eval by speech therapy, diet advanced to pureed per ST recommendations 04/23. Pt with inadequate po intake aeb pt with 25% po intake 04/24 so far per RN note. pt also with Clinimix running at 42ml/hr providing 340 kcal/liter. Est Energy needs: 3714-3824 kcals (27-30 kcal/kgBW), Est Protein needs: 81-95 gms/day (1.2-1.4 gm/kgBW) reassesed due to HD. Will continue to monitor and reassess prn. LABS: BUN 31H, Creat 4.91H, Alb 2.3L GI: Pt with 3 BMs 04/24 per RN note BS: 12 high risk. Refer to wound assessment report for full details. PES: Resolved: pt diet advanced to pureed with inadequate intake1) Increased nutrient needs aeb pt is intubated, sedated, NPO r/t pt with no PO intake 2) Altered nutrition relate lab values aeb hyperkalemia, elev RFTs, elev GFR, hyperglycemia, mod hypoalbuminemia r/t current/chronic medical condition Comments: Will continue to monitor po intake, skin status, pertinent labs and weight trends. Will f/u in 3-5 days. 1) Continue with PN support with po diet d/t inadequate intake 2) Consider adding Ensure HP TID 3) Continue with current plan of care
[2020-04-24 13:11] VITALS: BP 143/40
[2020-04-24 16:46] VITALS: BP 160/64
--- NOTE | 2020-04-24 18:26 | NUR ---
Respiratory note: PT RECIEVED ON RA. PT AWAKE AND RESPONSIVE. NO RESP DISTRESS NOTED. SPO2 97%, HR 80, RR 18. BS CLEAR/DIMINISHED T/O. PT AWARE TO CALL FOR PRN TX'S IF SOB/WHEEZING.
--- NOTE | 2020-04-24 19:45 | NUR ---
Opening Shift Note Assumed care of patient, awake and alert. No S/S of distress/SOB or pain noted. Instructed on POC and to call for assist PRN. Bed is in lowest locked position with bed rails up x2 and call light is within reach of the patient. To turn patient [id number], bed rails padded, seizure precautions in place.
[2020-04-24] MEDS ORDERED: CLINIMIX PER PHARMACY IV NR (20:00)
[2020-04-24] MEDS ORDERED: EPOETIN ALFA 4,000 UNIT/ML VL SC ONE (21:00)
[2020-04-24] MEDS: ATORVASTATIN 20 MG TAB PO SCH (22:38)
[2020-04-24] MEDS: LORazepam 0.5 MG TAB PO PRN (22:45)
[2020-04-25] VITALS (7 sets, daily range): BP systolic 120–156; BP diastolic 28–50
--- NOTE | 2020-04-25 02:00 | NUR ---
Optifoam: New optifoam placed on patients sacrum after being cleaned and dried. Barrier cream applied. Patient tolerated well.
[2020-04-25] MEDS: LORazepam 2MG/ML-1ML VIAL IV PRN (03:55)
[2020-04-25] MEDS: ACCU-CHEK COMFORT CURVE STRIP VI SCH ×4 (05:29→23:37)
[2020-04-25] MEDS: InsuLIN REG 1unit/0.01ml Soln (100units/ml) SC SCH ×4 (05:32→23:36)
[2020-04-25 06:41] LABS: Potassium 3.8 mmol/L (3.5-5.1)
[2020-04-25 06:50] LABS: Albumin 2.5 g/dL (3.4-5.0); BUN/Creatinine Ratio 5.8; Bilirubin, Total 0.4 mg/dL (0.2-1.0); Calcium 9.5 mg/dL (8.5-10.1); Phosphorus 2.2 mg/dL (2.5-4.90); Total Protein 7.1 g/dL (6.4-8.2)
--- NOTE | 2020-04-25 09:07 | NUR ---
AT BEDSIDE DR ASHER AT BEDSIDE UPDATING PATIENT ON POC FOR THE DAY.
[2020-04-25] MEDS: PIPERACILLIN-TAZOB 2.25GM 50 ML IV SCH ×2 (09:49→21:41)
[2020-04-25] MEDS: PANTOPRAZOLE 40 MG/10 ML VIAL INJ IV SCH ×2 (09:49→23:57)
--- NOTE | 2020-04-25 10:02 | NUR ---
WOUND CARE NOTE: Wound care in to see patient for reevaluation of wound and skin integrity monitoring. Patient has been extubated and now in [facility]/telemetry unit. Patient is resting in bed in Rm. 217A. Patient is awake, alert and able to verbalize needs. She's in no stated pain at this time and she appears to be in no pain using Lowe Guzman Faces Pain Scale. Patient needs assistance in turning and repositioning and her Gilles score is 11. Skin assessment done with the assistance of patient's nurse, JACKIE Butler. Patient's wound to R buttock is now closed with dry peeling skin to sacrum from resolving MASD. Marsha care given,applied Z Guard cream and Opti foam sacral dressing to upper sacrum as preventative. New photograph of patients' sacrum are taken for reference. Repositioned patient for comfort facing her Lt side, redistributed pressure points with pillows. Patient tolerated well. Bed in low position, call hickey within reach, bed alarm on. RECOMMENDATION: Continuation of all wound care orders prescribed by MD, continue with skin/wound plan of care, continue monitoring by wound care while patient is hospitalized. Addendum: 04/25/20 at 1559 by Denia Mckeon RN Amended: Links added.
--- NOTE | 2020-04-25 11:10 | NUR ---
Respiratory note: PT ASSESSED FOR PRN MED NEB. PT ON ROOM AIR SPO2 98%, RR 19, HR 87. PT IN NO DISTRESS AT THIS TIME. PRN MED NEBS ARE GOING TO BE DC'D DUE TO NO INDICATION FOR TREATMENT FOR 48 HOURS.
[2020-04-25] MEDS ORDERED: SODIUM PHOSPHATES 13 MEQ in SODIUM CHL 0.9% 100 ML IV ONE (13:00)
--- NOTE | 2020-04-25 16:34 | NUR ---
PATIENT REFUSED PT. Addendum: 04/25/20 at 1635 by REMEDIOS LEON PTT Amended: Links added.
[2020-04-25] MEDS ORDERED: CLINIMIX PER PHARMACY IV NR (20:00)
[2020-04-25] MEDS: ATORVASTATIN 20 MG TAB PO SCH (23:57)
[2020-04-26] MEDS: LORazepam 0.5 MG TAB PO PRN ×2 (02:49→15:14)
[2020-04-26 05:00] VITALS: BP 176/72
[2020-04-26] MEDS: InsuLIN REG 1unit/0.01ml Soln (100units/ml) SC SCH ×3 (06:00→18:00)
[2020-04-26] MEDS: ACCU-CHEK COMFORT CURVE STRIP VI SCH ×3 (06:32→18:00)
--- NOTE | 2020-04-26 07:50 | NUR ---
Opening Shift Note Assumed care of patient. Patient is awake, alert and oriented x 3-4 with delayed response. Bed is in lowest and locked position with bed alarm on side rails up x 2 and call light within reach. No S/S of distress/SOB or pain. Skin assessment shows a pressure area on lower back with scaly peeling skin. There are healed pressure areas on the sacrum. Repositioned patient to the left side with a pillow and pillows are elevating both arms. Patient Instructed on POC and to call for assist PRN, will continue to monitor for changes Q1hr and PRN.
[2020-04-26 09:18] VITALS: BP 94/44
[2020-04-26 10:45] LABS: Albumin 2.4 g/dL (3.4-5.0); Calcium 9.8 mg/dL (8.5-10.1); Magnesium 1.9 mg/dL (1.6-2.6); Potassium 3.8 mmol/L (3.5-5.1)
--- NOTE | 2020-04-26 10:46 | NUR ---
AT BEDSIDE DR CASILLAS AT BEDSIDE, DISCUSSING POC, MD RIBEIRO PT WILL BE DISCHARGED TO SNF, [facility]
[2020-04-26 10:49] LABS: BUN/Creatinine Ratio 6.4; Bilirubin, Total 0.4 mg/dL (0.2-1.0); Phosphorus 3.4 mg/dL (2.5-4.90)
[2020-04-26] MEDS: PANTOPRAZOLE 40 MG/10 ML VIAL INJ IV SCH (11:19)
[2020-04-26] MEDS: PIPERACILLIN-TAZOB 2.25GM 50 ML IV SCH (11:19)
[2020-04-26] MEDS ORDERED: KEP500T PO (12:22)
--- NOTE | 2020-04-26 12:24 | NUR ---
re-assessment Per consult dc planning for today. Per patients torri Armijo patient is to return to [facility] on discharge. Patient lives there custodial. Addendum: 04/26/20 at 1226 by Niesha Douglas Amended: Links added.
[2020-04-26 13:00] VITALS: BP 164/94
[2020-04-26] MEDS: ACETAMINOPHEN 325 MG TAB PO PRN (15:14)
--- NOTE | 2020-04-26 16:31 | NUR ---
D/C Planning Per SS consult for patient to return to [facility] . Faxed clinical information to facility. Per Yoli with [facility] they will need a COVID test before patient can return to facility. Informed JACKIE Bartlett. Transportation will be arranged by facility once COVID test results are faxed.
[2020-04-26 17:00] VITALS: BP 148/123
--- NOTE | 2020-04-26 17:45 | NUR ---
FAXED RAMAN NEGATIVE RESULTS TO [facility] SENT RESULTS TO , CALLED AND SPOKE WITH RUBY (RN RADIO COMMENTATOR) REGARDING POSSIBLE TRANSPORTATION, PAGED FILM SPLICER COLOR FINISHER JOCELYN REGARDING ARRANGING TRANSPORTATION TO SNF
--- NOTE | 2020-04-26 18:20 | NUR ---
RECEIVED CALL BACK FROM RUBY MEJIA FROM [facility] STATES [facility] WILL TRANSPORT PT @ 5500, WILL CONT WITH DC
--- NOTE | 2020-04-26 19:40 | NUR ---
Opening Shift Note Assumed care of patient, awake and alert. No S/S of distress/SOB or pain. Instructed on POC and to call for assist PRN, will continue to monitor for changes Q1hr and PRN.
[2020-04-26] MEDS ORDERED: CLINIMIX PER PHARMACY IV NR (20:00)
--- NOTE | 2020-04-26 21:30 | NUR ---
Transfer Patient transferred to [facility] via [facility]. TELE BOX D/C,MIDLINE and CENTRAL line D/C dressings clean and intact. Patient in no signs of distress or SOB.
[2020-04-27] MEDS ORDERED: SODIUM CHL 0.9% 1000 ML BAG XX ONE (07:00)
[2020-04-27] MEDS ORDERED: EPOETIN ALFA 4,000 UNIT/ML VL SC ONE (21:00)
== END 2020-04-26 21:30 | DRG 207 ==
LOC: EDBD 05:18 → ER 05:18 → TELE 05:19 → DOU IN ICU 14:10 → ICU WEST 04-16 06:19 → TELE-CENTR 04-23 21:20
PROVIDERS: ADMIT Hospitalist; ATTEND Internal Medicine Pulmonary Disease
PROC: 5A1955Z Respiratory Ventilation, Greater than 96 Consecutive Hours (ICD-10-PCS; principal; 2020-04-13)
PROC: 30233N1 Transfusion of Nonautologous Red Blood Cells into Peripheral Vein, Percutaneous Approach (ICD-10-PCS; 2020-04-13)
PROC: 30233K1 Transfusion of Nonautologous Frozen Plasma into Peripheral Vein, Percutaneous Approach (ICD-10-PCS; 2020-04-13)
PROC: 0T9B70Z Drainage of Bladder with Drainage Device, Via Natural or Artificial Opening (ICD-10-PCS; 2020-04-13)
PROC: 02HV33Z Insertion of Infusion Device into Superior Vena Cava, Percutaneous Approach (ICD-10-PCS; 2020-04-13)
PROC: 0BH17EZ Insertion of Endotracheal Airway into Trachea, Via Natural or Artificial Opening (ICD-10-PCS; 2020-04-14)
PROC: 0DB68ZX Excision of Stomach, Via Natural or Artificial Opening Endoscopic, Diagnostic (ICD-10-PCS; 2020-04-14)
PROC: 5A1D70Z Performance of Urinary Filtration, Intermittent, Less than 6 Hours Per Day (ICD-10-PCS; 2020-04-14)
PROC: 30233N1 Transfusion of Nonautologous Red Blood Cells into Peripheral Vein, Percutaneous Approach (ICD-10-PCS; 2020-04-16)
PROC: 5A1D70Z Performance of Urinary Filtration, Intermittent, Less than 6 Hours Per Day (ICD-10-PCS; 2020-04-16)
PROC: 5A1D70Z Performance of Urinary Filtration, Intermittent, Less than 6 Hours Per Day (ICD-10-PCS; 2020-04-20)
PROC: 5A1D70Z Performance of Urinary Filtration, Intermittent, Less than 6 Hours Per Day (ICD-10-PCS; 2020-04-22)
PROC: 5A1D70Z Performance of Urinary Filtration, Intermittent, Less than 6 Hours Per Day (ICD-10-PCS; 2020-04-24)
DX: J96.01 Acute respiratory failure with hypoxia (principal); N18.6 End stage renal disease; R57.1 Hypovolemic shock; G93.41 Metabolic encephalopathy; K92.2 Gastrointestinal hemorrhage, unspecified; G40.419 Other generalized epilepsy and epileptic syndromes, intractable, without status epilepticus; D62 Acute posthemorrhagic anemia; I12.0 Hypertensive chronic kidney disease with stage 5 chronic kidney disease or end stage renal disease; G93.1 Anoxic brain damage, not elsewhere classified; I69.351 Hemiplegia and hemiparesis following cerebral infarction affecting right dominant side; E46 Unspecified protein-calorie malnutrition; M19.90 Unspecified osteoarthritis, unspecified site; E11.21 Type 2 diabetes mellitus with diabetic nephropathy; E11.40 Type 2 diabetes mellitus with diabetic neuropathy, unspecified; E11.22 Type 2 diabetes mellitus with diabetic chronic kidney disease; E11.65 Type 2 diabetes mellitus with hyperglycemia; K21.9 Gastro-esophageal reflux disease without esophagitis; D63.1 Anemia in chronic kidney disease; F03.90 Unspecified dementia, unspecified severity, without behavioral disturbance, psychotic disturbance, mood disturbance, and anxiety; I48.91 Unspecified atrial fibrillation; K44.9 Diaphragmatic hernia without obstruction or gangrene; E87.6 Hypokalemia; I95.9 Hypotension, unspecified; Z20.828 Contact with and (suspected) exposure to other viral communicable diseases; Z66 Do not resuscitate; Z79.4 Long term (current) use of insulin; Z99.2 Dependence on renal dialysis; Z88.8 Allergy status to other drugs, medicaments and biological substances; Z88.5 Allergy status to narcotic agent; Z79.899 Other long term (current) drug therapy; Z79.82 Long term (current) use of aspirin; Z79.01 Long term (current) use of anticoagulants; Z79.891 Long term (current) use of opiate analgesic; Z83.3 Family history of diabetes mellitus; Z82.49 Family history of ischemic heart disease and other diseases of the circulatory system; Z68.30 Body mass index [BMI] 30.0-30.9, adult; Z82.3 Family history of stroke
CPT/HCPCS: 36415; 36600; 43239; 70450; 71045; 80048; 80053; 80061; 80202; 82040; 82805; 82962; 83036; 83540; 83550; 83735; 84100; 84132; 84478; 84484; 85007; 85014; 85018; 85025; 85027; 85610; 85730; 86850; 86900; 86901; 86920; 87040; 87070; 87081; 87205; 87426; 90935; 92610; 93005; 94002; 94003; 94640; 95819; 97110; 97530; 99291; C9113; G0378; J0171; J0330; J0885; J1642; J1815; J2250; J2543; J3480; J7060

== ENCOUNTER 2020-07-28 14:26 | Inpatient (IN) | payer MEDICARE, MEDICAID ==
[~2020-07-28] VITALS: Ht 160 cm; Wt 65.4 kg
[~2020-07-28 14:26] MED LIST changes: +ACET-6 PO; -ACYC-166 PO; +ALBUAER3 IN; +ATOR20TA50 PO; +BISA10SU52 PR; +ENAL5TAB10 PO; -LORA0.5T20 PO; +LORA1TAB23 PO; +MAGNSUS48 PO; -MIRT15TA PO; +NITR0.2D3 TD; +NITR0.4S29 SL; -SEVE800T8
[2020-07-28 21:21] LABS: Basophils # (auto) 0 10 ^3/uL (0-0.2); Eosinophils # (auto) 0.1 10 ^3/uL (0-0.8); Monocytes # (auto) 0.3 10 ^3/uL (0-1.3); Red Blood Cells 1.83 10^6/uL (4.0-5.20); White Blood Cell 4.9 10^3/uL (4.4-10.8)
[2020-07-28 21:25] LABS: Basophils % (auto) 0.5 % (0.0-2.0); Eosinophils % (auto) 1.3 % (0.0-7.0); Hematocrit 17.3 % (36.0-46.0); Lymphocytes # (auto) 1.6 10 ^3/uL (0.4-5.4); Lymphocytes % (auto) 31.9 % (10.0-50.0); Mean Corpuscular Hemoglobin 32.2 pg (28.0-32.0); Mean Corpuscular Volume 94.7 fL (80.0-100.0); Monocytes % (auto) 7.1 % (0.0-12.0); Neutrophils # (auto) 2.9 10 ^3/uL (1.6-8.6); Neutrophils % (auto) 59.2 % (37.0-80.0); Platelet Count (auto) 75 10^3/uL (140-450)
[2020-07-28 21:50] LABS: Albumin 3.4 g/dL (3.4-5.0); Bilirubin, Total 0.5 mg/dL (0.2-1.0); Calcium 10.3 mg/dL (8.5-10.1); Total Protein 7.9 g/dL (6.4-8.2)
[2020-07-28 21:51] LABS: Hemoglobin 5.9 g/dL (12.2-16.2)
[2020-07-28 21:58] LABS: INR 1.09 (0.9-1.15); Partial Thromboplastin Time 25.8 sec (23.0-31.2)
[2020-07-28] MEDS ORDERED: ONDANSETRON ODT 4 MG TAB PO ONE (22:00)
[2020-07-28] MEDS ORDERED: HYDROcodone-ACET 10/325MG TAB PO ONE (22:00)
[2020-07-28] MEDS ORDERED: cefTRIAXone SOD 1,000 MG VL IM ONE (22:00)
[2020-07-28 22:15] LABS: Potassium 6.8 mmol/L (3.5-5.1)
[2020-07-28] MEDS ORDERED: PANTOPRAZOLE 40mg/50ML NS AE 50 ML IV ONE (22:15)
[2020-07-28] MEDS ORDERED: CALCIUM GLUC 4.65meq/50ml D5AE 50 ML IV ONE (22:30)
[2020-07-28] MEDS ORDERED: SODIUM BICARBONATE 8.4% INJ 50ML SYRINGE IV ONE (22:30)
[2020-07-28] MEDS ORDERED: SODIUM CHLORIDE 0.9% 500 ML IV ONE (23:00)
[2020-07-29] MEDS ORDERED: InsuLIN REG 1unit/0.01ml Soln (100units/ml) IV ONE ×2 (01:15→04:00)
[2020-07-29] MEDS ORDERED: DEXTROSE (50%) 50ML SYRG IV ONE ×2 (01:15→04:00)
[2020-07-29 01:57] LABS: Albumin 2.9 g/dL (3.4-5.0); Calcium 9.8 mg/dL (8.5-10.1)
[2020-07-29 02:05] LABS: BUN/Creatinine Ratio 18.9; Bilirubin, Total 0.4 mg/dL (0.2-1.0)
[2020-07-29] MEDS ORDERED: DEXTROSE (50%) 50ML SYRG IV PRN (02:15)
[2020-07-29] MEDS ORDERED: MORPHINE SULF INJ 2 MG/ML SYRINGE 1ML IV PRN (02:15)
[2020-07-29] MEDS ORDERED: NITROGLYCERIN 0.4 MG SL TAB SL PRN (02:15)
[2020-07-29 02:36] LABS: Potassium 6.8 mmol/L (3.5-5.1)
[2020-07-29 03:37] VITALS: BP 110/61
[2020-07-29 03:54] VITALS: BP 109/53
[2020-07-29] MEDS ORDERED: CALCIUM GLUC 4.65meq/50ml D5AE 50 ML IV ONE (04:00)
[2020-07-29] MEDS ORDERED: SODIUM BICARBONATE 8.4% INJ 50ML SYRINGE IV ONE (04:00)
[2020-07-29] MEDS ORDERED: ALBUTEROL SULF 2.5 MG/0.5ML(0.5%) NEB SOLN NEB ONE (04:00)
[2020-07-29] MEDS: ACCU-CHEK COMFORT CURVE STRIP VI SCH ×3 (07:26→18:00)
[2020-07-29 07:27] VITALS: BP 126/88
[2020-07-29] MEDS: InsuLIN REG 1unit/0.01ml Soln (100units/ml) SC SCH ×3 (07:27→18:00)
[2020-07-29 07:29] VITALS: BP 126/88
[2020-07-29] MEDS ORDERED: SODIUM CHL 0.9% 1000 ML BAG XX ONE (07:45)
[2020-07-29 07:50] VITALS: BP 114/39
[2020-07-29] MEDS: PANTOPRAZOLE 40 MG/10 ML VIAL INJ IV SCH ×2 (13:01→22:00)
[2020-07-29] MEDS ORDERED: EPOETIN ALFA 10,000 UNIT/1 ML VIAL SC ONE (21:00)
[2020-07-30] MEDS: InsuLIN REG 1unit/0.01ml Soln (100units/ml) SC SCH ×3 (08:54→13:30)
[2020-07-30] MEDS: ACCU-CHEK COMFORT CURVE STRIP VI SCH ×4 (08:54→13:30)
[2020-07-30] MEDS: PANTOPRAZOLE 40 MG/10 ML VIAL INJ IV SCH ×2 (10:00→22:00)
[2020-07-30 21:55] VITALS: BP 145/79
[2020-07-30] MEDS: levETIRAcetam 500 MG TAB PO SCH (23:00)
[2020-07-31 04:37] VITALS: BP 124/67
[2020-07-31] MEDS: ACCU-CHEK COMFORT CURVE STRIP VI SCH ×5 (06:00→23:36)
[2020-07-31] MEDS: InsuLIN REG 1unit/0.01ml Soln (100units/ml) SC SCH ×5 (06:00→23:36)
[2020-07-31 08:00] VITALS: BP 140/41
[2020-07-31] MEDS: PANTOPRAZOLE 40 MG/10 ML VIAL INJ IV SCH ×2 (10:00→22:00)
[2020-07-31] MEDS: levETIRAcetam 500 MG TAB PO SCH ×2 (10:26→22:00)
[2020-07-31] MEDS ORDERED: SODIUM CHL 0.9% 1000 ML BAG XX ONE (10:45)
[2020-07-31 12:00] VITALS: BP 140/100
[2020-07-31 13:31] LABS: Calcium 9.9 mg/dL (8.5-10.1); Potassium 4.4 mmol/L (3.5-5.1)
[2020-07-31 13:34] LABS: BUN/Creatinine Ratio 11.4; Bilirubin, Total 0.5 mg/dL (0.2-1.0); Total Protein 7.2 g/dL (6.4-8.2)
[2020-07-31 13:36] LABS: Basophils # (auto) 0 10 ^3/uL (0-0.2); Eosinophils # (auto) 0.1 10 ^3/uL (0-0.8); Lymphocytes # (auto) 0.9 10 ^3/uL (0.4-5.4); Monocytes # (auto) 0.7 10 ^3/uL (0-1.3); Neutrophils # (auto) 3.1 10 ^3/uL (1.6-8.6)
[2020-07-31 13:38] LABS: Basophils % (auto) 0.4 % (0.0-2.0); Eosinophils % (auto) 2.3 % (0.0-7.0); Hematocrit 22.2 % (36.0-46.0); Hemoglobin 7.4 g/dL (12.2-16.2); Lymphocytes % (auto) 17.9 % (10.0-50.0); Mean Corpuscular Hemoglobin 29.5 pg (28.0-32.0); Mean Corpuscular Hgb Conc. 33.5 g/dL (32.0-36.0); Mean Corpuscular Volume 88.1 fL (80.0-100.0); Monocytes % (auto) 14.9 % (0.0-12.0); Neutrophils % (auto) 64.5 % (37.0-80.0); Nucleated Red Blood Cells % 0.1 %; Platelet Count (auto) 88 10^3/uL (140-450); Red Blood Cells 2.52 10^6/uL (4.0-5.20); Red Cell Distribution Width 15.3 % (11.8-14.3); White Blood Cell 4.9 10^3/uL (4.4-10.8)
[2020-07-31 17:00] VITALS: BP 131/50
[2020-07-31] MEDS ORDERED: EPOETIN ALFA 10,000 UNIT/1 ML VIAL SC ONE (21:00)
[2020-08-01 05:14] VITALS: BP 123/72
[2020-08-01] MEDS: ACCU-CHEK COMFORT CURVE STRIP VI SCH ×3 (06:00→17:18)
[2020-08-01] MEDS: InsuLIN REG 1unit/0.01ml Soln (100units/ml) SC SCH ×3 (06:00→17:18)
[2020-08-01] MEDS: levETIRAcetam 500 MG TAB PO SCH ×2 (09:04→21:50)
[2020-08-01] MEDS: PANTOPRAZOLE 40 MG/10 ML VIAL INJ IV SCH ×2 (09:04→21:47)
[2020-08-01 21:27] VITALS: BP 125/70
== END 2020-08-01 22:53 | DRG 377 ==
LOC: ER 14:26 → EDBD 14:26 → TELE 14:27 → TELE-CENTR 07-30 21:57
PROVIDERS: ADMIT Nurse Practitioner; ATTEND Family Medicine
PROC: 30233N1 Transfusion of Nonautologous Red Blood Cells into Peripheral Vein, Percutaneous Approach (ICD-10-PCS; principal; 2020-07-29)
PROC: 5A1D70Z Performance of Urinary Filtration, Intermittent, Less than 6 Hours Per Day (ICD-10-PCS; 2020-07-29)
PROC: 5A1D70Z Performance of Urinary Filtration, Intermittent, Less than 6 Hours Per Day (ICD-10-PCS; 2020-07-31)
DX: K92.2 Gastrointestinal hemorrhage, unspecified (principal); I21.A1 Myocardial infarction type 2; N18.6 End stage renal disease; I12.0 Hypertensive chronic kidney disease with stage 5 chronic kidney disease or end stage renal disease; G93.49 Other encephalopathy; E87.5 Hyperkalemia; E78.5 Hyperlipidemia, unspecified; F32.9 Major depressive disorder, single episode, unspecified; I48.0 Paroxysmal atrial fibrillation; D25.9 Leiomyoma of uterus, unspecified; E11.22 Type 2 diabetes mellitus with diabetic chronic kidney disease; K21.9 Gastro-esophageal reflux disease without esophagitis; R42 Dizziness and giddiness; D50.0 Iron deficiency anemia secondary to blood loss (chronic); G40.909 Epilepsy, unspecified, not intractable, without status epilepticus; Z79.4 Long term (current) use of insulin; Z99.2 Dependence on renal dialysis; Z82.3 Family history of stroke; Z83.3 Family history of diabetes mellitus; Z86.73 Personal history of transient ischemic attack (TIA), and cerebral infarction without residual deficits; Z91.19 Patient's noncompliance with other medical treatment and regimen; Z88.6 Allergy status to analgesic agent; Z88.5 Allergy status to narcotic agent; E11.649 Type 2 diabetes mellitus with hypoglycemia without coma; Z20.822 Contact with and (suspected) exposure to COVID-19
CPT/HCPCS: 36415; 36430; 70450; 71045; 74176; 80053; 82962; 83880; 84132; 84484; 85025; 85610; 85730; 86850; 86900; 86901; 86920; 87426; 90935; 93005; 94644; 96365; 96367; 96375; 99291; C9113; G0378; J0610; J0885; J1815

== ENCOUNTER 2021-03-02 15:27 | Emergency (ER) | payer MEDICARE, MEDICAID ==
[~2021-03-02] VITALS: Ht 124.5 cm; Wt 54.4 kg
[~2021-03-02 15:27] MED LIST changes: -NITR0.2D3 TD; +NITR0.2D5 TD
[2021-03-02] MEDS ORDERED: SODIUM CHLORIDE 0.9% 1,000 ML IV ONE ×2 (17:00→17:15)
[2021-03-02] MEDS ORDERED: MORPHINE SULFATE 4 MG/ML SYR/VIAL IV ONE (17:15)
[2021-03-02] MEDS ORDERED: ONDANSETRON HCL 4 MG/2 ML VIAL IV ONE (17:15)
[2021-03-02] MEDS ORDERED: SODIUM CHLORIDE 0.9% 500 ML IVB ONE (17:15)
[2021-03-02] MEDS ORDERED: IOHEXOL 300 MG/ML 100ML BOTTLE IJ ONE (20:47)
[2021-03-02 21:45] LABS: Albumin 3.2 g/dL (3.4-5.0); BUN/Creatinine Ratio 6.5; Basophils # (auto) 0 10 ^3/uL (0-0.2); Basophils % (auto) 0.4 % (0.0-2.0); Bilirubin, Total 0.5 mg/dL (0.2-1.0); Calcium 9.6 mg/dL (8.5-10.1); Eosinophils # (auto) 0.1 10 ^3/uL (0-0.8); Eosinophils % (auto) 1.7 % (0.0-7.0); Hematocrit 33.6 % (36.0-46.0); Lymphocytes # (auto) 0.9 10 ^3/uL (0.4-5.4); Lymphocytes % (auto) 19.9 % (10.0-50.0); Magnesium 2.6 mg/dL (1.6-2.6); Mean Corpuscular Hemoglobin 28.1 pg (28.0-32.0); Mean Corpuscular Hgb Conc. 32.7 g/dL (32.0-36.0); Mean Corpuscular Volume 86.2 fL (80.0-100.0); Monocytes # (auto) 0.5 10 ^3/uL (0-1.3); Monocytes % (auto) 10.2 % (0.0-12.0); Neutrophils # (auto) 3.2 10 ^3/uL (1.6-8.6); Neutrophils % (auto) 67.8 % (37.0-80.0); Nucleated Red Blood Cells % 0.2 %; Potassium 4.7 mmol/L (3.5-5.1); Red Cell Distribution Width 19.2 % (11.8-14.3); Total Protein 8.3 g/dL (6.4-8.2); White Blood Cell 4.7 10^3/uL (4.4-10.8)
[2021-03-03 01:15] VITALS: BP 115/62
== END 2021-03-03 02:38 | disposition home or self-care (01) ==
LOC: ER 15:27 → EDBD 15:27 → ER 03-03 02:38
DX: B37.3 Candidiasis of vulva and vagina (principal); R19.7 Diarrhea, unspecified; M25.512 Pain in left shoulder; M75.02 Adhesive capsulitis of left shoulder; J44.9 Chronic obstructive pulmonary disease, unspecified; E11.22 Type 2 diabetes mellitus with diabetic chronic kidney disease; I12.0 Hypertensive chronic kidney disease with stage 5 chronic kidney disease or end stage renal disease; N18.6 End stage renal disease; E78.5 Hyperlipidemia, unspecified; Z87.11 Personal history of peptic ulcer disease; Z79.899 Other long term (current) drug therapy; Z88.6 Allergy status to analgesic agent; Z88.5 Allergy status to narcotic agent; W18.39XA Other fall on same level, initial encounter; Y93.89 Activity, other specified; Y92.89 Other specified places as the place of occurrence of the external cause; Y99.8 Other external cause status
CPT/HCPCS: 36415; 71045; 73030; 73130; 74177; 80053; 83690; 83735; 84443; 85025; 99285; Q9967

== ENCOUNTER 2021-06-11 13:35 | Inpatient (IN) | payer MEDICARE, MEDICAID ==
[~2021-06-11] VITALS: Ht 157.5 cm; Wt 59.0 kg
[2021-06-11] MEDS: FAMOTIDINE (10MG/ML) 2ML VL IV SCH (11:11)
[2021-06-11 15:30] LABS: Basophils # (auto) 0 10 ^3/uL (0-0.2); Eosinophils # (auto) 0.1 10 ^3/uL (0-0.8); Lymphocytes # (auto) 0.7 10 ^3/uL (0.4-5.4)
[2021-06-11 15:33] LABS: Basophils % (auto) 0.8 % (0.0-2.0); Hematocrit 34.8 % (36.0-46.0); Hemoglobin 11.3 g/dL (12.2-16.2); Lymphocytes % (auto) 19.3 % (10.0-50.0); Mean Corpuscular Hemoglobin 27.6 pg (28.0-32.0); Mean Corpuscular Hgb Conc. 32.5 g/dL (32.0-36.0); Mean Corpuscular Volume 84.9 fL (80.0-100.0); Monocytes # (auto) 0.6 10 ^3/uL (0-1.3); Monocytes % (auto) 14.8 % (0.0-12.0); Neutrophils # (auto) 2.4 10 ^3/uL (1.6-8.6); Neutrophils % (auto) 63.1 % (37.0-80.0); Nucleated Red Blood Cells % 0.1 %; Red Cell Distribution Width 18.3 % (11.8-14.3); White Blood Cell 3.8 10^3/uL (4.4-10.8)
[2021-06-11 15:53] LABS: Albumin 3.4 g/dL (3.4-5.0); Calcium 9.8 mg/dL (8.5-10.1); Potassium 5.3 mmol/L (3.5-5.1)
[2021-06-11 15:59] LABS: BUN/Creatinine Ratio 7.1; Bilirubin, Total 0.6 mg/dL (0.2-1.0); Magnesium 2.6 mg/dL (1.6-2.6); Total Protein 8.1 g/dL (6.4-8.2)
[2021-06-11] MEDS ORDERED: CALCIUM GLUC 1,000mg/50ml-NS 50 ML IV ONE ×2 (19:45)
[2021-06-11] MEDS ORDERED: LORazepam 2MG/ML-1ML VIAL IV PRN (21:30)
[2021-06-11] MEDS ORDERED: DEXTROSE (50%) 50ML SYRG IV PRN (21:30)
[2021-06-11] MEDS ORDERED: ACETAMINOPHEN 325 MG TAB PO PRN (21:30)
[2021-06-11] MEDS ORDERED: hydrALAZINE HCL 20 MG/ML VL IV PRN (21:30)
[2021-06-11] MEDS ORDERED: ONDANSETRON HCL 4 MG/2 ML VIAL IV PRN (21:30)
[2021-06-11] MEDS ORDERED: DOCUSATE SOD 100 MG CAP PO PRN (21:30)
[2021-06-11] MEDS ORDERED: ATORVASTATIN 20 MG TAB PO SCH (22:00)
[2021-06-11] MEDS ORDERED: NITROGLYCERIN 0.4 MG SL TAB SL PRN (22:00)
[2021-06-11] MEDS ORDERED: ALBUTEROL SULF HFA 90MCG INH 200DOSE IN SCH (22:00)
[2021-06-11] MEDS: SODIUM CHLOR 0.9% PF (SALINE LOCK) 10ML VIAL/SYR IV SCH (22:55)
[2021-06-11] MEDS: ACCU-CHEK COMFORT CURVE STRIP VI SCH (22:55)
[2021-06-11] MEDS: InsuLIN REG 1unit/0.01ml Soln (100units/ml) SC SCH (22:57)
[2021-06-11 23:35] VITALS: BP 147/93
[2021-06-12] VITALS (7 sets, daily range): BP systolic 128–150; BP diastolic 71–103
[2021-06-12] MEDS ORDERED: HYDR-4798 PO (02:55)
[2021-06-12] MEDS ORDERED: LEVE100S9 PO (02:55)
[2021-06-12] MEDS ORDERED: PERCOT PO (02:55)
[2021-06-12] MEDS ORDERED: QUET1TAB11 PO (02:55)
[2021-06-12] MEDS ORDERED: B-CO1TAB44 PO (02:58)
[2021-06-12] MEDS ORDERED: ONDA-144 PO (03:01)
[2021-06-12] MEDS ORDERED: DOCU100T15 PO (03:02)
[2021-06-12] MEDS: SODIUM CHLOR 0.9% PF (SALINE LOCK) 10ML VIAL/SYR IV SCH ×2 (06:16→14:00)
[2021-06-12] MEDS: InsuLIN REG 1unit/0.01ml Soln (100units/ml) SC SCH ×3 (06:19→17:00)
[2021-06-12] MEDS: ACCU-CHEK COMFORT CURVE STRIP VI SCH ×3 (07:00→17:00)
[2021-06-12] MEDS: FAMOTIDINE (10MG/ML) 2ML VL IV SCH (09:02)
[2021-06-12] MEDS ORDERED: SODIUM ZIRCONIUM CYCL 10 GM PAK PO SCH (22:00)
== END 2021-06-12 23:48 | DRG 70 ==
LOC: EDBD 13:35 → EDUNIT# 13:35 → ER 13:35 → TELE 21:55 → TELE-WESTW 22:44
PROVIDERS: ADMIT Nurse Practitioner Family; ATTEND Nurse Practitioner Family
DX: G93.41 Metabolic encephalopathy (principal); N18.6 End stage renal disease; I12.0 Hypertensive chronic kidney disease with stage 5 chronic kidney disease or end stage renal disease; E87.5 Hyperkalemia; E78.5 Hyperlipidemia, unspecified; E11.22 Type 2 diabetes mellitus with diabetic chronic kidney disease; E87.70 Fluid overload, unspecified; D63.8 Anemia in other chronic diseases classified elsewhere; J44.9 Chronic obstructive pulmonary disease, unspecified; Z82.3 Family history of stroke; Z20.822 Contact with and (suspected) exposure to COVID-19; Z86.73 Personal history of transient ischemic attack (TIA), and cerebral infarction without residual deficits; Z87.11 Personal history of peptic ulcer disease; Z99.2 Dependence on renal dialysis; Z88.6 Allergy status to analgesic agent; Z88.5 Allergy status to narcotic agent; Z88.7 Allergy status to serum and vaccine
CPT/HCPCS: 36415; 70450; 71045; 80053; 80320; 82962; 83735; 84484; 85025; 87081; 87426; 93005; 96365; 96366; 99291; G0378; J3490; J7060

== ENCOUNTER 2021-10-15 18:05 | Emergency (ER) | payer MEDICARE, MEDICAID ==
[~2021-10-15] VITALS: Ht 162.6 cm; Wt 49.0 kg
[~2021-10-15 18:05] MED LIST changes: +B-CO1TAB44 PO; +DOCU100T15 PO; +HYDR-4798 PO; -LORA1TAB23 PO; -NITR0.2D5 TD; -NITR0.4S29 SL; -PANT40T PO; +QUET1TAB11 PO
[2021-10-15 20:39] LABS: Basophils # (auto) 0.1 10 ^3/uL (0-0.2); Basophils % (auto) 1.4 % (0.0-2.0); Eosinophils # (auto) 0 10 ^3/uL (0-0.8); Eosinophils % (auto) 0.4 % (0.0-7.0); Hematocrit 26.3 % (36.0-46.0); Hemoglobin 8.7 g/dL (12.2-16.2); Lymphocytes # (auto) 1.1 10 ^3/uL (0.4-5.4); Lymphocytes % (auto) 17.4 % (10.0-50.0); Mean Corpuscular Hemoglobin 28.5 pg (28.0-32.0); Mean Corpuscular Volume 86.5 fL (80.0-100.0); Monocytes # (auto) 0.8 10 ^3/uL (0-1.3); Monocytes % (auto) 12.5 % (0.0-12.0); Neutrophils # (auto) 4.3 10 ^3/uL (1.6-8.6); Neutrophils % (auto) 68.3 % (37.0-80.0); Nucleated Red Blood Cells % 0.1 %; Red Blood Cells 3.04 10^6/uL (4.0-5.20); Red Cell Distribution Width 17.7 % (11.8-14.3); White Blood Cell 6.3 10^3/uL (4.4-10.8)
[2021-10-15 20:44] LABS: Albumin 2.9 g/dL (3.4-5.0); Calcium 8.9 mg/dL (8.5-10.1); Potassium 3.3 mmol/L (3.5-5.1)
[2021-10-15 20:47] LABS: BUN/Creatinine Ratio 7.2; Bilirubin, Total 0.5 mg/dL (0.2-1.0); Total Protein 8.7 g/dL (6.4-8.2)
[2021-10-16 14:11] VITALS: BP 91/49
== END 2021-10-16 14:33 | disposition still patient (30) ==
LOC: ER 18:05 → EDBD 18:05 → ER 10-16 14:14
DX: S76.819A Strain of other specified muscles, fascia and tendons at thigh level, unspecified thigh, initial encounter (principal); I12.0 Hypertensive chronic kidney disease with stage 5 chronic kidney disease or end stage renal disease; E11.22 Type 2 diabetes mellitus with diabetic chronic kidney disease; N18.6 End stage renal disease; Z99.2 Dependence on renal dialysis; J44.9 Chronic obstructive pulmonary disease, unspecified; E78.5 Hyperlipidemia, unspecified; Z79.899 Other long term (current) drug therapy; Z79.82 Long term (current) use of aspirin; Z88.5 Allergy status to narcotic agent; Z88.6 Allergy status to analgesic agent; Z88.8 Allergy status to other drugs, medicaments and biological substances; X58.XXXA Exposure to other specified factors, initial encounter; Y93.89 Activity, other specified; Y92.89 Other specified places as the place of occurrence of the external cause; Y99.8 Other external cause status
CPT/HCPCS: 36415; 71045; 72192; 80053; 83880; 84484; 85025

== ENCOUNTER 2021-11-05 16:10 | Emergency (ER) | payer MEDICARE, MEDICAID ==
[~2021-11-05] VITALS: Ht 165.1 cm; Wt 51.3 kg
[2021-11-05 20:01] VITALS: BP 121/74
[2021-11-05] MEDS ORDERED: ONDANSETRON ODT 4 MG TAB PO ONE (20:15)
== END 2021-11-06 03:07 | disposition home or self-care (01) ==
LOC: EDBD 16:10 → ER 16:10
DX: N93.8 Other specified abnormal uterine and vaginal bleeding (principal); E11.22 Type 2 diabetes mellitus with diabetic chronic kidney disease; I12.0 Hypertensive chronic kidney disease with stage 5 chronic kidney disease or end stage renal disease; N18.6 End stage renal disease; E78.5 Hyperlipidemia, unspecified; J44.9 Chronic obstructive pulmonary disease, unspecified; Z88.6 Allergy status to analgesic agent
CPT/HCPCS: 76830; 76856; 99284; Q0162